=== PATIENT | male | born 1955 | race Caucasian/White ===

== ENCOUNTER → 2016-12-28 | Outpatient (CLI) | payer BC ==
[~2016-12-28] MED LIST: ATOR10TA82 PO; CRD4 PO; DOXA4TAB2 PO; LAMO100T16 PO; MIRT15TA PO; ROSU5TAB PO
== END | disposition home or self-care (01) ==
LOC: C.RDSM 15:07
PROVIDERS: ATTEND Family Medicine
DX: M54.18 Radiculopathy, sacral and sacrococcygeal region (principal); R10.30 Lower abdominal pain, unspecified

== ENCOUNTER → 2017-01-04 | Outpatient (CLI) | payer BC ==
--- NOTE | 2017-01-04 21:39 | DIAGNOSTIC IMAGING REPORT ---
LUMBAR SPINE MRI HISTORY: Low back pain. RT LUMBAR RADICULITIS TECHNIQUE: Multiplanar multisequence MRI of the lumbar spine was performed without the use of contrast. COMPARISON: Lumbar spine 12/28/2016. FINDINGS: For the purpose of the report the L5-S1 disc space will be located on axial image 27 of 30. No fracture or subluxation. Disc spaces are preserved for age. Paraspinal soft tissues are unremarkable. The conus terminates at the L1 level. Slightly heterogeneous marrow pattern which may be age-related. There are few scattered subcentimeter hemangioma within the vertebral bodies. Mild facet degenerative changes seen within the lower lumbar spine. L1-L2: No significant central canal or neural foraminal narrowing. L2-L3: No significant central canal or neural foraminal narrowing. L3-L4: No significant central canal or neural foraminal narrowing. L4-L5: No significant central canal or neural foraminal narrowing. L5-S1: No significant central canal or neural foraminal narrowing. IMPRESSION: 1. No significant central canal or neural foraminal narrowing. No disc herniations. 2. No fracture or subluxation within the lumbar spine. 3. Slightly heterogeneous marrow pattern within the visualized osseous structures. This may be age-related Electronically signed by: Donn Quispe M.D. 01/04/2017 9:37 PM Dictated Date/Time: 01/04/2017 9:30 PM
== END | disposition home or self-care (01) ==
LOC: C.MRI 19:39
PROVIDERS: ATTEND Family Medicine
DX: M54.16 Radiculopathy, lumbar region (principal); R10.30 Lower abdominal pain, unspecified

== ENCOUNTER → 2017-03-22 | Outpatient (CLI) | payer BC ==
[~2017-03-22] MED LIST changes: -ATOR10TA82 PO; +ATOR10TA88 PO; -DOXA4TAB2 PO; -MIRT15TA PO; -ROSU5TAB PO
--- NOTE | 2017-03-22 19:57 | DIAGNOSTIC IMAGING REPORT ---
MRI right knee RIGHT LOWER EXT JOINT WITHOUT CLINICAL HISTORY: R TIBIA NEUROPATHY Right pain. Trauma. TECHNIQUE: MRI multi axial acquisition COMPARISON STUDY: None FINDINGS: Normal signal characteristics the osseous structures throughout. No bone marrow replacing finding. Menisci are within normal limits. The collateral as well as cruciate ligaments are intact. All structures of the popliteal fossa are unremarkable. There is no evidence for abnormal mass or collection. IMPRESSION: 1. Overall negative study. 2. Normal-appearing popliteal fossa and associated components Electronically signed by: Vadim Stewart M.D. 03/22/2017 7:56 PM Dictated Date/Time: 03/22/2017 7:53 PM
== END | disposition home or self-care (01) ==
LOC: C.MRI 18:39
PROVIDERS: ATTEND Family Medicine
DX: G57.41 Lesion of medial popliteal nerve, right lower limb (principal); G57.31 Lesion of lateral popliteal nerve, right lower limb

== ENCOUNTER 2017-07-12 21:04 | Observation (INO) | payer BC ==
[~2017-07-12] VITALS: Ht 188 cm; Wt 92.7 kg
[2017-07-12 21:35] LABS: BASO % 0.5 %; BASO ABS # 0.03 K/uL (0-0.2); COMPLETE YES; HEMATOCRIT 39.4 % (42-52); IG% 0.3 %; LYMPH % 21.9 %; LYMPH ABS # 1.32 K/uL (1.2-3.4); MEAN CELL VOLUME 94.3 fL (80-100); MEAN CORPUSCULAR HEMOGLOBIN 32.1 pg (25-34); MEAN PLATELET VOLUME 8.5 fL (7.4-10.4); MONO % 11.6 %; NEUT % 63.7 %; PLATELET COUNT 180 K/uL (130-400); RED BLOOD COUNT 4.18 M/uL (4.7-6.1); WHITE BLOOD COUNT 6.03 K/uL (4.8-10.8)
[2017-07-12] MEDS ORDERED: SODIUM CHLORIDE 0.9% 1000ML 1,000 ML IV STA (21:35)
[2017-07-12] MEDS ORDERED: ASPIRIN 81 MG CHEW PO STA ×2 (21:35→21:37)
[2017-07-12] MEDS ORDERED: NITROGLYCERIN 0.4 MG SL PER TAB CHARGE SL PRN ×2 (21:45→23:45)
[2017-07-12 21:52] LABS: ALT/SGPT 28 U/L (12-78); BLOOD UREA NITROGEN 18 mg/dl (7-18); BUN/CREATININE RATIO 17.5 (10-20); CARBON DIOXIDE 29 mmol/L (21-32); CHLORIDE 104 mmol/L (98-107); CREATININE 1.04 mg/dl (0.60-1.40); GLUCOSE 96 mg/dl (70-99); POTASSIUM 3.7 mmol/L (3.5-5.1); SODIUM 139 mmol/L (136-145)
[2017-07-12 21:58] LABS: ALKALINE PHOSPHATASE 90 U/L (45-117); AST/SGOT 21 U/L (15-37); CKMB/CK RATIO 1.6 (0-3.0)
--- NOTE | 2017-07-12 22:15 | DIAGNOSTIC IMAGING REPORT ---
CHEST ONE VIEW PORTABLE HISTORY: Atypical CHEST PAIN COMPARISON: Chest 01/06/2012. FINDINGS: A few small bibasilar linear densities suggesting scarring or atelectasis. The lungs are otherwise clear. The heart is normal in size. No pleural effusions. No pneumothorax. Stable left upper rib deformities. IMPRESSION: No acute process. Electronically signed by: Donn Quispe M.D. 07/12/2017 10:14 PM Dictated Date/Time: 07/12/2017 10:13 PM
[2017-07-12] MEDS ORDERED: MIRT15TA PO (22:31)
[2017-07-12] MEDS ORDERED: ROSU5TAB PO (22:31)
[2017-07-12] MEDS ORDERED: DOXA4TAB2 PO (22:31)
--- NOTE | 2017-07-12 23:41 | History and Physical ---
History & Physical Date & Time of Service: Jul 12, 2017 at 23:41 Chief Complaint: Burning In Lt Side Chest, Jaw Into Ear, Tingling Primary Care Physician: Marty Uribe M.D. History of Present Illness Source: patient, family This is a 62 yo m with a history of HTN, HPL, depression and anxiety that is presenting to us after suffering from radiating chest pain this evening. The patient states he has recently started to walk on a treadmill in order to get healthy and today was the first day that he "increased the intensity". This was at around 1900 today. He started to notice left sided chest pain that was an ache and radiated down the left arm. It was a maximum of 3/10 in intensity. No nausea or SOB associated with the pain He was concerned that it was cardiac in nature as he has multiple family members with OR at the age of approx 61. He took a baby ASA and came to the ED. He received a full dose of ASA in the ED and ntg x 1 and pain was reduced to "a tingling sensation". This is the first time the patient has ever suffered from this type of pain. Non smoker Past Medical/Surgical History Medical Problems: (1) Pectus excavatum Status: Resolved Surgical Problems: (1) S/P hernia repair Status: Resolved Family History OR (myocardial infarction) Social History Smoking Status: Never Smoker Smokeless Tobacco Use: No Alcohol Use: socially Drug Use: none Marital Status: Housing status: lives with family Occupational Status: employed Immunizations History of Influenza Vaccine: Unknown History of Tetanus Vaccine?: Unknown History of Pneumococcal: Unknown History of Hepatitis B Vaccine: Unknown Multi-Drug Resistant Organisms History of MDRO: No Allergies Coded Allergies: No Known Allergies (Unverified , NONE, 04/07/09) Home Medications Scheduled Doxazosin Mesylate (Cardura), 4 MG PO DAILY Lamotrigine (Lamictal), 100 MG PO DAILY Mirtazapine (Remeron), 15 MG PO HS Rosuvastatin Calcium (Crestor), 5 MG PO DAILY Review of Systems Constitutional: No fever, No chills, No sweats Eyes: No worsening of vision ENT: No hearing loss Respiratory: No cough, No sputum, No wheezing, No shortness of breath, No dyspnea on exertion, No dyspnea at rest Cardiovascular: + chest pain, No palpitations Abdomen: No pain, No nausea, No vomiting, No diarrhea, No constipation Musculoskeletal: No joint pain, No muscle pain Genitourinary - Male: No hematuria, No dysuria Neurologic: No weakness, No numbness/tingling, No balance problems Psychiatric: + anxiety, No depression symptoms Endocrine: No fatigue Integumentary: No rash Physical Exam Vital Signs Date Time Temp Pulse Resp B/P (MAP) Pulse Ox O2 Delivery O2 Flow Rate FiO2 07/12/17 23:00 36.4 84 16 115/67 98 Room Air 07/12/17 22:36 84 16 128/75 97 Room Air 07/12/17 21:33 98 Room Air 07/12/17 21:26 78 16 131/87 95 Room Air 07/12/17 21:19 98 Room Air 07/12/17 21:17 97 Room Air 07/12/17 21:09 36.9 90 20 147/84 97 Room Air General Appearance: no apparent distress Head: normocephalic, atraumatic Eyes: normal inspection ENT: normal ENT inspection Neck: supple Respiratory/Chest: normal breath sounds, no respiratory distress, no accessory muscle use Cardiovascular: regular rate, rhythm, no murmur, normal peripheral pulses Abdomen/GI: normal bowel sounds, non tender, soft, no organomegaly Back: normal inspection, no CVA tenderness Extremities/Musculoskelatal: normal inspection, no calf tenderness, no pedal edema, normal range of motion Neurologic/Psych: alert, normal mood/affect, oriented x 3 Skin: normal color, warm/dry, no rash Lymphatic: no adenopathy Diagnostics Laboratory Results Results Past 24 Hours Test 07/12/17 21:20 Range/Units White Blood Count 6.03 4.8-10.8 K/uL Red Blood Count 4.18 4.7-6.1 M/uL Hemoglobin 13.4 14.0-18.0 g/dL Hematocrit 39.4 42-52 % Mean Corpuscular Volume 94.3 80-100 fL Mean Corpuscular Hemoglobin 32.1 25-34 pg Mean Corpuscular Hemoglobin Concent 34.0 32-36 g/dl Platelet Count 180 130-400 K/uL Mean Platelet Volume 8.5 7.4-10.4 fL Neutrophils (%) (Auto) 63.7 % Lymphocytes (%) (Auto) 21.9 % Monocytes (%) (Auto) 11.6 % Eosinophils (%) (Auto) 2.0 % Basophils (%) (Auto) 0.5 % Neutrophils # (Auto) 3.84 1.4-6.5 K/uL Lymphocytes # (Auto) 1.32 1.2-3.4 K/uL Monocytes # (Auto) 0.70 0.11-0.59 K/uL Eosinophils # (Auto) 0.12 0-0.5 K/uL Basophils # (Auto) 0.03 0-0.2 K/uL RDW Standard Deviation 45.9 36.4-46.3 fL RDW Coefficient of Variation 13.4 11.5-14.5 % Immature Granulocyte % (Auto) 0.3 % Immature Granulocyte # (Auto) 0.02 0.00-0.02 K/uL Sodium Level 139 136-145 mmol/L Potassium Level 3.7 3.5-5.1 mmol/L Chloride Level 104 98-107 mmol/L Carbon Dioxide Level 29 21-32 mmol/L Anion Gap 6.0 3-11 mmol/L Blood Urea Nitrogen 18 7-18 mg/dl Creatinine 1.04 0.60-1.40 mg/dl Est Creatinine Clear Calc Drug Dose 86.8 ml/min Estimated GFR () 89.4 Estimated GFR (Non- 77.1 BUN/Creatinine Ratio 17.5 10-20 Random Glucose 96 70-99 mg/dl Calcium Level 9.0 8.5-10.1 mg/dl Total Bilirubin 0.4 0.2-1 mg/dl Direct Bilirubin 0.1 0-0.2 mg/dl Aspartate Amino Transf (AST/SGOT) 21 15-37 U/L Alanine Aminotransferase (ALT/SGPT) 28 12-78 U/L Alkaline Phosphatase 90 45-117 U/L Total Creatine Kinase 79 39-308 U/L Creatine Kinase MB 1.3 0.5-3.6 ng/ml Creatine Kinase MB Ratio 1.6 0-3.0 Troponin I < 0.015 0-0.045 ng/ml Total Protein 7.1 6.4-8.2 gm/dl Albumin 3.9 3.4-5.0 gm/dl Lipase 99 73-393 U/L Diagnostic Radiology CHEST ONE VIEW PORTABLE HISTORY: Atypical CHEST PAIN COMPARISON: Chest 01/06/2012. FINDINGS: A few small bibasilar linear densities suggesting scarring or atelectasis. The lungs are otherwise clear. The heart is normal in size. No pleural effusions. No pneumothorax. Stable left upper rib deformities. IMPRESSION: No acute process. EKG 78 NSR, no ectopy, no acute ischemic changes Impression Assessment and Plan This is a 62 yo m with sudden onset chest pain with a significant family history of CAD that is here for evaluation of chest pain Chest pain/ Anginal equivalent Tele admission - echo in am, consider stress test if troponin negative - troponin trend - NPO after midnight in case patient is a candidate for cath - will defer CVS consult for now HTN Doxazosin 40 mg daily HLP - Rosuvastatin 5 mg Depression/ Anxiety Mirtazipine cont'd - Ativan HS - Lamictal 100 mg DVT prophylaxis SCD Attending Addendum: I have physically seen and examined this patient, have directed the resident's medical activities, and agree with the H&P as noted above with the following exceptions as noted. The patient is awake, alert and oriented 3, well-developed and well-nourished , normocephalic and atraumatic, lying in bed and in no acute distress. HEENT--PERRL, EOMI, mucous membranes and oropharynx dry. Neck--supple, no JVD or bruits, thyroid normal, trachea midline, no adenopathy. Heart--normal S1 and S2, no extra beats, no murmurs, rubs or gallops. Lungs--clear bilaterally with good air movement, no respiratory distress, no accessory muscle use. Abdomen--normal bowel sounds and soft, nontender and nondistended, no hernias or masses, no organomegaly. Extremities--no cyanosis, clubbing or edema. There are good distal pulses b/l. Dermatologic--normal skin turgor, normal color, warm and dry, no abnormal lymph nodes, no rash. Neurologic--cranial nerves II through XII grossly intact, motor and sensory examination normal. Rheumatologic--normal range of motion, nontender, muscles and joints. Psychiatric--normal affect. Assessment and Plan: Precordial chest pain/hypertension-- The patient will be admitted to telemetry for serial cardiac enzymes, cardiac rhythm monitoring and a 2-D echocardiogram with Dopplers. Aspirin 81 mg by mouth every morning. Continue Cardura 4 mg by mouth daily. Hyperlipidemia-- continue rosuvastatin 5 mg by mouth daily. Anxiety with depression-- continue mirtazapine 15 mg by mouth at bedtime and Lamictal 100 mg by mouth daily. Level of Care Telemetry Advanced Directives Existing Advance Directive: No Existing Living Will: No Existing Power of Application Internship: No Resuscitation Status FULL RESUSCITATION VTE Prophylaxis VTE Risk Assessment Done? Y/N: Yes Risk Level: Moderate Given or contraindicated: SCD's Social Service Consult None Apply Note Total Time: Critical Care 30 - 74 minutes Additional Copies To Marty Uribe M.D.
[2017-07-12] MEDS ORDERED: MoRPHine SULFATE 2 MG/ML CARP IV PRN (23:45)
[2017-07-12] MEDS ORDERED: POLYETHYLENE (MIRALAX) 17 GM PACK PO PRN (23:45)
[2017-07-12] MEDS ORDERED: ALUMINUM/MAGNESIUM/SIMETH (MAALOX MAX) 30 ML UDC PO PRN (23:45)
[2017-07-12] MEDS ORDERED: MAGNESIUM HYDROXIDE SUSP 30 ML UDC PO PRN (23:45)
[2017-07-12] MEDS ORDERED: ONDANSETRON INJ 2 MG/ML 2 ML VIAL IV PRN (23:45)
[2017-07-12] MEDS ORDERED: ACETAMINOPHEN 325 MG TAB PO PRN (23:45)
[2017-07-13] MEDS ORDERED: IV FLUIDS COMPLETED PRN (00:30)
[2017-07-13 00:45] VITALS: BP 136/85; PULSE 72; TEMP 36.7; O2SAT 99; Ht 188 cm; Wt 92.7 kg
[2017-07-13] MEDS ORDERED: LORAZEPAM 0.5 MG TAB PO PRN (01:00)
--- NOTE | 2017-07-13 01:41 | EMERGENCY ROOM VISIT NOTE ---
History Report prepared by Cesar: Macarena Sethi Under the Supervision of: Dr. Cyril German M.D. First contact with patient: 21:24 Chief Complaint: CARDIAC ASSESSMENT Stated Complaint: BURNING IN LT SIDE CHEST, JAW INTO EAR, TINGLING Nursing Triage Summary: pt reports he was running on the treadmill he developed left sided chest pain that radiated down his arms He initially stated the pain was relieved but now he is stating his fingers on the left side feel numb and tingly History of Present Illness The patient is a 62 year old male who presents to the Emergency Room with complaints of persistent chest pain starting around 1900 today. The patient was on the treadmill at work. He was going quickly. He got worn out and started feeling some strain in his left upper chest. Upon arriving home, he had a burning sensation in his chest which spread up to his jaw and down his left arm. At worst, his pain was a 3/10 in severity. The pain is now a numb and tingling sensation. He has never had this before. He took a baby aspirin prior to coming to the ED. He has been feeling healthy recently. He denies any history of heart or lung problems. He has a family history of AL in his father and grandfather in their 60s. He has never smoked. Pt denies LOC, headache, fevers, chills, diaphoresis, visual changes, neck pain, tearing pain radiating to the back, personal history or family history of aneurysm or pulmonary embolism, uncontrolled hypertension, breathing difficulties, leg swelling, coagulation abnormalities, prolonged travel, recent surgery or immobilization, nausea, vomiting, abdominal pain, melena, hematochezia, urinary symptoms, weakness, lymphadenopathy, rash, or other complaints. Source of History: patient Onset: 1899 Position: chest Symptom Intensity: 3/10 Quality: burning, numbness Timing: other (persistent) Note: Pt reports pain into his jaw and left arm. Review of Systems See HPI for pertinent positives and negatives. A total of ten systems were reviewed and were otherwise negative. Past Medical & Surgical Medical Problems: (1) Anginal equivalent (2) Pectus excavatum Surgical Problems: (1) S/P hernia repair Family History AL (myocardial infarction) Social History Smoking Status: Never Smoker Marital Status: Occupation Status: employed Current/Historical Medications Scheduled Doxazosin Mesylate (Cardura), 4 MG PO DAILY Lamotrigine (Lamictal), 100 MG PO DAILY Mirtazapine (Remeron), 15 MG PO HS Rosuvastatin Calcium (Crestor), 5 MG PO DAILY Allergies Coded Allergies: No Known Allergies (Unverified , NONE, 04/07/09) Physical Exam Vital Signs Date Time Temp Pulse Resp B/P (MAP) Pulse Ox O2 Delivery O2 Flow Rate FiO2 07/12/17 23:00 36.4 84 16 115/67 98 Room Air 07/12/17 22:36 84 16 128/75 97 Room Air 07/12/17 21:33 98 Room Air 07/12/17 21:26 78 16 131/87 95 Room Air 07/12/17 21:19 98 Room Air 07/12/17 21:17 97 Room Air 07/12/17 21:09 36.9 90 20 147/84 97 Room Air Physical Exam GENERAL: Awake, alert, well-appearing, in no distress HENT: Normocephalic, atraumatic. Oropharynx unremarkable. EYES: Normal conjunctiva. Sclera non-icteric. NECK: Supple. No nuchal rigidity. FROM. No JVD. RESPIRATORY: Clear to auscultation. CARDIAC: Regular rate, normal rhythm. Extremities warm and well perfused. Pulses equal. ABDOMEN: Soft, non-distended. No tenderness to palpation. No rebound or guarding. No masses. RECTAL: Deferred. MUSCULOSKELETAL: Chest examination reveals no tenderness. The back is symmetrical on inspection without obvious abnormality. There is no CVA tenderness to palpation. No joint edema. LOWER EXTREMITIES: Calves are equal size bilaterally and non-tender. No edema. No discoloration. NEURO: Normal sensorium. No sensory or motor deficits noted. SKIN: No rash or jaundice noted. Medical Decision & Procedures ER Provider Diagnostic Interpretation: Radiology results as stated below per my review and radiologist interpretation: CHEST ONE VIEW PORTABLE HISTORY: Atypical CHEST PAIN COMPARISON: Chest 01/06/2012. FINDINGS: A few small bibasilar linear densities suggesting scarring or atelectasis. The lungs are otherwise clear. The heart is normal in size. No pleural effusions. No pneumothorax. Stable left upper rib deformities. IMPRESSION: No acute process. Electronically signed by: Donn Quispe M.D. 07/12/2017 10:14 PM Dictated Date/Time: 07/12/2017 10:13 PM Laboratory Results 07/12/17 21:20 Red Blood Count 4.18, Mean Corpuscular Volume 94.3, Mean Corpuscular Hemoglobin 32.1, Mean Corpuscular Hemoglobin Concent 34.0, Mean Platelet Volume 8.5, Neutrophils (%) (Auto) 63.7, Lymphocytes (%) (Auto) 21.9, Monocytes (%) (Auto) 11.6, Eosinophils (%) (Auto) 2.0, Basophils (%) (Auto) 0.5, Neutrophils # (Auto ) 3.84, Lymphocytes # (Auto) 1.32, Monocytes # (Auto) 0.70, Eosinophils # (Auto ) 0.12, Basophils # (Auto) 0.03 07/12/17 21:20 Test 07/12/17 21:20 White Blood Count 6.03 K/uL (4.8-10.8) Red Blood Count 4.18 M/uL (4.7-6.1) Hemoglobin 13.4 g/dL (14.0-18.0) Hematocrit 39.4 % (42-52) Mean Corpuscular Volume 94.3 fL (80-100) Mean Corpuscular Hemoglobin 32.1 pg (25-34) Mean Corpuscular Hemoglobin Concent 34.0 g/dl (32-36) Platelet Count 180 K/uL (130-400) Mean Platelet Volume 8.5 fL (7.4-10.4) Neutrophils (%) (Auto) 63.7 % Lymphocytes (%) (Auto) 21.9 % Monocytes (%) (Auto) 11.6 % Eosinophils (%) (Auto) 2.0 % Basophils (%) (Auto) 0.5 % Neutrophils # (Auto) 3.84 K/uL (1.4-6.5) Lymphocytes # (Auto) 1.32 K/uL (1.2-3.4) Monocytes # (Auto) 0.70 K/uL (0.11-0.59) Eosinophils # (Auto) 0.12 K/uL (0-0.5) Basophils # (Auto) 0.03 K/uL (0-0.2) RDW Standard Deviation 45.9 fL (36.4-46.3) RDW Coefficient of Variation 13.4 % (11.5-14.5) Immature Granulocyte % (Auto) 0.3 % Immature Granulocyte # (Auto) 0.02 K/uL (0.00-0.02) Anion Gap 6.0 mmol/L (3-11) Est Creatinine Clear Calc Drug Dose 86.8 ml/min Estimated GFR () 89.4 Estimated GFR (Non- 77.1 BUN/Creatinine Ratio 17.5 (10-20) Calcium Level 9.0 mg/dl (8.5-10.1) Total Bilirubin 0.4 mg/dl (0.2-1) Direct Bilirubin 0.1 mg/dl (0-0.2) Aspartate Amino Transf (AST/SGOT) 21 U/L (15-37) Alanine Aminotransferase (ALT/SGPT) 28 U/L (12-78) Alkaline Phosphatase 90 U/L (45-117) Total Creatine Kinase 79 U/L (39-308) Creatine Kinase MB 1.3 ng/ml (0.5-3.6) Creatine Kinase MB Ratio 1.6 (0-3.0) Troponin I < 0.015 ng/ml (0-0.045) Total Protein 7.1 gm/dl (6.4-8.2) Albumin 3.9 gm/dl (3.4-5.0) Lipase 99 U/L (73-393) Laboratory results reviewed by me Medications Administered Medications (Trade) Dose Ordered Sig/Socrates Route Start Time Stop Time Status Last Admin Dose Admin Nitroglycerin (Nitrostat Tab) 0.4 mg Q5M PRN SL 07/12/17 21:45 07/13/17 00:01 DC 07/12/17 21:51 0.4 MG Sodium Chloride 1,000 ml @ 125 mls/hr Q8H STAT IV 07/12/17 21:35 07/13/17 01:01 DC 07/12/17 21:35 125 MLS/HR Aspirin (Aspirin Chew) 243 mg NOW STAT PO 07/12/17 21:37 07/12/17 21:38 DC 07/12/17 21:37 243 MG ECG Indication: chest pain Rate (beats per minute): 87 Rhythm: normal sinus Findings: RBBB, no acute ischemic change, no ectopy Comparison ECG Date: no prior available ED Course 2127: The patient was evaluated in room A12B. A complete history and physical exam was performed. 2134: NSS 1000 ml @ 125 mls/hr IV, Aspirin 243 mg PO. 2144: Nitroglycerin 0.4 mg SL. 2235: Upon reexamination, the patient was pain free after the nitro. I discussed the test results and treatment plan with him. The patient will be evaluated for further management. 2243: I discussed the patient's case with Dr. Leger and Dr. [place] [facility]. The patient will be evaluated for further treatment and disposition. 2340: The patient requested to speak with me. He wanted to add that he was lifting weights today. Medical Decision Triage Nursing notes reviewed. The patient's presentation and history were concerning for chest pain. Etiologies such as cardiac ischemia, aortic dissection, pulmonary embolism, pneumonia, pneumothorax, musculoskeletal, infections, gastrointestinal, as well as others were entertained. The patient was evaluated. He had exertional chest pain. He was given aspirin and nitroglycerin. His symptoms improved and his chest pain resolved. Chest x- ray, ECG, CBC, chemistry panel, LFTs, lipase and cardiac markers negative. The patient will need further evaluation and management in the hospital. He was in agreement. Consultation was made with internal medicine. The patient was evaluated in the Emergency Room for further management. Medication Reconcilliation Current Medication List: was personally reviewed by me Blood Pressure Screening Patient's blood pressure: Elevated blood pressure Blood pressure disposition: Elevated BP felt to be situational Consults Time Called: 2239 Consulting Physician: Dr. Leger and Dr. Lindsey [facility] [place] Returned Call: [phone] Discussed the patient's case. The patient will be evaluated for further treatment and disposition. Impression Primary Impression: Left sided chest pain Scribe Attestation The scribe's documentation has been prepared under my direction and personally reviewed by me in its entirety. I confirm that the note above accurately reflects all work, treatment, procedures, and medical decision making performed by me. Departure Information Dispostion Being Evaluated By Hospitalist Referrals Marty Uribe M.D. (PCP) Patient Instructions My [facility]
[2017-07-13] MEDS ORDERED: INFLUENZA VIRUS QUAD VACCINE 0.5 ML SYR IM. ONE (03:15)
[2017-07-13] MEDS ORDERED: INFLUENZA ADMINISTRATION CHARGE ONE (03:15)
[2017-07-13 03:35] VITALS: BP 116/67; PULSE 88; TEMP 36.8; O2SAT 95
[2017-07-13 04:00] VITALS: O2SAT 95
[2017-07-13 07:47] VITALS: BP 101/55; PULSE 73; TEMP 37.1; O2SAT 94
[2017-07-13] MEDS ORDERED: ROSUVASTATIN CALCIUM 10 MG TAB PO SCH (09:00)
[2017-07-13] MEDS ORDERED: DOXAZosin MESYLATE TAB 4 MG TAB PO SCH ×2 (09:00)
[2017-07-13] MEDS ORDERED: ATROPINE SULFATE 0.1 MG/ML 5ML SYR ONE (10:13)
[2017-07-13] MEDS ORDERED: DOBUTamine 500MG / 250ML D5W ONE (10:13)
[2017-07-13] MEDS ORDERED: METOPROLOL TARTRATE 1 MG/ML VIAL ONE (10:13)
[2017-07-13] MEDS ORDERED: PERFLUTREN LIPID MICROSPHERE (DEFINITY) IV ONE (10:54)
[2017-07-13 11:28] VITALS: BP 122/83; PULSE 80; TEMP 36.7; O2SAT 92
--- NOTE | 2017-07-13 12:41 | DOBUTAMINE ECHO ---
*NOTICE TO RECEIVING [employer] [employer] This information is strictly Confidential and protected under [place] law. [place] law prohibits you from making any further disclosure of this information unless further disclosure is expressly permitted by the written consent of the person to whom it pertains or is authorized by law. A general authorization for the release of medical or other information is not sufficient for this purpose. Hospital accepts no responsibility if the information is made available to any other person, INCLUDING THE PATIENT. Interpretation Summary * Conclusions -- * 1. Normal dobutamine stress echocardiogram at 91% of the maximum predicted heart rate. * 2. No dobutamine induced chest pain. * 3. No EKG changes. * 4. Baseline echocardiogram notes normal left ventricular systolic function without significant valvular pathology. Procedure Details * A contrast injection of Definity was performed to improve assessment of LV function. * Contrast was injected into an intravenous site in the right arm. * One vial of Definity ultrasound contrast was diluted in normal saline to a total volume of 10 ml. A total of '6' ml of solution was administered during imaging. * Lot # [id number] of Definity utilized for procedure. * Expiration date 07/13. * The attending nurse who injected the contrast agent was TITA JI RN. Left Ventricular Findings with Stress * Name: BOBBI SANCHEZ III Study Date: 07/13/2017 06:22 AM BP: 116/67 mmHg Patient Location: [facility]\\29\S\1 HR: 88 : 1955 (M/d/yyyy) Gender: Male Height: 74 in Age: 62 yrs Ethnicity: [place] Weight: 201 lb Ordering Physician: Selena Lindsey Performed By: Jacqueline Blanton [facility] Reason For Study: CHEST PAIN BSA: 2.2 m2 Left Ventricle * The left ventricle is normal in size. * There is borderline concentric left ventricular hypertrophy. * Ejection Fraction = 65-70%. * Left ventricular systolic function is normal. * Resting wall motion: Normal. Stress wall motion: Appropriate increase in Left ventricular systolic function and decrease in cavity size. No stress induced segmental wall motion abnormalities. Right Ventricle * The right ventricle is normal size. * The right ventricular systolic function is normal as assessed by tricuspid annular plane systolic excursion (TAPSE) (normal >1.5 cm). Atria * The left atrial size is normal. * Right atrial size is normal. * No ASD detected; PFO is not assessed. Mitral Valve * The mitral valve anatomy is normal. * There is no mitral valve stenosis. * Significant mitral regurgitation is absent. Tricuspid Valve * The tricuspid valve anatomy is normal. * No significant tricuspid stenosis. * Significant tricuspid regurgitation is absent. Aortic Valve * The aortic valve is normal in structure and function. * No hemodynamically significant valvular aortic stenosis. * No aortic regurgitation is present. Pulmonic Valve * The pulmonary valve is not well seen, but the Doppler examination is normal without significant regurgitation or stenosis. Great Vessels * The aortic root and proximal ascending aorta are normal sized. * The pulmonary artery is not well visualized, but is probably normal size. Pericardium * There is no pericardial effusion. Stress Parameters * Normal baseline electrocardiogram. * Stress ECG: No ST changes. No arrhythmias. * The stress portion of this study was personally supervised by the undersigned interpreting physician. * Rest heart rate was '72' BPM. * Rest blood pressure was '108/58' * Maximum heart rate achieved was 148 bpm. * Maximum heart rate was 87 % of maximum age-predicted heart rate. * Maximum blood pressure was '165/67' * Total exercise time was '12:00' * Maximum Dobutamine infusion rate was '40' mcg/kg/min. * A total of 0.75 mg of intravenous Atropine was used to supplement Dobutamine for heart rate response. * Dobutamine infusion was terminated due to achieving target heart rate * A total of 10 mg of IV Metoprolol was administered to reverse Dobutamine-induced tachycardia. * The patient did not exhibit any symptoms during drug infusion. * Normal blood pressure response to exercise. * Target heart rate achieved. Left Ventricular Findings with Stress * A complete two-dimensional transthoracic echocardiogram was performed (2D, M-mode, Doppler and color flow Doppler). MMode 2D Measurements and Calculations IVSd 1.3 cm IVSs 1.8 cm LVIDd 5.3 cm LVIDs 3.2 cm LVPWd 1.0 cm LVPWs 1.8 cm IVS/LVPW 1.3 FS 39.7 % EDV(Teich) 136.0 ml ESV(Teich) 41.1 ml EF(Teich) 69.8 % EDV(cubed) 149.8 ml ESV(cubed) 32.9 ml EF(cubed) 78.0 % % IVS thick 37.6 % % LVPW thick 73.0 % LV mass(C)d 251.6 grams LV mass(C)dI 115.5 grams/m\S\2 LV mass(C)s 236.8 grams LV mass(C)sI 108.7 grams/m\S\2 CO(Teich) 6.6 l/min CI(Teich) 3.0 l/min/m\S\2 SV(Teich) 94.9 ml SI(Teich) 43.6 ml/m\S\2 CO(cubed) 8.2 l/min CI(cubed) 3.8 l/min/m\S\2 SV(cubed) 116.9 ml SI(cubed) 53.7 ml/m\S\2 ACS 1.7 cm LA dimension 3.2 cm asc Aorta Diam 3.2 cm LVOT diam 2.2 cm LVOT area 3.7 cm\S\2 LVAd ap4 32.1 cm\S\2 LVLd ap4 8.0 cm EDV(MOD-sp4) 107.0 ml LVAs ap4 16.1 cm\S\2 LVLs ap4 6.2 cm ESV(MOD-sp4) 35.5 ml EF(MOD-sp4) 66.8 % LVAd ap2 28.1 cm\S\2 LVLd ap2 7.4 cm EDV(MOD-sp2) 90.5 ml LVAs ap2 13.7 cm\S\2 LVLs ap2 5.6 cm ESV(MOD-sp2) 28.3 ml EF(MOD-sp2) 68.7 % CO(MOD-sp4) 5.0 l/min CI(MOD-sp4) 2.3 l/min/m\S\2 SV(MOD-sp4) 71.5 ml SI(MOD-sp4) 32.8 ml/m\S\2 CO(MOD-sp2) 4.4 l/min CI(MOD-sp2) 2.0 l/min/m\S\2 SV(MOD-sp2) 62.2 ml SI(MOD-sp2) 28.6 ml/m\S\2 Doppler Measurements and Calculations MV E max kaushal 73.2 cm/sec MV A max kaushal 56.8 cm/sec MV E/A 1.3 MV dec time 0.31 sec Ao V2 max 146.4 cm/sec Ao max PG 8.6 mmHg Ao max PG (full) 3.9 mmHg REYNALDO(V,A) 2.7 cm\S\2 REYNALDO(V,D) 2.7 cm\S\2 LV V1 max PG 4.6 mmHg LV V1 max 107.7 cm/sec MR max kaushal 321.7 cm/sec MR max PG 41.4 mmHg PA V2 max 48.0 cm/sec PA max PG 0.92 mmHg
--- NOTE | 2017-07-13 14:08 | Discharge Instructions ---
Discharge Instructions Date of Service Jul 13, 2017. Admission Reason for Admission: Anginal Equivalent Discharge Discharge Diagnosis / Problem: Chest pain ruled out for acute coronary syndrome Discharge Goals Goal(s): Decrease discomfort Activity Recommendations Activity Limitations: resume your previous activity . Instructions / Follow-Up Instructions / Follow-Up Follow up with family physician in one week Current Hospital Diet Patient's current hospital diet: AHA Diet (Heart Healthy), Low Sodium Diet (2gm Na) Discharge Diet Recommended Diet: AHA Diet (Heart Healthy) Pending Studies Studies pending at discharge: no Medical Emergencies . Who to Call and When: Medical Emergencies: If at any time you feel your situation is an emergency, please call 911 immediately. . Non-Emergent Contact Non-Emergency issues call your: Primary Care Provider . . "Provider Documentation" section prepared by Zohreh Ambrocio. . VTE Core Measure Inpt VTE Proph given/why not?: SCD's
[2017-07-13 14:16] VITALS: BP 122/83; PULSE 80; TEMP 36.7; O2SAT 92
--- NOTE | 2017-07-13 14:39 | Discharge Summary ---
Discharge Summary Date of Service Jul 13, 2017. (Alka. Shane MD) Discharge Summary Admission Date: Jul 12, 2017 at 23:34 Discharge Date: Jul 13, 2017 Discharge Disposition: Home Principal Diagnosis: Chest pain ruled out for acute coronary syndrome Immunizations: Have You Had Influenza Vaccine: Unknown History of Tetanus Vaccine?: Unknown History of Pneumococcal: Unknown History of Hepatitis B Vaccine: Unknown Procedures: Dobutamine echo Conclusions -- n 1. Normal dobutamine stress echocardiogram at 91% of the maximum predicted heart rate. n 2. No dobutamine induced chest pain. n 3. No EKG changes. n 4. Baseline echocardiogram notes normal left ventricular systolic function without significant valvular pathology. Consultations: Cardiology (Alka. Shane MD) Medication Reconciliation Continued Medications: Doxazosin Mesylate (Cardura) 4 Mg Tab 4 MG PO DAILY, TAB Lamotrigine (Lamictal) 100 Mg Tab 100 MG PO DAILY Mirtazapine (Remeron) 15 Mg Tab 15 MG PO HS, TAB Rosuvastatin Calcium (Crestor) 5 Mg Tab 5 MG PO DAILY, TAB Discharge Exam Patient feeling well this morning, denies acute overnight events. Denies any new onset chest pain, shortness of breath, palpitations, heart racing. In hindsight leaves that his chest pain might be related to activities at the gym today prior. He is relieved to know that his test results have come back without evidence of acute coronary event. ROS unremarkable except as noted above. Physical Exam: General Appearance: WD/WN, no apparent distress Eyes: normal inspection ENT: hearing grossly normal Neck: supple, no carotid bruits Respiratory/Chest: lungs clear, normal breath sounds, no respiratory distress, no accessory muscle use Cardiovascular: regular rate, rhythm, no murmur, normal peripheral pulses Abdomen / GI: normal bowel sounds, non tender, soft Extremities: no calf tenderness, normal capillary refill, no pedal edema Neurologic/Psychiatric: alert, normal mood/affect, oriented x 3 Skin: normal color, warm/dry, no rash (Alka. Shane MD) denies anymore chest pain. no shortness of breath. Review of Systems: Constitutional: No fever Respiratory: No shortness of breath Cardiovascular: No chest pain Physical Exam: General Appearance: no apparent distress Respiratory/Chest: lungs clear, no respiratory distress Cardiovascular: regular rate, rhythm Abdomen / GI: normal bowel sounds, non tender, soft Neurologic/Psychiatric: alert, oriented x 3 Skin: warm/dry (Zohreh Ambrocio M.D.) Hospital Course 62 yo M with sudden onset chest pain with no personal, but significant family history of CAD that is here for evaluation of chest pain. Chest pain/ anginal equivalent - Troponin trended, negative x 3 sets. - Stress dobutamine echo was also reassuring - Cardiac catheterization not warranted at this time - Advised healthy lifestyle practices HTN - Continue doxazosin 40 mg daily HLD - Continue rosuvastatin 5 mg Depression/ Anxiety/ Bipolar - Continue mirtazipine, Ativan HS, Lamictal 100 mg DVT prophylaxis - SCD Total Time Spent: Less than 30 minutes This includes examination of the patient, discharge planning, medication reconciliation, and communication with other providers. (Alka. Shane MD) Resident Physician Supervision Note: I independently interviewed and examined the patient and verified the dobbins history and physical, reviewed labs and image studies, discussed the case with the resident Dr. Shane and agree with the findings and care plan. Total Time Spent: Greater than 30 minutes (35) (Zohreh Ambrocio M.D.) Discharge Instructions Please refer to the electronic Patient Visit Report (Discharge Instructions) for additional information. (Alka. Shane MD) Additional Copies To Marty Uribe M.D. Resident Tracking Resident Involvement: Resident Care Provided Care Provided: Adult Hospital Medicine (Alka. Shane MD)
[2017-07-13] MEDS ORDERED: MIRTAZAPINE TAB 15 MG TAB PO SCH (21:00)
== END 2017-07-13 14:59 | disposition home or self-care (01) ==
LOC: C.EDB 21:06 → C.2T 23:34 → ENRESERV 07-13 00:14
PROVIDERS: ADMIT Student in an Organized Health Care Education/Training Program; ATTEND Family Medicine
DX: R07.9 Chest pain, unspecified (principal); Z82.49 Family history of ischemic heart disease and other diseases of the circulatory system; Z98.890 Other specified postprocedural states; Z79.899 Other long term (current) drug therapy

== ENCOUNTER → 2017-11-24 | Outpatient (CLI) | payer BC ==
[~2017-11-24] MED LIST changes: -ATOR10TA88 PO; -CRD4 PO; +DOXA4TAB2 PO; +MIRT15TA PO; +ROSU5TAB PO
--- NOTE | 2017-11-24 10:00 | DIAGNOSTIC IMAGING REPORT ---
(BARIUM SWALLOW) ESOPHAGUS CLINICAL HISTORY: CHRONIC GERDdyspepsia COMPARISON STUDY: None FLUOROSCOPY TIME: 1.2 minutes. FINDINGS: Patient initiated swallowing function well. There is a trace amount of penetration but no evidence for lianna aspiration. Esophagus is normal throughout. There is a very small hiatal hernia. There is minimal gastroesophageal reflux. IMPRESSION: 1. Trace amount of penetration with no evidence for lianna aspiration. 2. Swallowing function is otherwise normal. 3. Very small hiatal hernia with minimal reflux. The above report was generated using voice recognition software. It may contain grammatical, syntax or spelling errors. Electronically signed by: Vadim Stewart M.D. 11/24/2017 9:59 AM Dictated Date/Time: 11/24/2017 9:56 AM
== END | disposition home or self-care (01) ==
LOC: C.RAD 09:14
PROVIDERS: ATTEND Family Medicine
DX: K21.9 Gastro-esophageal reflux disease without esophagitis (principal); K44.9 Diaphragmatic hernia without obstruction or gangrene; Z88.8 Allergy status to other drugs, medicaments and biological substances; Z91.048 Other nonmedicinal substance allergy status

== ENCOUNTER 2023-10-29 12:38 | Inpatient (IN) ==
--- OUTSIDE RECORDS SUMMARY | 2023-10-29 12:41 | External Medical Summary | Continuity of Care Document ---
Author Name Unknown Organization [facility] [address] [place] [phone] Care Team Providers Care Online Services Manager Name Role Phone Marty Uribe Primary Care Physician [phone] Encounter [id number] Date(s): 09/06/23 - 09/06/23 [facility] [address] [facility] [address] [facility] [address] [place] [address] [phone] Encounter Diagnosis Hx of bacterial pneumonia(Discharge Diagnosis) - 09/06/23 Costochondral pain(Discharge Diagnosis) - 09/06/23 Discharge Disposition: Home or Self Care Attending Physician: MD Howard Christopher Allergies, Adverse Reactions, Alerts Substance Reaction Severity Status atorvastatin depression muscle aches Active Flomax Dysuria and frequency Active levoFLOXacin neuropathy in legs Active Dust Active Pollen Active Immunizations Given and Recorded Vaccine Date Status Refusal Reason SARS-CoV-2 (COVID-19) mRNA-vacc - [id number] 1 06/21/23 Recorded SARS-CoV-2 mRNA (Pfizer 12+) bivalent 2 01/31/23 R ecorded pneumococcal 20-valent conjugate vaccine 07/07/22 Given SARS-CoV-2 mRNA (tozinameran 5y-11y) 06/16/22 Saroj rded influenza virus vaccine, inactivated 06/16/22 Saroj rded influenza virus vaccine, inactivated 06/26/16 Saroj rded influenza virus vaccine, inactivated 06/26/15 Saroj rded pneumococcal 23-valent vaccine 03/19/21 Given pneumococcal 23-valent vaccine 10/01/10 Recorded SARS-CoV-2 (COVID-19) mRNA-1273 vaccine 3 01/17/21 Recorded SARS-CoV-2 (COVID-19) mRNA-1273 vaccine 4 3/27/21 Recorded tetanus/diphtheria/pertuss, acel (Tdap) 01/02/19 G iven tetanus/diphtheria/pertuss, acel (Tdap) 07/14/08 R ecorded zoster vaccine live 06/22/17 Recorded zoster vaccine live 5 06/20/17 Recorded zoster vaccine live 12/07/16 Recorded hepatitis A adult vaccine 11/30/16 Given hepatitis A adult vaccine 07/14/08 Recorded typhoid vaccine, inactivated 07/14/08 Recorded hepatitis B adult vaccine 03/14/98 Recorded hepatitis B adult vaccine 09/13/97 Recorded hepatitis B adult vaccine 08/14/97 Recorded 1Result Comment: 2023-09-06: Historical information-source unspecified 2Result Comment: 2023-09-06: Historical information-source unspecified 3Result Comment: 2021-03-19: Historical information-source unspecified 4Result Comment: 2021-03-19: Historical information-source unspecified 5Result Comment: 2021-03-19: Historical information-source unspecified Medications Cialis 5 mg oral tablet Start: 12/06/17 9:11:00, 1 tab, PO, Daily, PRN: as needed for erectile dysfunction Start Date: 12/06/17 Status: Ordered doxazosin 8 mg oral tablet Start: 05/27/23 8:58:00 EDT, 1 tab, PO, Daily, Disp# 90 tab, Refills: 3, Pharmacy: [facility]/pharmacy #[id number] Start Date: 05/27/23 Status: Ordered famotidine 20 mg oral tablet Start: 07/07/22 9:44:00 EDT, 1 tab, PO, bid Start Date: 07/07/22 Status: Ordered Flonase 50 mcg/inh nasal spray Start: 07/20/23 13:29:00 EDT, 2 spray, each nostril, Daily, Disp# 3 each, Refills: 5, in each nostril, Pharmacy: [facility]/pharmacy #[id number] Start Date: 07/20/23 Status: Ordered gabapentin 300 mg oral capsule Start: 09/01/23 13:17:00 EST, See Instructions, Disp# 150 tab, Refills: 3, take 5 caps/day as directed, Note to Pharmacy: temp increase from 3 cap/day in conjunction with 2cap/day of 600mg dose, Pharmacy: [facility]/pharmacy #[id number] Start Date: 09/01/23 Status: Ordered gabapentin 600 mg oral tablet Start: 10/18/22 15:30:00 EST, 1 tab, PO, bid, Disp# 60 tab, Refills: 5, concurrent with 300mg TID dosing, Pharmacy: [facility]/pharmacy #[id number] Start Date: 10/18/22 Stop Date: 04/16/23 Status: Ordered Gas-X 80 mg oral tablet, chewable Start: 07/20/23 13:00:00 EDT, 1 tab, PO, pc and hs Start Date: 07/20/23 Status: Ordered LaMICtal 25 mg oral tablet Start: 08/22/23 16:17:00 EST, 1 tab, PO, Daily Start Date: 08/22/23 Status: Ordered lamoTRIgine 100 mg oral tablet Start: 08/22/23 16:16:00 EST, 1 tab, PO, Daily Start Date: 08/22/23 Status: Ordered Methylphenidate Hydrochloride LA 20 mg/24 hr oral capsule, extended release Start: 07/07/22 9:07:00 EDT, Refills: 0 Start Date: 07/07/22 Status: Ordered mirtazapine 15 mg oral tablet Start: 07/07/22 9:08:00 EDT, 1 tab, PO, qhs Start Date: 07/07/22 Status: Ordered pantoprazole 40 mg oral delayed release tablet Start: 11/26/22 10:08:00 EST, 1 tab, PO, Daily, Disp# 90 tab, Refills: 3, Pharmacy: [facility]/pharmacy #[id number] Start Date: 11/26/22 Status: Ordered propranolol 10 mg oral tablet Start: 03/21/18 9:06:00 EDT, See Instructions, 1 tab as needed Start Date: 03/21/18 Status: Ordered rosuvastatin 5 mg oral tablet Start: 07/18/23 13:06:00 EDT, 1 tab, PO, qhs, Disp# 90 tab, Refills: 4, Pharmacy: [id number] Start Date: 07/18/23 Status: Ordered triamcinolone 0.1% topical cream Start: 03/28/23 10:32:00 EDT, 1 appl, topical, bid, Disp# 15 g, Refills: 0, apply a thin film to affected area, Pharmacy: [id number] Start Date: 03/28/23 Status: Ordered Mental Status 09/06/23 Barriers to Learning one year None evide nt Mandatory Health Literacy Documentation Yes Health Literacy Communication Barriers N ever Primary Language Chinese Problem List Condition Confirmation Course Effective Dates Status H ealth Status Informant ADD (Attention Deficit Hyperactivity Disorder, Inattentive Type) Confirmed Active Costochondral pain Confirmed Active Benign prostatic hypertrophy with outflow obstruction Confirmed Active Bipolar disease, chronic Confirmed Active Cardiomegaly Confirmed Active Eczema Confirmed Active Family history of prostate cancer 1 Confirmed Active GERD Confirmed Active Hx of bacterial pneumonia Confirmed Active Hiatal hernia Confirmed Active Hyperacusis of right ear Confirmed Active High blood cholesterol level 2 Confirmed Active Low back pain Confirmed Active Mild bipolar II disorder, most recent episode major depressive. 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 Nevus 3 Confirmed Active Right patellofemoral syndrome Confirmed Active TV (tinea versicolor) Confirmed Active Polyp 4 Confirmed Active Seasonal allergic rhinitis Confirmed Active Vocal fold nodules Confirmed Active Subdeltoid bursitis of left shoulder joint Confirmed Active Right tibial neuropathy Confirmed Active TINNITUS Confirmed Active Weight disorder Confirmed Active 1Father at 78 2increased 3atypical 4hyperplastic Diagnosis Diagnosis Type Effective Dates Health Status Clinical Service Informant Costochondral pain Discharge Diagnosis 09/06/23 Hx of bacterial pneumonia Discharge Diagnosis 09/06/23 Procedures Procedure Date Related Diagnosis Body Site Status Esophagogastroduodenoscopy 1 08/25/22 Completed Excision 08/16/19 Completed Operative procedure Endoscop ic Sinus surgery 2 01/11/19 Completed History of nasal sinus surgery 12/27/[address] of abdomen and pelvis 3 12/13/[address] of abdomen and pelvis wit hout contrast 4 12/13/18 Completed Colonoscopy 5 08/14/18 Completed Barium swallow 6 11/24/17 Complete d Upper GI endoscopy 7 10/26/17 Comp leted Echocardiogram 8 07/14/17 Complete d Chest x-ray 9 07/12/17 Completed EKG 10 07/12/17 Completed Emergency medical services 11, 12 07/12/17 Completed MRI arthrography of knee 13 03/22/17 Completed MRI of lumbar spine 14 01/04/17 Co mpleted Ultrasound scan of abdominal vessels 15 09/15/16 Completed Full sleep study 01/04/16 Complete d Laryngeal stroboscopy 16 11/27/15 Completed Tongue mass 17 10/1/15 Completed X-ray of left foot 18 12/05/14 Com pleted LASIK 19 07/27/14 Completed colonoscopy-[facility] 06/01/13 Completed Colonoscopy normal 20 05/27/13 Com pleted Stress ECHO-- 21 12/04/10 Complete d COLONOSCOPY-- WNL (NO POLYPS) 02/24/09 Completed Cystoscopy 10/27/06 Completed COLONOSCOPY--Polypectomy 02/24/06 Completed Nasal Maxillary Sinus Surgery 1992 Completed Hematocoel--Right Side 1985 Co mpleted BILATERAL Hernia Repair-1965, 1967 1967 Completed Hydrocoelectomy RIGHT 1967 Com pleted Appendectomy 1965 Completed Benign Cyst removed RIGHT Thorax 1963 Completed PECTUS EXCAVATUM Repair 1955 C ompleted 1EGD irreg Z line bx, gastric polyp bx, 2Actual Procedures: p Endoscopic sinus surgery, left and right frontal, total ethmoidectomies and maxillary (left) - Zoran Hoffmann MD 3No urinary calculi or hydronephrosis. No acute process within the abdomen or pelvis on unenhanced exam. Moderate cardiomegaly. 4Impression: 1. No urinary calculi or hydronephrosis. 2. No acute process within the abdomen or the pelvis on unenhanced exam. 3. Moderate cardiomegaly. 5Impression Diverticulosis in the sigmoid colon One 2mm polyp in the sigmoid colon, removed with a cold biopsy forceps. Resected and retrieved The examination was othervise normal Repeat in 5 years 61. Trace amount of penetration with no evidence of lianna aspiration. 2. Swallowing fucition is normal. 3. Very small hiatal hernia with minimal reflux. 7Z-line regular, 50cm from the incisors. Normal esophagus, stomach, duodenum; no specimens collected. 8Normal dobutamine stress echocardiogram at 91% of the maximum predicted heart rate. 9no acute process 10normal sinus, RBBB no acuaste ischemic change, no ectopy 11chest pain with pain jaw to ear, burning left side of chest 12admitted for further evaluation 13right knee mri /negative study 14No significant central canal or neural foraminal narrowing. No disc herniations. No fractrue or subluxation within the lumbar spine. Slightly eterogeneous marrow pattern within t he vizualixed osseous structures. This may be age related. 15No evidence for right inguinal hernia 16bilateralvocal fold nodules - Vadim Gomez [facility] speech language pathologist 17EXCISED 18Negative study 19OU 20WNL--Repeat in 5 years 21RBBB, EF 55-60 %, No acutre abnl Vital Signs Most recent to oldest [Reference Range]: 1 Patient Weight 76.2 kg (09/06/23 11:16 AM) Temperature [36.5-37.9 DegC] 36.7 DegC (09/06/23 11:16 AM) Heart Rate 62 bpm (09/06/23 11:16 AM) Respiratory Rate 16 br/min (09/06/23 11:16 AM) Blood Pressure 98/76mmHg (09/06/23 11:16 AM) Social History Social History Type Response Smoking Status Never smoked cigaret layo Sex Patient Care team information Care Team Personnel Name: MD Griffin, Tima Acharya Position: Physician - Family Med Member Role: Lifetime Relationship Address: Address: [address] [place] [address] Name: DO Mo Amanda Position: Resident Member Role: Lifetime Relationship Address: Address: [address] [place] [address] [place] Name: MD Jojo, Marty Cheek Position: Physician - Family Med Member Role: Primary Care Provider Address: Address: [address] [place] [address] Care Team Related Persons Name: MER SANCHEZ Address: home [address] [place] [phone] Name: MER SANCHEZ Address: [facility] Address: home [address] [place], [place] [phone]
--- OUTSIDE RECORDS SUMMARY | 2023-10-29 12:41 | External Medical Summary | Continuity of Care Document ---
Author Name Unknown Organization [facility] [address] [place] [phone] Care Team Providers Care Water Purifier Operator Name Role Phone Marty Uribe Primary Care Physician [phone] Encounter [facility] [phone] Date(s): 08/29/23 - 08/29/23 [facility] 0 [facility] 207 [facility] [address] [address] [phone] Encounter Diagnosis Body mass index [BMI] 21.0-21.9, adult(Discharge Diagnosis) - 08/29/23 Pneumonia(Discharge Diagnosis) - 08/29/23 Discharge Disposition: Home or Self Care Attending Physician: MD Wood Dongsheng Allergies, Adverse Reactions, Alerts Substance Reaction Severity Status atorvastatin depression muscle aches Active Flomax Dysuria and frequency Active Dust Active Pollen Active levoFLOXacin neuropathy in legs Active Assessment and Plan Extracted from: Title:Office Visit Note Author:MD Israel, Melissa phelps Date:08/29/23 1.Pneumonia STATUS: Chronic stable: Chronic uncontrolled: x Acute uncomplicated: Acute illness with systemic symptoms: x Undiagnosed new problems with uncertain prognosis: Chronic illnesses with exacerbation, progression, or side effects of treatment: 1 acute complicated injury: DATA: Review of prior external note(s) from each unique source: Review of the result(s) of each unique test: Ordering of each unique test: x Assessment requiring independent historian(s): GOAL: Resolution PLAN: will do CXR.switch doxy to z tenzin. fluid. rest. Reviewed use of medication and common side effects. Advised patient to read the drug insert and discuss with pharmacist further on potential side effects. Patient will call back with any possible side effects. Patient expressed understanding and agrees with plan. call and f/u prn Immunizations Given and Recorded Vaccine Date Status Refusal Reason pneumococcal 20-valent conjugate vaccine 07/07/22 Given SARS-CoV-2 mRNA (tozinameran 5y-11y) 06/16/22 Saroj rded influenza virus vaccine, inactivated 06/16/22 Saroj rded influenza virus vaccine, inactivated 06/26/16 Saroj rded influenza virus vaccine, inactivated 06/26/15 Saroj rded pneumococcal 23-valent vaccine 03/19/21 Given pneumococcal 23-valent vaccine 10/01/10 Recorded SARS-CoV-2 (COVID-19) mRNA-1273 vaccine 1 01/17/21 Recorded SARS-CoV-2 (COVID-19) mRNA-1273 vaccine 2 12/20/20 Recorded tetanus/diphtheria/pertuss, acel (Tdap) 01/02/19 G iven tetanus/diphtheria/pertuss, acel (Tdap) 07/14/08 R ecorded zoster vaccine live 06/22/17 Recorded zoster vaccine live 3 06/20/17 Recorded zoster vaccine live 12/07/16 Recorded hepatitis A adult vaccine 11/30/16 Given hepatitis A adult vaccine 07/14/08 Recorded typhoid vaccine, inactivated 07/14/08 Recorded hepatitis B adult vaccine 03/14/98 Recorded hepatitis B adult vaccine 09/13/97 Recorded hepatitis B adult vaccine 08/14/97 Recorded 1Result Comment: 2021-03-19: Historical information-source unspecified 2Result Comment: 2021-03-19: Historical information-source unspecified 3Result Comment: 2021-03-19: Historical information-source unspecified Medications Azithromycin 5 Day Dose Pack 250 mg oral tablet Start: 08/29/23 11:02:00 EST, 1 tab, PO, Daily, Disp# 6 tab, take 2 pills on day 1, Pharmacy: [facility]/pharmacy #[id number] Start Date: 08/29/23 Stop Date: 09/03/23 Status: Ordered Cialis 5 mg oral tablet Start: 12/06/17 9:11:00, 1 tab, PO, Daily, PRN: as needed for erectile dysfunction Start Date: 12/06/17 Status: Ordered doxazosin 8 mg oral tablet Start: 05/27/23 8:58:00 EDT, 1 tab, PO, Daily, Disp# 90 tab, Refills: 3, Pharmacy: [facility]/pharmacy #[id number] Start Date: 05/27/23 Status: Ordered famotidine 20 mg oral tablet Start: 07/07/22 9:44:00 EDT, 1 tab, PO, bid Start Date: 07/07/22 Status: Ordered Flonase 50 mcg/inh nasal spray Start: 07/20/23 13:29:00 EDT, 2 spray, each nostril, Daily, Disp# 3 each, Refills: 5, in each nostril, Pharmacy: [facility]/pharmacy #[id number] Start Date: 07/20/23 Status: Ordered gabapentin 300 mg oral capsule Start: 10/18/22 15:30:00 EST, 1 cap, PO, tid, Disp# 90 cap, Refills: 5, Pharmacy: [facility]/pharmacy #[id number] Start Date: 10/18/22 Stop Date: 04/16/23 Status: Ordered gabapentin 600 mg oral tablet Start: 10/18/22 15:30:00 EST, 1 tab, PO, bid, Disp# 60 tab, Refills: 5, concurrent with 300mg TID dosing, Pharmacy: [facility]/pharmacy #[id number] Start Date: 10/18/22 Stop Date: 04/16/23 [...] Daily, Disp# 90 tab, Refills: 3, Pharmacy: [facility]/pharmacy #[id number] Start Date: 11/26/22 Status: Ordered propranolol 10 mg oral tablet Start: 03/21/18 9:06:00 EDT, See Instructions, 1 tab as needed Start Date: 03/21/18 Status: Ordered rosuvastatin 5 mg oral tablet Start: 07/18/23 13:06:00 EDT, 1 tab, PO, qhs, Disp# 90 tab, Refills: 4, Pharmacy: [id number] Start Date: 07/18/23 Status: Ordered triamcinolone 0.1% topical cream Start: 03/28/23 10:32:00 EDT, 1 appl, topical, bid, Disp# 15 g, Refills: 0, apply a thin film to affected area, Pharmacy: [facility] #[id number] Start Date: 03/28/23 Status: Ordered Mental Status 08/29/23 Barriers to Learning one year None evide nt Mandatory Health Literacy Documentation Yes Health Literacy Communication Barriers N ever Primary Language Cymraes Problem List Condition Confirmation Course Effective Dates Status H ealth Status Informant ADD (Attention Deficit Hyperactivity Disorder, Inattentive Type) Confirmed Active Anemia Confirmed Active Benign prostatic hypertrophy with outflow obstruction Confirmed Active Biceps tendonitis on left Confirmed Active Bipolar disease, chronic Confirmed Active Cardiomegaly Confirmed Active Prostatitis, chronic Confirmed Active Colitis Confirmed Active Conjunctivitis of both eyes Confirmed Active Eczema Confirmed Active Family history of prostate cancer 1 Confirmed Active Flank pain Confirmed Active Gastritis Confirmed Active GERD Confirmed Active HDL measurement 2 Confirmed Active Hiatal hernia Confirmed Active Hyperacusis of right ear Confirmed Active High blood cholesterol level 3 Confirmed Active Ingrown toenail Confirmed Active Rt groin pain Confirmed Active Low back pain Confirmed Active Mild bipolar II disorder, most recent episode major depressive. 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 Nevus 4 Confirmed Active Left arm pain Confirmed Active Numbness and tingling of left leg Confirmed Active Prostate cancer screening Confirmed Active Right patellofemoral syndrome Confirmed Active Piriformis syndrome of right side Confirmed Active TV (tinea versicolor) Confirmed Active Plantar fasciitis, left Confirmed Active Polyp 5 Confirmed Active Polyp of colon Confirmed Active Seasonal allergic rhinitis Confirmed Active Left shoulder pain Confirmed Active Vocal fold nodules Confirmed Active Sinusitis Confirmed Active Subdeltoid bursitis of left shoulder joint Confirmed Active Right tibial neuropathy Confirmed Active TINNITUS Confirmed Active Weight disorder Confirmed Active 1Father at 78 2low 3increased 4atypical 5hyperplastic Diagnosis Diagnosis Type Effective Dates Health Status Cl inical Service Informant Body mass index [BMI] 21.0-21.9, adult Discharge Diagnosis 08/29/23 Non-Specified Pneumonia Discharge Diagnosis 08/29/23 Procedures Procedure Date Related Diagnosis Body Site [...] stroboscopy 16 11/27/15 Completed Tongue mass 17 06/26/15 Completed X-ray of left foot 18 12/05/14 [...] hernia 16bilateralvocal fold nodules - Vadim Gomez [facility] [place] speech language pathologist 17EXCISED 18Negative study 19OU 20WNL--Repeat in 5 years 21RBBB, EF 55-60 %, No acutre abnl Vital Signs Most recent to oldest [Reference Range]: 1 Height 186.5 cm (08/29/23 10:43 AM) Patient Weight 75.1 kg (08/29/23 10:43 AM) Body Mass Index 21.59 kg/m2 (08/29/23 10:43 AM) Temperature [36.5-37.9 DegC] 36.5 DegC (08/29/23 10:43 AM) Blood Pressure 115/64mmHg (08/29/23 10:43 AM) Cuff Pulse Pressure 51 mmHg (08/29/23 10:43 AM) BP Location # 1 Left Arm (08/29/23 10:43 AM) Social History Social History Type Response Smoking Status Never smoked cigaret layo Sex FCM Outpt Note * MD Israel, Katalina: PERFORM Event Display: FCM Outpt Note Authored Date: [id number] Chief Complaint Pt here for f/u on his pneumonia. States he needs a stronger antibiotic. Also to discuss the peripheral neuropathy caused by the Levofloxacin. History of Present Illness pneumonia: x 2 wks. He took one pill of levaquin the started tingling on legs. h/o neuropathy. was switched to doxy. cough: little better but overall feeling is not better. nonproductive. still feels tired. JUAREZ: mild now. some SOB. had neg covid. Review of Systems No fever/chills. No other respiratory symptoms. No nausea/vomiting. No abdominal pain. No change with bowels. Other systems reviewed and are neg. Physical Exam Vitals & Measurements T:36.5C BP:115/64 SpO2:94% HT:186.5cm WT:75.1kg WT:75.100kg(Dosing) BMI:21.59 PHQ2 Data(Data Documented on:08/29/2023 10:41) Emotional health assessment NEGATIVE General: No acute distress. Nontoxic. Head:Normocephalic, Atraumatic. Neck:Supple, Non-tender, No thyromegaly, No jugular venous distention, No lymphadenopathy Respiratory:Lungs are clear to auscultation, Respirations non-labored, Breath sounds equal GLORIA. Cardiovascular:Normal rate, Regular rhythm, No murmur, Rubs, gallops. Gastrointestinal:Soft, Non-tender, Non-distended, Normal bowel sounds. Musculoskeletal:no pitting edema, no calf tenderness Integumentary:No rashes Neurologic:Alert, Oriented, No focal deficits. Psychiatric:Cooperative, Appropriate mood & affect. Assessment/Plan 1.Pneumonia STATUS: Chronic stable: Chronic uncontrolled: x Acute uncomplicated: Acute illness with systemic symptoms: x Undiagnosed new problems with uncertain prognosis: Chronic illnesses with exacerbation, progression, or side effects of treatment: 1 acute complicated injury: DATA: Review of prior external note(s) from each unique source: Review of the result(s) of each unique test: Ordering of each unique test: x Assessment requiring independent historian(s): GOAL: Resolution PLAN: will do CXR.switch doxy to z tenzin. fluid. rest. Reviewed use of medication and common sideeffects. Advised patient to read the drug insert and discuss with pharmacist further on potential side effects. Patient will call back with any possible side effects. Patient expressed understanding and agrees with plan. call and f/u prn Problem List/Past Medical History Ongoing ADD (Attention Deficit Hyperactivity Disorder, Inattentive Type) Anemia Benign prostatic hypertrophy with outflow obstruction Biceps tendonitis on left Bipolar disease, chronic Cardiomegaly Colitis Conjunctivitis of both eyes Eczema Family history of prostate cancer Flank pain Gastritis GERD H/O chest pain HDL measurement Hiatal hernia High blood cholesterol level Hyperacusis of right ear Ingrown toenail Left arm pain Left shoulder pain Low back pain Mild bipolar II disorder, most recent episode major depressive. Neuropathy of right peroneal nerve Nevus Numbness and tingling of left leg Piriformis syndrome of right side Plantar fasciitis, left Polyp Polyp of colon Prostate cancer screening Prostatitis, chronic Right patellofemoral syndrome Right tibial neuropathy Rt groin pain Seasonal allergic rhinitis Sinusitis Subdeltoid bursitis of left shoulder joint TINNITUS TV (tinea versicolor) Vocal fold nodules Weight disorder Historical Bipolar disorder Flu Piriformis syndrome Tendinopathy of right gluteus medius Procedure/Surgical History Esophagogastroduodenoscopy (08/25/2022)Excision (08/16/2019)Operative procedure EndoscopicSinus surgery (01/11/2019)History of nasal sinus surgery (12/27/2018)CT of abdomen and pelviswithout contrast (12/13/2018)CT of abdomen and pelvis (12/13/2018)Colonoscopy (08/14/2018)Barium swallow (11/24/2017)Upper GI endoscopy (10/26/2017)Echocardiogram (07/14/2017)EKG (07/12/2017)Emergency medical services (07/12/2017)Chest x-ray (07/12/2017)MRI arthrography of knee (03/22/2017)MRI of lumbar spine (01/04/2017)Ultrasound scan of abdominal vessels (09/15/2016)Full sleep study (01/04/2016)Laryngeal stroboscopy (11/27/2015)Tongue mass (06/26/2015)X-ray of left foot (12/05/2014)LASIK (07/27/2014)colonoscopy-[facility] (06/01/2013)Colonoscopy normal (05/27/2013)Stress ECHO-- (12/04/2010)COLONOSCOPY-- WNL (NO POLYPS) (02/24/2009)Cystoscopy (10/27/2006)COLONOSCOPY--Polypectomy (02/24/2006)Nasal Maxillary Sinus Surgery (1992)Hematocoel--Right Side (1985)Hydrocoelectomy RIGHT (1967)BILATERAL Hernia Repair-1966, 1968 (1967)Appendectomy (1965)Benign Cyst removed RIGHT Thorax (1963)PECTUS EXCAVATUM Repair (1955) Medications azithromycin(Azithromycin 5 Day Dose Pack 250 mg oral tablet), 250 mg= 1 tab, PO, Daily doxazosin(doxazosin 8 mg oral tablet), 8 mg= 1 tab, PO, Daily, 3 refills famotidine(famotidine 20 mg oral tablet), 20 mg= 1 tab, PO, bid fluticasone nasal(Flonase 50 mcg/inh nasal spray), 2 spray, each nostril, Daily, 5 refills gabapentin(gabapentin 300 mg oral capsule), 300 mg= 1 cap, PO, tid, 5 refills gabapentin(gabapentin 600 mg oral tablet), 600 mg= 1 tab, PO, bid, 5 refills lamoTRIgine(lamoTRIgine 100 mg oral tablet), 100 mg= 1 tab, PO, Daily lamoTRIgine(LaMICtal 25 mg oral tablet), 25 mg= 1 tab, PO, Daily methylphenidate(Methylphenidate Hydrochloride LA 20 mg/24 hr oral capsule, extended release) mirtazapine(mirtazapine 15 mg oral tablet), 15 mg= 1 tab, PO, qhs pantoprazole(pantoprazole 40 mg oral delayed release tablet), 40 mg= 1 tab, PO, Daily, 3 refills propranolol(propranolol 10 mg oral tablet), See Instructions rosuvastatin(rosuvastatin 5 mg oral tablet), 1 tab, PO, qhs simethicone(Gas-X 80 mg oral tablet, chewable), 80 mg= 1 tab, PO, pc and hs tadalafil(Cialis 5 mg oral tablet), 5 mg= 1 tab, PO, Daily, PRN triamcinolone topical(triamcinolone 0.1% topical cream), 1 appl, topical, bid Allergies Dust FlomaxDysuria and frequency Pollen atorvastatindepression, muscle aches levoFLOXacinneuropathy in legs Social History Smoking Status Never smoked cigarettes Alcohol Use:Current Type:Wine Frequency:Daily Average drinks per episode in last year:1 Employment/School Status:Retired Description:[employer] Previous employment/school:PhD [employer] Highest education:University degree(s) Exercise Duration (average number of minutes):20 Times per week:1-2 times/week Exercise type:Walking Home/Environment Lives with:Spouse Nutrition/Health Type of diet:Regular Substance Abuse - Denies Substance Abuse Tobacco - Denies Tobacco Use Family History Alive and well: Mother, Father, Brother, Daughter and Son. Prostate carcinoma: Father. Health Status Family Member(s) Family Member(s) Relationship: Father, Age: 88 Years, Cause: CHF Immunizations Vaccine Date Status pneumococcal 20-valent conjugate vaccine 07/07/2022 Given SARS-CoV-2 mRNA (tozinameran 5y-11y) 06/16/2022 Recorded influenza virus vaccine, inactivated 06/16/2022 Recorded pneumococcal 23-valent vaccine 03/19/2021 Given SARS-CoV-2 (COVID-19) mRNA-1273 vaccine 01/17/2021 Recorded Comments : 2021-03-19: Historical information-source unspecified SARS-CoV-2 (COVID-19) mRNA-1273 vaccine 12/20/2020 Recorded Comments : 2021-03-19: Historical information-source unspecified tetanus/diphtheria/pertuss, acel (Tdap) 01/02/2019 Given zoster vaccine live 06/22/2017 Recorded zoster vaccine live 06/20/2017 Recorded Comments : 2021-03-19: Historical information-source unspecified zoster vaccine live 12/07/2016 Recorded hepatitis A adult vaccine 11/30/2016 Given zoster vaccine live - Not Given Comments : Contraindicated - Do not give influenza virus vaccine, inactivated 06/26/2016 Recorded influenza virus vaccine, inactivated 06/26/2015 Recorded pneumococcal 23-valent vaccine 10/01/2010 Recorded hepatitis A adult vaccine 07/14/2008 Recorded tetanus/diphtheria/pertuss, acel (Tdap) 07/14/2008 Recorded typhoid vaccine, inactivated 07/14/2008 Recorded hepatitis B adult vaccine 03/14/1998 Recorded hepatitis B adult vaccine 09/13/1997 Recorded hepatitis B adult vaccine 08/14/1997 Recorded Recommendations Health Maintenance Pending(in the next year) OverDue Medicare Annual Wellness Visit due03/19/22and every 1year Adult Influenza Vaccine due03/26/23and every 1year Due Adult COVID-19 Vaccination due08/29/23Unknown Frequency Hepatitis C Screening due08/29/23One-time only Shingles Vaccine due08/29/23One-time only Satisfied(in the past 1 year) Satisfied Body Mass Index on08/29/23.Satisfied by PARVEEN Dubose Paula Lipid Screening on07/20/23.Satisfied by Contributor_system, [employer] Electronic Signature on File Electronically Reviewed/Signed by: Katalina Wood MD Author Signature Dt/Tm:08/29/2023 11:06 AM Department of Family Medicine DJ Patient Care team information Care Team Personnel Name: MD Griffin, Tima Acharya Position: Physician - Family Med Member Role: Lifetime Relationship Address: Address: [address] [place] [address] Name: MD Uribe Michael P Position: Physician - Family Med Member Role: Primary Care Provider Address: Address: [address] [place] [address] Care Team Related Persons Name: MER SANCHEZ Address: home [address], [place] [phone] Name: MER SANCHEZ Address: [facility] Address: home [address], [place] [phone]
[2023-10-29] MEDS: AMIODARONE / D5W 150 MG/100 ML BAG IV ONE (12:50)
[2023-10-29] MEDS: LORazepam 1 MG/1 ML SYR ED Inj Use IV ONE (12:58)
[2023-10-29] MEDS: AMIODARONE / D5W 360 MG/200 ML BAG IV SCH (12:59)
[2023-10-29] MEDS: AMIODARONE 150MG / 100ML D5W IV ONE (13:01)
[2023-10-29] MEDS: AMIODARONE 360MG / 200ML D5W IV ONE (13:01)
[2023-10-29] MEDS: LORazepam 1 MG/1 ML SYR ED Inj Use ONE (13:01)
[2023-10-29 13:05] LABS: iSTAT Creatinine 1.2 mg/dl (0.6-1.3); iSTAT Hemoglobin 15.6 g/dl (14.0-18.0); iSTAT Ionized Calcium 1.2 mmol/l (1.12-1.32)
[2023-10-29 13:06] LABS: Basophils # (auto) 0.04 K/uL (0.00-0.20); Basophils % (auto) 0.7 %; Eosinophils # (auto) 0.09 K/uL (0.00-0.50); Eosinophils % (auto) 1.6 %; Hematocrit (blood only) 44.9 % (42.0-52.0); Hemoglobin 15.2 g/dl (14.0-18.0); Immature Granulocytes # (auto) 0.01 K/uL (0.01-0.20); Immature Granulocytes % (auto) 0.2 %; Lymphocytes # (auto) 2.44 K/uL (1.20-3.40); Lymphocytes % (auto) 42.8 %; Mean Corpuscular Hemoglobin 31.9 pg (25.0-34.0); Mean Corpuscular Hgb Conc 33.9 g/dL (32.0-36.0); Mean Corpuscular Volume 94.1 fL (80.0-100.0); Mean Platelet Volume 9.2 fL (9.4-12.4); Monocytes # (auto) 0.41 K/uL (0.11-0.59); Monocytes % (auto) 7.2 %; Neutrophils # (auto) 2.71 K/uL (1.40-6.50); Neutrophils % (auto) 47.5 %; Platelet Count 188 K/uL (130-400); RDW Coefficient of Variation 13.7 % (11.5-14.5); Red Blood Count 4.77 M/uL (4.70-6.10)
[2023-10-29] MEDS: ASPIRIN 81 MG CHEW PO STA (13:21)
[2023-10-29 13:22] LABS: BUN Creatinine Ratio 21.7 (10-20); Calcium 9.5 mg/dl (8.6-10.3); Creatinine Clr Calc Pharmacy 69.7 ml/min; Est GFR (African American) 75.9 ml/min; Est GFR (Non-African American) 65.5 ml/min
[2023-10-29 13:29] LABS: Troponin I High Sensitivity 5.8 pg/ml (0-20)
[2023-10-29 13:35] LABS: D Dimer 350 ug/L FEU (0-500); Partial Thromboplastin Ratio 1.1; Partial Thromboplastin Time 31 Seconds (21-31); Prothrombin Time 10.9 Seconds (9.0-12.0)
--- NOTE | 2023-10-29 13:38 | Emergency Department Note ---
History of Present Illness General Chief Complaint: Tachycardia Stated Complaint: TACHYCARDIA, CHEST PAIN Time Seen by Provider: 10/29/23 12:43 History of Present Illness Provider Complaint: + palpitations Onset (ago): 1 day(s) Current Pain Intensity: 0 Context: + occurred during rest Arrhythmia history: no on anti-coagulants Associated symptoms: + near-syncope and + other (Diarrhea); no chest pain, no shortness of breath, no syncope, no nausea, no vomiting, no anxiety, no diaphoresis, no cough or no paresthesias Home Medications Medication Instructions Recorded Confirmed Type cetirizine 10 mg tablet (Zyrtec) 10 mg PO QAM 12/28/18 10/29/23 History docusate sodium 100 mg tablet 100 mg PO BID 12/28/18 10/29/23 History doxazosin 8 mg tablet 8 mg PO HS 12/28/18 10/29/23 History lamotrigine 200 mg tablet 100 mg PO BID 12/28/18 10/29/23 History (Lamictal) methylphenidate HCl 10 mg tablet 10 mg PO DAILY PRN NEEDED 12/28/18 10/29/23 History (Ritalin) mirtazapine 15 mg tablet 15 mg PO HS 12/28/18 10/29/23 History rosuvastatin 5 mg tablet (Crestor) 5 mg PO HS 12/28/18 10/29/23 History gabapentin 300 mg capsule See Rx Instructions .Route .COMPLEX 12/11/20 10/29/23 History fluticasone propionate 50 1 spray intranasal BID #15.8 mL 01/31/23 10/29/23 Rx mcg/actuation nasal spray,suspension (Flonase Allergy Relief) gabapentin 600 mg tablet 600 mg PO BID 10/29/23 10/29/23 History pantoprazole 40 mg tablet,delayed 40 mg PO DAILY 10/29/23 10/29/23 History release propranolol 20 mg tablet 20 mg PO BID PRN Other 10/29/23 10/29/23 History Allergies Allergy/AdvReac Type Severity Reaction Status Date / Time No Known Allergies Allergy NONE Verified 12/11/20 05:16 Past Med/Surg History Medical History (Updated 10/29/23 @ 14:13 by Brock Pinzon MD) BPH (benign prostatic hyperplasia) GERD (gastroesophageal reflux disease) Anemia MILD Attention deficit disorder (ADD) Bipolar disorder Depression Anxiety Hyperlipidemia Sleep apnea NO DEVICE Environmental allergies Surgical History S/P repair of hydrocele History of surgery AN -pectus excavatum REPAIR History of esophagogastroduodenoscopy (EGD) History of colonoscopy History of herniorrhaphy History of endoscopic sinus surgery History of tonsillectomy History of adenoidectomy Family History Other No pertinent family history in first degree relatives Social History Smoking Status: Never smoker Second Hand Exposure: No; Do You Dip or Chew Tobacco: No; Hx Substance Use: No Preferred Language: Italian Communication Ability: Effective Olive Pitter Required: No Beliefs That Will Affect Care: None Current Living Situation: Spouse Feels Safe at Home: Yes Assistive Devices: Glasses Physical Exam 2 Vital Signs: Vital Signs - 24 hr 10/29/23 12:38 10/29/23 12:39 10/29/23 12:45 Temperature 36.5 C Temperature Source Temporal Artery Sc an Pulse Rate 187 H 184 H Pulse Rate [Apical ] 142 H Pulse Rate from Sp O2 Sensor Pulse Rhythm [Apic al] Regular Pulse Strength [Ap ical] Respiratory Rate 19 Respiratory Effort / Characteristics Respiratory Depth Respiratory Patter n Blood Pressure 119/67 Blood Pressure [Ri ght Arm] Blood Pressure Gertrudis n 84 Blood Pressure Gertrudis n [Right Arm] Blood Pressure Pos ition [Right Arm] Pulse Oximetry 100 Oxygen Delivery Me thod Room Air Sepsis Recent Feve r Within 48 Hours No Sepsis New/Unexpla ined Change in Men jeff Status N/A Sepsis Action Take n by Nursing No Action Required 10/29/23 12:48 10/29/23 12:48 10/29/23 12:50 Temperature Temperature Source Pulse Rate 183 H 182 H Pulse Rate [Apical ] Pulse Rate from Sp O2 Sensor 183 H 180 H Pulse Rhythm [Apic al] Pulse Strength [Ap ical] Respiratory Rate Respiratory Effort / Characteristics Respiratory Depth Respiratory Patter n Blood Pressure 136/91 Blood Pressure [Ri ght Arm] Blood Pressure Gertrudis n 116 Blood Pressure Gertrudis n [Right Arm] Blood Pressure Pos ition [Right Arm] Pulse Oximetry 98 99 Oxygen Delivery Me thod Room Air Room Air Sepsis Recent Feve r Within 48 Hours Sepsis New/Unexpla ined Change in Men jeff Status Sepsis Action Take n by Nursing 10/29/23 12:50 10/29/23 12:51 10/29/23 12:54 Temperature Temperature Source Pulse Rate 184 H Pulse Rate [Apical ] Pulse Rate from Sp O2 Sensor Pulse Rhythm [Apic al] Pulse Strength [Ap ical] Respiratory Rate Respiratory Effort / Characteristics Respiratory Depth Respiratory Patter n Blood Pressure 124/92 Blood Pressure [Ri ght Arm] Blood Pressure Gertrudis n 112 Blood Pressure Gertrudis n [Right Arm] Blood Pressure Pos ition [Right Arm] Pulse Oximetry 95 Oxygen Delivery Me thod Room Air Sepsis Recent Feve r Within 48 Hours Sepsis New/Unexpla ined Change in Men jeff Status Sepsis Action Take n by Nursing 10/29/23 12:54 10/29/23 12:54 10/29/23 12:55 Temperature Temperature Source Pulse Rate 146 H Pulse Rate [Apical ] 141 H Pulse Rate from Sp O2 Sensor Pulse Rhythm [Apic al] Regular Pulse Strength [Ap ical] Normal Respiratory Rate 95 H Respiratory Effort / Characteristics Non-Labored Sponta neous Respiratory Depth Normal Respiratory Patter n Regular Blood Pressure Blood Pressure [Ri ght Arm] 124/92 Blood Pressure Gertrudis n Blood Pressure Gertrudis n [Right Arm] 102 Blood Pressure Pos ition [Right Arm] Semi-fowlers Pulse Oximetry 95 97 Oxygen Delivery Me thod Room Air Room Air Sepsis Recent Feve r Within 48 Hours Sepsis New/Unexpla ined Change in Men jeff Status Sepsis Action Take n by Nursing 10/29/23 12:56 10/29/23 12:56 10/29/23 13:03 Temperature Temperature Source Pulse Rate 132 H 105 H Pulse Rate [Apical ] Pulse Rate from Sp O2 Sensor 89 90 Pulse Rhythm [Apic al] Pulse Strength [Ap ical] Respiratory Rate 13 Respiratory Effort / Characteristics Respiratory Depth Respiratory Patter n Blood Pressure 141/83 H Blood Pressure [Ri ght Arm] Blood Pressure Gertrudis n 92 Blood Pressure Gertrudis n [Right Arm] Blood Pressure Pos ition [Right Arm] Pulse Oximetry 93 98 Oxygen Delivery Me thod Sepsis Recent Feve r Within 48 Hours Sepsis New/Unexpla ined Change in Men jeff Status Sepsis Action Take n by Nursing 10/29/23 13:04 10/29/23 13:05 10/29/23 13:10 Temperature Temperature Source Pulse Rate 113 H 113 H 113 H Pulse Rate [Apical ] Pulse Rate from Sp O2 Sensor 89 80 89 Pulse Rhythm [Apic al] Pulse Strength [Ap ical] Respiratory Rate 20 23 20 Respiratory Effort / Characteristics Respiratory Depth Respiratory Patter n Blood Pressure 139/93 141/82 H 144/99 H Blood Pressure [Ri ght Arm] Blood Pressure Gertrudis n 108 101 114 Blood Pressure Gertrudis n [Right Arm] Blood Pressure Pos ition [Right Arm] Pulse Oximetry 98 97 96 Oxygen Delivery Me thod Room Air Sepsis Recent Feve r Within 48 Hours Sepsis New/Unexpla ined Change in Men jeff Status Sepsis Action Take n by Nursing 10/29/23 13:15 10/29/23 13:20 10/29/23 13:25 Temperature Temperature Source Pulse Rate 120 H 103 H 107 H Pulse Rate [Apical ] Pulse Rate from Sp O2 Sensor 93 H 80 Pulse Rhythm [Apic al] Pulse Strength [Ap ical] Respiratory Rate 17 12 14 Respiratory Effort / Characteristics Respiratory Depth Respiratory Patter n Blood Pressure 119/82 114/87 137/84 Blood Pressure [Ri ght Arm] Blood Pressure Gertrudis n 94 96 101 Blood Pressure Gertrudis n [Right Arm] Blood Pressure Pos ition [Right Arm] Pulse Oximetry 96 95 Oxygen Delivery Me thod Room Air Room Air Sepsis Recent Feve r Within 48 Hours Sepsis New/Unexpla ined Change in Men jeff Status Sepsis Action Take n by Nursing 10/29/23 13:30 Temperature Temperature Source Pulse Rate Pulse Rate [Apical ] 105 H Pulse Rate from Sp O2 Sensor Pulse Rhythm [Apic al] Regular Pulse Strength [Ap ical] Normal Respiratory Rate 14 Respiratory Effort / Characteristics Non-Labored Sponta neous Respiratory Depth Normal Respiratory Patter n Regular Blood Pressure Blood Pressure [Ri ght Arm] 130/89 Blood Pressure Gertrudis n Blood Pressure Gertrudis n [Right Arm] 102 Blood Pressure Pos ition [Right Arm] Semi-fowlers Pulse Oximetry 98 Oxygen Delivery Me thod Room Air Sepsis Recent Feve r Within 48 Hours Sepsis New/Unexpla ined Change in Men jeff Status Sepsis Action Take n by Nursing Physical Exam: Physical Exam GENERAL: oriented to person, place, and time. appears well-developed and well- nourished. HENT: Exam performed. - Head: Normocephalic and atraumatic. EYES: Conjunctivae and EOM are normal. Right eye exhibits no discharge. Left eye exhibits no discharge. No scleral icterus. NECK: Normal range of motion. Neck supple. No JVD present. CV: Tachycardic rate, regular rhythm, normal heart sounds and intact distal pulses. There is no peripheral edema. Palpable radial pulses bue. PULM/CHEST: Effort normal and breath sounds normal. No respiratory distress. No stridor. no wheezes. no rales. ABD: The abdomen is soft. There is no tenderness. NEURO: Motor and sensation grossly intact. SKIN: Skin is warm and dry. He is not diaphoretic. PSYCH: normal mood and affect. Behavior is normal. Judgment and thought content normal. Course Course 1243: The patient was evaluated in room B1. A complete history and physical exam was performed Cardiac monitoring: An order was placed for continuous cardiac monitoring. The monitor shows a rate of 180 with Vtach rhythm interpreted by me Patient appears to be in a wide-complex tachycardia which appears monomorphic appearing like V. tach in the 180s. Pads were applied the patient large-bore IV access was obtained and amiodarone 150 mg bolus over 10 minutes was started. 1255: Patient appears to be having his ventricular rate improved and QRS complexes narrowing on the surveillance monitor. 1300: Patient appears to be in A-fib with a normal ventricular rate after the amiodarone bolus had infused. Patient will be started on amiodarone drip. 1350: Patient appears to be in sinus rhythm on the monitor. EKG is frequent x- ray shows patient is in a sinus arrhythmia. 1411: Vital signs stable on amiodarone drip. Labs within normal limits. [facility] Trin[facility] notified. [id number] score 1 aspirin given to the patient. Administered Medications Amiodarone HCl/Dextrose (Nexterone / D5w) 360 mg in 200 mls @ 33.333 mls/hr IV .Q6H [facility] Stop: 10/29/23 18:59 Last Admin: 10/29/23 12:59 Dose: 1 mg/min, 33.3 mls/hr Documented By: MEREDITH Co-signed By: DONNA Discontinued Medications Amiodarone HCl/Dextrose (Amiodarone 360mg / 200ml D5w) Confirm Administered Dose 360 mg IV .[facility] Stop: 10/29/23 12:47 Last Admin: 10/29/23 13:01 Dose: Not Given Documented By: MEREDITH Amiodarone HCl/Dextrose (Amiodarone 150mg / 100ml D5w) Confirm Administered Dose 150 mg IV .[facility] ONE Stop: 10/29/23 12:47 Last Admin: 10/29/23 13:01 Dose: Not Given Documented By: MEREDITH Aspirin (Aspirin 81 Mg Chew) 324 mg PO NOW STA Stop: 10/29/23 13:16 Last Admin: 10/29/23 13:21 Dose: 324 mg Documented By: MEREDITH Amiodarone HCl/Dextrose (Nexterone / D5w) 150 mg in 100 mls @ 600 mls/hr IV NOW ONE Stop: 10/29/23 12:59 Last Infusion: 10/29/23 13:01 Dose: Infused Documented By: MEREDITH Co-signed By: DONNA Admin: 10/29/23 12:50 Dose: 600 mls/hr Documented By: MEREDITH Co-signed By: DONNA Lorazepam (Lorazepam 1 Mg/1 Ml Syr Ed Inj Use) Confirm Administered Dose 1 mg .ROUTE .STK-MED ONE Stop: 10/29/23 12:52 Last Admin: 10/29/23 13:01 Dose: Not Given Documented By: MEREDITH Lorazepam (Lorazepam 1 Mg/1 Ml Syr Ed Inj Use) 1 mg IV NOW ONE Stop: 10/29/23 13:01 Last Admin: 10/29/23 12:58 Dose: 1 mg Documented By: MEREDITH Medical Decision Making Laboratory Data Attestation: I reviewed the patient's lab results. 10/29/23 12:47 10/29/23 12:47 Lab Results 10/29/23 10/29/23 10/29/23 Range/Units 12:47 12:47 12:53 WBC 5.70 (4.8-10.8) K/ul RBC 4.77 (4.70-6.10) M/uL Hgb 15.2 (14.0-18.0) g/dl POC Hgb 15.6 (14.0-18.0) g/dl Hct 44.9 (42.0-52.0) % POC Hct 46 (42-52) % MCV 94.1 (80.0-100.0) fL MCH 31.9 (25.0-34.0) pg MCHC 33.9 (32.0-36.0) g/dL RDW Std Deviation 48.0 H (36.4-46.3) fL RDW Coeff of Maria Del Carmen 13.7 (11.5-14.5) % Plt Count 188 (130-400) K/uL MPV 9.2 L (9.4-12.4) fL Immature Gran % (Auto) 0.2 % Neut % (Auto) 47.5 % Lymph % (Auto) 42.8 % Stevens % (Auto) 7.2 % Eos % (Auto) 1.6 % Baso % (Auto) 0.7 % Neut # (Auto) 2.71 (1.40-6.50) K/uL Lymph # (Auto) 2.44 (1.20-3.40) K/uL Stevens # (Auto) 0.41 (0.11-0.59) K/uL Eos # (Auto) 0.09 (0.00-0.50) K/uL Baso # (Auto) 0.04 (0.00-0.20) K/uL Immature Gran # (Auto) 0.01 (0.01-0.20) K/uL PT 10.9 (9.0-12.0) Seconds INR 1.0 (0.9-1.1) APTT 31 (21-31) Seconds PTT Ratio 1.1 D-Dimer 350 (0-500) ug/L FEU POC Sodium 140 (135-144) mmol/L Sodium 138 (136-145) mmol/L POC Potassium 4.0 (3.3-5.0) mmol/L Potassium 4.0 (3.5-5.1) mmol/L POC Chloride 100 L (101-112) mmol/L Chloride 101 (98-107) mmol/L Carbon Dioxide 31 (21-32) mmol/L POC Total CO2 29 (24-31) mmol/L Anion Gap 6 (3-11) POC Anion Gap 16.0 (16-25) mmol/L POC BUN 25 H (7-18) mg/dl BUN 25 H (6-23) mg/dl Creatinine 1.15 (0.6-1.4) mg/dl POC Creatinine 1.2 (0.6-1.3) mg/dl Est Cr Clr Drug Dosing 69.7 ml/min Est GFR ( Amer) 75.9 ml/min Est GFR (Non-Af Amer) 65.5 ml/min BUN/Creatinine Ratio 21.7 H (10-20) Glucose 110 H (70-99(Fasting)) mg/dl POC Glucose (other) 115 H (70-99) mg/dl Calcium 9.5 (8.6-10.3) mg/dl POC Ioniz Calcium Mekhi 1.20 (1.12-1.32) mmol/l Magnesium 2.0 (1.7-2.4) mg/dl Troponin I High Sens 5.8 Cancelled (0-20) pg/ml Lipase 15 (11-82) U/L Adenovirus (PCR) (NotDetected) B. pertussis DNA (PCR) (NotDetected) B.parapertussis DNA PCR (NotDetected) C. pneumoniae DNA (PCR) (NotDetected) Coronavirus OC43 (PCR) (NotDetected) Coronavirus HKU1 (PCR) (NotDetected) Coronavirus 229E (PCR) (NotDetected) SARS-CoV-2 (PCR) (NotDetected) Coronavirus NL63 (PCR) (NotDetected) Human Metapneumovir PCR (NotDetected) Influenza Type A (PCR) (NotDetected) Influenza Type B (PCR) (NotDetected) M. pneumoniae (PCR) (NotDetected) Parainfluenza 1 (PCR) (NotDetected) Parainfluenza 2 (PCR) (NotDetected) Parainfluenza 3 (PCR) (NotDetected) Parainfluenza 4 (PCR) (NotDetected) RSV (PCR) (NotDetected) Entero/Rhino (PCR) (NotDetected) 10/29/23 Range/Units 12:55 WBC (4.8-10.8) K/ul RBC (4.70-6.10) M/uL Hgb (14.0-18.0) g/dl POC Hgb (14.0-18.0) g/dl Hct (42.0-52.0) % POC Hct (42-52) % MCV (80.0-100.0) fL MCH (25.0-34.0) pg MCHC (32.0-36.0) g/dL RDW Std Deviation (36.4-46.3) fL RDW Coeff of Maria Del Carmen (11.5-14.5) % Plt Count (130-400) K/uL MPV (9.4-12.4) fL Immature Gran % (Auto) % Neut % (Auto) % Lymph % (Auto) % Stevens % (Auto) % Eos % (Auto) % Baso % (Auto) % Neut # (Auto) (1.40-6.50) K/uL Lymph # (Auto) (1.20-3.40) K/uL Stevens # (Auto) (0.11-0.59) K/uL Eos # (Auto) (0.00-0.50) K/uL Baso # (Auto) (0.00-0.20) K/uL Immature Gran # (Auto) (0.01-0.20) K/uL PT (9.0-12.0) Seconds INR (0.9-1.1) APTT (21-31) Seconds PTT Ratio D-Dimer (0-500) ug/L FEU POC Sodium (135-144) mmol/L Sodium (136-145) mmol/L POC Potassium (3.3-5.0) mmol/L Potassium (3.5-5.1) mmol/L POC Chloride (101-112) mmol/L Chloride (98-107) mmol/L Carbon Dioxide (21-32) mmol/L POC Total CO2 (24-31) mmol/L Anion Gap (3-11) POC Anion Gap (16-25) mmol/L POC BUN (7-18) mg/dl BUN (6-23) mg/dl Creatinine (0.6-1.4) mg/dl POC Creatinine (0.6-1.3) mg/dl Est Cr Clr Drug Dosing ml/min Est GFR ( Amer) ml/min Est GFR (Non-Af Amer) ml/min BUN/Creatinine Ratio (10-20) Glucose (70-99(Fasting)) mg/dl POC Glucose (other) (70-99) mg/dl Calcium (8.6-10.3) mg/dl POC Ioniz Calcium Mekhi (1.12-1.32) mmol/l Magnesium (1.7-2.4) mg/dl Troponin I High Sens (0-20) pg/ml Lipase (11-82) U/L Adenovirus (PCR) Not Detected (NotDetected) B. pertussis DNA (PCR) Not Detected (NotDetected) B.parapertussis DNA PCR Not Detected (NotDetected) C. pneumoniae DNA (PCR) Not Detected (NotDetected) Coronavirus OC43 (PCR) Not Detected (NotDetected) Coronavirus HKU1 (PCR) Not Detected (NotDetected) Coronavirus 229E (PCR) Not Detected (NotDetected) SARS-CoV-2 (PCR) Not Detected (NotDetected) Coronavirus NL63 (PCR) Not Detected (NotDetected) Human Metapneumovir PCR Not Detected (NotDetected) Influenza Type A (PCR) Not Detected (NotDetected) Influenza Type B (PCR) Not Detected (NotDetected) M. pneumoniae (PCR) Not Detected (NotDetected) Parainfluenza 1 (PCR) Not Detected (NotDetected) Parainfluenza 2 (PCR) Not Detected (NotDetected) Parainfluenza 3 (PCR) Not Detected (NotDetected) Parainfluenza 4 (PCR) Not Detected (NotDetected) RSV (PCR) Not Detected (NotDetected) Entero/Rhino (PCR) Not Detected (NotDetected) Imaging Data Attestation: I personally reviewed and interpreted this imaging study as follows: My Impression: Chest x-ray negative. Airway clear. No pneumothorax. No consolidation. No cardiomegaly or cephalization.. No free air under the diaphragm. No fractures of the skeletal structures. Radiologist's Impression: Chest X-Ray 10/29/23 12:49 XR chest 1V portable HISTORY: 68 years-old Male Chest pain, nonspecific COMPARISON: 08/29/2023 TECHNIQUE: AP view of the chest FINDINGS: Cardiomediastinal and hilar silhouettes are within normal limits. No pneumothorax, pleural effusion or overt pulmonary edema. Bones of the chest appear grossly intact. Unchanged upper lateral chest wall deformity. Degenerative changes of the shoulders and spine. IMPRESSION: No acute process. ACT 112: Negative or not required by law. The above report was generated using voice recognition software. It may contain grammatical, syntax or spelling errors. Electronically signed by: Srikanth Tillman M.D. 10/29/2023 1:59 PM ECG Data Attestation: I personally reviewed and interpreted this ECG as follows: Additional Comments: EKG #1 at 1245: V. tach with a rate of 184. QRS 148 QTc 469. EKG #2 at 1255 with amiodarone bolus infusing: Atrial fibrillation with a rate of 129. QRS [address] elevation or ST depression. EKG #3 at 1259 after amiodarone bolus done infusing: Atrial fibrillation with a rate of 110. QRS [address] elevation or ST depression. EKG #4 at 1350 while on the amiodarone drip: Sinus arrhythmia with a rate of 97. OH QRS and QTc intervals within normal limits. No ST elevation or ST depression. MDM Narrative 1243: The patient was evaluated in room B1. A complete history and physical exam was performed Cardiac monitoring: An order was placed for continuous cardiac monitoring. The monitor shows a rate of 180 with Vtach rhythm interpreted by me Patient appears to be in a wide-complex tachycardia which appears monomorphic appearing like V. tach in the 180s. Pads were applied the patient large-bore IV access was obtained and amiodarone 150 mg bolus over 10 minutes was started. 1255: Patient appears to be having his ventricular rate improved and QRS complexes narrowing on the surveillance monitor. 1300: Patient appears to be in A-fib with a normal ventricular rate after the amiodarone bolus had infused. Patient will be started on amiodarone drip. 1350: Patient appears to be in sinus rhythm on the monitor. EKG is frequent x- ray shows patient is in a sinus arrhythmia. 1411: Vital signs stable on amiodarone drip. Labs within normal limits. [facility] Trinh notified. [id number] score 1 aspirin given to the patient. Impression & Plan Ventricular tachycardia, Atrial fibrillation Critical Care Time Critical Care Time: Yes Total Critical Care Time: 38 I have personally spent greater than 38 minutes of critical care time in the direct management of this patient. This includes bedside care, interpretation of diagnostic studies, and testing, discussion with consultants, patient, and family members, and other required patient management activities. This 38 minutes is in excess of all separately billable procedures. Discharge Plan Visit Data Chief Complaint: Tachycardia Stated Complaint: TACHYCARDIA, CHEST PAIN ED Provider: Brock Pinzon Discharge Problem: Ventricular tachycardia, Atrial fibrillation Patient Disposition: Admitted As Inpatient Forms Stand Alone Forms: [facility] Prescriptions Prescriptions: No Action fluticasone propionate [Flonase Allergy Relief] 50 mcg/actuation spray,suspension 1 spray intranasal BID Qty: 15.8 2RF lamotrigine [Lamictal] 200 mg Tablet 100 mg PO BID cetirizine [Zyrtec] 10 mg Tablet 10 mg PO QAM Rx Instructions: OTC not able to verify with pharmacy 10/29/23 methylphenidate HCl [Ritalin] 10 mg Tablet 10 mg PO DAILY PRN (Reason: NEEDED) Rx Instructions: not on file with pharmacy 10/29/23 doxazosin 8 mg Tablet 8 mg PO HS Rx Instructions: filled jul 2023 mirtazapine 15 mg Tablet 15 mg PO HS docusate sodium 100 mg Tablet 100 mg PO BID Rx Instructions: OTC not able to verify with pharmacy 10/29/23 rosuvastatin [Crestor] 5 mg Tablet 5 mg PO HS gabapentin 300 mg capsule See Rx Instructions .ROUTE .COMPLEX Rx Instructions: 5 caps daily- 300 MG CAP; TAKE 900 MG QAM AND MID DAY, THEN TAKE 1200 MG AT HS. gabapentin 600 mg tablet 600 mg PO BID pantoprazole 40 mg tablet,delayed release (DR/EC) 40 mg PO DAILY propranolol 20 mg tablet 20 mg PO BID PRN (Reason: Other) Referrals Referrals: Marty Uribe [Primary Care Provider] -
[2023-10-29 13:58] LABS: Adenovirus PCR Not Detected (NotDetected); Bordetella parapertussis PCR Not Detected (NotDetected); Bordetella pertussis PCR Not Detected (NotDetected); Chlamydia pneumoniae PCR Not Detected (NotDetected); Coronavirus 229E PCR Not Detected (NotDetected); Coronavirus CoV-2 (COVID19)PCR Not Detected (NotDetected); Coronavirus HKU1 PCR Not Detected (NotDetected); Coronavirus NL63 PCR Not Detected (NotDetected); Coronavirus OC43PCR Not Detected (NotDetected); Human Metapneumovirus PCR Not Detected (NotDetected); Influenza A PCR Not Detected (NotDetected); Influenza B PCR Not Detected (NotDetected); Mycoplasma pneumoniae PCR Not Detected (NotDetected); Parainfluenza Virus 1 PCR Not Detected (NotDetected); Parainfluenza Virus 2 PCR Not Detected (NotDetected); Parainfluenza Virus 3 PCR Not Detected (NotDetected); Parainfluenza Virus 4 PCR Not Detected (NotDetected); Respiratory Syncytial VirusPCR Not Detected (NotDetected); Rhinovirus/Enterovirus PCR Not Detected (NotDetected)
--- NOTE | 2023-10-29 14:00 | XRay Report ---
XR chest 1V portable HISTORY: 68 years-old Male Chest pain, nonspecific COMPARISON: 08/29/2023 TECHNIQUE: AP view of the chest FINDINGS: Cardiomediastinal and hilar silhouettes are within normal limits. No pneumothorax, pleural effusion o r overt pulmonary edema. Bones of the chest appear grossly intact. Unchanged upper lateral chest wall deformity. Degenerative changes of the shoulders and spine. IMPRESSION: No acute process. ACT 112: Negative or not required by law. The above report was generated using voice recognition software. It may contain grammatical, syntax o r spelling errors. Electronically signed by: Srikanth Tillman M.D. 10/29/2023 1:59 PM
--- NOTE | 2023-10-29 14:35 | History & Physical Report ---
Date of Service October 29, 2023 Assessment & Plan (1) Wide-complex tachycardia: Plan: ? A-fib with RVR. Wide-complex tachycardia due to underlying right bundle branch block Patient presented with lightheadedness/dizziness/presyncope without chest pain on awakening 10/29/2023; no prior cardiac history or similar symptoms. Heart rate 180 by Apple Watch. No history of afib/flutter On arrival to ER wide complex tachycardia, rate 184, QRS 148. Patient was loaded with amiodarone and started on amnio drip, was also given aspirin. Had progressive improvement in his heart rate serial EKGs? Atrial fibrillation once slowed down to 130s and then subsequently sinus tachycardia with incomplete right bundle branch block. No pain at time of bedside reassessment Last baseline EKG from 07/13/2017 was normal sinus rhythm with a right bundle branch block, nonspecific anterior ST changes. QRS 110, QTc 446, IL 188 at that time Last dobutamine stress echo 06/2017 (performed for ER visit for chest pain w Jaw pain) --> with EF 65 to 70%, LV SF normal, no inducible chest pain/EKG changes or wall motion abnormalities - Suspect underlying afib RVR now controlled. Metoprolol 25 mg twice daily started, if rate normalizes discontinue amiodarone drip. [id number] 1. [Discussed risks/benefits of afib stroke prophylaxis. Pt agreeable to anticoagulation. Started on heparin gtt on admit with transition to eliquis 10/30 at 9am if doing well Potassium 4.0, magnesium is 2.0. Bio fire is negative Slight volume contraction on exam, no NANO Cardiology consulted History of DURAN, had endoscopic sinus surgery and since has not required CPAP to his knowledge. Nocturnal repeat pending. (2) Bipolar disorder: Plan: Continue mirtazapine nightly, lamotrigine 100 mg p.o. twice daily Patient also uses propranolol 20 mg p.o. twice daily and as needed for stage IV right, did not take this today (3) Hyperlipidemia: Plan: Continue rosuvastatin 5 mg (4) Attention deficit disorder (ADD): Plan: Methylphenidate held due to presenting tachycardia (5) BPH (benign prostatic hyperplasia): Plan: Continue doxazosin (6) GERD (gastroesophageal reflux disease): Plan: Continue PPI (7) Sleep apnea: Plan: - had endoscopic sinus surgery and since has not required CPAP to his knowledge. - usually wakes up rested, still snores. - Will check overnight pulseox for apneic/hypoxic events Plan DVT PPx: anticoagulated CODE: FUll Dispo: PCU Diet: HH History of Present Illness Primary Care Provider: Marty Jojo Carney is a 68-year-old male with past medical history of bipolar disorder, hyperlipidemia, who presents to the ER with tachycardia and heart rate over 180. Rommel reports that he felt normal when going to bed last night, upon waking up this morning getting a bed he felt extremely fatigued. He continued to take his morning medicines which include gabapentin, Ritalin, and lamotrigine. He still felt very tired and lightheaded and laid down on the couch for period of time to rest. He again tried to get back up after this but it felt extremely lightheaded and fatigued again. He went to the bathroom and had a long fairly loose bowel movement, upon standing he again felt lightheaded so he checked his Apple Watch which showed a heart rate of 185. At that time he had a feeling of reflux which was similar to prior and usually presents as a tongue/jaw burning sensation and did have tomatoes last night so thought he might of had GERD but was concerned about his heart racing and presented to the ER. He reports he did not have chest pain or chest pressure. He did have some discomfort underneath/below his left lower ribs similar to prior colitis pain but feels this was in his abdomen more than his chest and has resolved. He felt lightheaded and short of breath during the episode, was not sweating. Reports he did not have syncope at any point. No cough. Feels improved at time of bedside assessment with no pain. Denies fevers. Notes he does get cold easily but has not had chills. He reports he did have colitis recently which was treated with antibiotics. He reports last week he did have a follow-up EGD/colonoscopy which was normal with no concerning findings other than mild gastritis He denies prior cardiac history. Has no history of MD or heart disease. He drinks alcohol rarely and socially and does not use tobacco products. He does not have a history of diabetes or hypertension, he notes his blood pressure tends to run slightly low. Family history of cardiac disease in his father who had multivessel CAD in his late 60s. Denies medical problems in his mother. Medical History: Reviewed Medications: Reviewed Surgical History: Reviewed Family history: Reviewed Allergies: Reviewed Social History: No tobacco, rare social alcohol use. No recreational drug Code Status: Full code Allergies Allergy/AdvReac Type Severity Reaction Status Date / Time No Known Allergies Allergy NONE Verified 12/11/20 05:16 Home Medications Medication Instructions Recorded Confirmed Type cetirizine 10 mg tablet (Zyrtec) 10 mg PO QAM 12/28/18 10/29/23 History docusate sodium 100 mg tablet 100 mg PO BID 12/28/18 10/29/23 History doxazosin 8 mg tablet 8 mg PO HS 12/28/18 10/29/23 History lamotrigine 200 mg tablet 100 mg PO BID 12/28/18 10/29/23 History (Lamictal) methylphenidate HCl 10 mg tablet 10 mg PO DAILY PRN NEEDED 12/28/18 10/29/23 History (Ritalin) mirtazapine 15 mg tablet 15 mg PO HS 12/28/18 10/29/23 History rosuvastatin 5 mg tablet (Crestor) 5 mg PO HS 12/28/18 10/29/23 History gabapentin 300 mg capsule See Rx Instructions .Route .COMPLEX 12/11/20 10/29/23 History fluticasone propionate 50 1 spray intranasal BID #15.8 mL 01/31/23 10/29/23 Rx mcg/actuation nasal spray,suspension (Flonase Allergy Relief) gabapentin 600 mg tablet 600 mg PO BID 10/29/23 10/29/23 History pantoprazole 40 mg tablet,delayed 40 mg PO DAILY 10/29/23 10/29/23 History release propranolol 20 mg tablet 20 mg PO BID PRN Other 10/29/23 10/29/23 History Past Med/Surg History Medical History (Updated 10/29/23 @ 14:29 by Darien Trinh MD) BPH (benign prostatic hyperplasia) GERD (gastroesophageal reflux disease) Anemia MILD Attention deficit disorder (ADD) Bipolar disorder Depression Anxiety Hyperlipidemia Sleep apnea NO DEVICE Environmental allergies Surgical History S/P repair of hydrocele History of surgery AN INFANT-pectus excavatum REPAIR History of esophagogastroduodenoscopy (EGD) History of colonoscopy History of herniorrhaphy History of endoscopic sinus surgery History of tonsillectomy History of adenoidectomy Family History Other No pertinent family history in first degree relatives Social History Smoking Status: Never smoker Second Hand Exposure: No; Do You Dip or Chew Tobacco: No; Hx Substance Use: No Preferred Language: Nauruan Communication Ability: Effective Disability Insurance Claim Examiner Required: No Beliefs That Will Affect Care: None Current Living Situation: Spouse Other Information That Helps Us Care for You: No Feels Safe at Home: Yes Safety Concerns: Feels Safe At This Time Assistive Devices: Glasses Physical Exam Physical Exam: General: A&Ox3. NAD. Cooperative. HEENT: Atraumatic, normocephalic. Vision/hearing intact without deficit. Pupils equal and reactive to light Pulm: CTAB A&P. -wheezes, -rales, -rhonchi. Symmetrical chest rise. No increased work of breathing. No respiratory distress. Cardiac: tachycardic, irregular, -mrg. Radial pulses intact and symmetrical. Abdominal: Trace left upper quadrant tenderness to palpation without rebound/guarding. No rib pain. Otherwise nontender, nondistended, soft. BS present. Ext: warm, dry, no edema Results & Data Results & Data Vital Signs (Past 12 Hours) Vital Signs Temp Pulse Pulse Resp BP BP Pulse Ox 10/29/23 13:30 105 H 14 130/89 98 10/29/23 13:25 107 H 14 137/84 95 10/29/23 13:20 103 H 12 114/87 96 10/29/23 13:15 120 H 17 119/82 10/29/23 13:10 113 H 20 144/99 H 96 10/29/23 13:05 113 H 23 141/82 H 97 10/29/23 13:04 113 H 20 139/93 98 10/29/23 13:03 105 H 13 98 10/29/23 12:56 132 H 93 10/29/23 12:56 141/83 H 10/29/23 12:55 146 H 10/29/23 12:54 97 10/29/23 12:54 141 H 95 H 124/92 95 10/29/23 12:54 95 10/29/23 12:51 184 H 10/29/23 12:50 124/92 10/29/23 12:50 182 H 99 10/29/23 12:48 136/91 10/29/23 12:48 183 H 98 10/29/23 12:45 184 H 10/29/23 12:39 36.5 C 187 H 19 119/67 100 10/29/23 12:38 142 H O2 Del Method 10/29/23 13:30 Room Air 10/29/23 13:25 Room Air 10/29/23 13:20 Room Air 10/29/23 13:15 10/29/23 13:10 10/29/23 13:05 Room Air 10/29/23 13:04 10/29/23 13:03 10/29/23 12:56 10/29/23 12:56 10/29/23 12:55 10/29/23 12:54 Room Air 10/29/23 12:54 Room Air 10/29/23 12:54 Room Air 10/29/23 12:51 10/29/23 12:50 10/29/23 12:50 Room Air 10/29/23 12:48 10/29/23 12:48 Room Air 10/29/23 12:45 10/29/23 12:39 Room Air 10/29/23 12:38 Code Status & VTE Plan VTE Prophylaxis Plan VTE Prophylaxis will be ordered: Yes PG Care Time/CCT Total # of Minutes Spent Total Time Spent with Patient: Total time spent is greater than 50% in coordination of care (as documented) at patient's floor/unit and/or counseling patient: Coding Level of Care Code 65258 INT INP/OBS CARE 3/75MIN Diagnoses Wide-complex tachycardia R00.0 Bipolar disorder F31.9 Hyperlipidemia E78.5 Attention deficit disorder (ADD) F98.8 BPH (benign prostatic hyperplasia) N40.0 GERD (gastroesophageal reflux disease) K21.9 Sleep apnea G47.30
[2023-10-29] MEDS ORDERED: POLYETHYLENE (MIRALAX) 17 GM PACK PO PRN (16:47)
[2023-10-29] MEDS ORDERED: ACETAMINOPHEN 325 MG TAB PO PRN (16:47)
[2023-10-29] MEDS ORDERED: HEPARIN SODIUM/DEXTROSE 25,000 UNITS/500 ML BAG IV SCH (17:00)
[2023-10-29] MEDS: METOPROLOL TARTRATE 25 MG TAB PO SCH (17:23)
[2023-10-29] MEDS: HEPARIN SODIUM/DEXTROSE 25,000 UNITS/500 ML BAG IV SCH (17:24)
[2023-10-29] MEDS: Heparin IV Adult Wt-Based Low-Dose *NO* INITIAL Bolus Protocol IV STA (17:33)
[2023-10-29] MEDS ORDERED: lamoTRIgine 100 MG TAB PO SCH (20:30)
[2023-10-29] MEDS: FLUTICASONE PROPIONATE NA SPR 16 GM BTL NAE SCH (23:59)
[2023-10-29] MEDS: GABAPENTIN 600 MG TAB PO SCH (23:59)
[2023-10-29] MEDS: MIRTAZAPINE TAB 15 MG TAB PO SCH (23:59)
[2023-10-29] MEDS: DOXAZosin MESYLATE 4 MG TAB PO SCH (23:59)
[2023-10-30 00:07] LABS: ANTI-Xa, UFH(UnfractionatedHep 0.14 IU/ml (0.3-0.7)
[2023-10-30] MEDS: lamoTRIgine 100 MG TAB PO SCH (00:13)
[2023-10-30] MEDS: HEPARIN SOD (PORCINE) 1000 UNIT/ML IV ONE (00:37)
--- NOTE | 2023-10-30 06:42 | Electrocardiogram Report ---
Test Reason : Blood Pressure : / mmHG Vent. Rate : 184 BPM Atrial Rate : 000 BPM P-R Int : 000 ms QRS Dur : 148 ms QT Int : 268 ms P-R-T Axes : 000 266 -22 degrees QTc Int : 469 ms Wide QRS tachycardia Right bundle branch block Abnormal ECG When compared with ECG of 13-JUL-2017 06:23, Wide QRS tachycardia has replaced Sinus rhythm Vent. rate has increased BY 112 BPM Confirmed by Wilian Zarco ([id number]) on 10/30/2023 6:42:18 AM Referred By: REFERRED SELF Confirmed By:Wilian Zarco
--- NOTE | 2023-10-30 06:44 | Electrocardiogram Report ---
Test Reason : Blood Pressure : / mmHG Vent. Rate : 110 BPM Atrial Rate : 185 BPM P-R Int : 000 ms QRS Dur : 112 ms QT Int : 344 ms P-R-T Axes : 000 267 -11 degrees QTc Int : 465 ms Atrial fibrillation with rapid ventricular response Right superior axis deviation Incomplete right bundle branch block Right ventricular hypertrophy Possible Anterior infarct , age undetermined Abnormal ECG When compared with ECG of 29-OCT-2023 12:45, Atrial fibrillation has replaced Wide QRS tachycardia Vent. rate has decreased BY 74 BPM Confirmed by Wilian Zarco ([id number]) on 10/30/2023 6:44:10 AM Referred By: REFERRED SELF Confirmed By:Wilian Zarco
[2023-10-30 07:51] LABS: ANTI-Xa, UFH(UnfractionatedHep 0.46 IU/ml (0.3-0.7)
[2023-10-30] MEDS: APIXABAN 5 MG TABLET PO SCH (08:31)
[2023-10-30] MEDS: GABAPENTIN 300 MG CAP PO SCH ×2 (08:32→11:26)
[2023-10-30] MEDS: HEPARIN GTT: STOP ORDER SCH (08:32)
--- NOTE | 2023-10-30 08:40 | Electrocardiogram Report ---
Test Reason : Blood Pressure : / mmHG Vent. Rate : 097 BPM Atrial Rate : 097 BPM P-R Int : 194 ms QRS Dur : 106 ms QT Int : 364 ms P-R-T Axes : 088 266 -45 degrees QTc Int : 462 ms Atrial flutter with contolled ventricular response Right superior axis deviation Incomplete right bundle branch block Right ventricular hypertrophy Possible Old Anterior infarct (cited on or before 29-OCT-2023) Abnormal ECG When compared with ECG of 29-OCT-2023 12:59, No significant change Confirmed by Fredo Sood ([id number]) on 10/30/2023 8:40:10 AM Referred By: REFERRED SELF Confirmed By:Fredo Sood
--- NOTE | 2023-10-30 09:31 | XCELERA ---
[id number]
[2023-10-30] MEDS: lamoTRIgine 25 MG TAB PO SCH (09:56)
--- NOTE | 2023-10-30 10:05 | Hospitalist Progress Note ---
Date of Service October 30, 2023 Assessment & Plan (1) Wide-complex tachycardia: Plan: -Pt admitted for wide QRS complex tachycardia/true VT -> atrial fibrillation w/ RVR -Wide QRS complex tachycardia -S/p amiodarone bolus + infusion in ER with improvement in rate control and subsequent conversion to sinus tachycardia -Converted back into atrial fibrillation/flutter this AM -TTE- EF 55-60%, unremarkable -Unclear etiology -No electrolyte abnormalities -No recent illnesses or apparent dehydration -History of DURAN but not uncontrolled, not requiring CPAP -Medications reviewed- lamotrigine may have some arrhythmia risk -Unknown time of onset/duration of atrial fibrillation -CHASTEVASC 1- anticoagulation initiated, transitioned from heparin to Eliquis this AM -Continue metoprolol tartrate 25 mg BID for rate control -Currently rate-controlled, remains in atrial fibrillation -Cardiology consult, pending -Monitor BMP, Mg (2) Bipolar disorder: Plan: Continue mirtazapine, lamotrigine Patient also uses propranolol 20 mg BID and as PRN for stage fright (3) Hyperlipidemia: Plan: Continue rosuvastatin 5 mg (4) Attention deficit disorder (ADD): Plan: Methylphenidate held due to presenting tachycardia (5) BPH (benign prostatic hyperplasia): Plan: Continue doxazosin (6) GERD (gastroesophageal reflux disease): Plan: Continue PPI (7) Sleep apnea: Plan: -Hx of endoscopic sinus surgery in past and since has not required CPAP to his k nowledge. -Overnight oximetry w/o desaturation events Plan DVT PPx: Heparin to apixaban this AM CODE: Full Dispo: PCU Diet: Heart healthy Admission and Anticipated Discharge Date Admission Date: October 29, 2023 Supervising Physician Co-Signing Physician Notes I personally examined the patient and verified all dobbins points of history and exam, discussed case, and agree with decision making with Dr Meadows feeling a little lightheaded HR still 100. hurt foot last week still has some lateral L foot pain with walking vitals noted nad heent nc at mmm breathing unlabored no accessory muscles good effort skin no rashes no pallor or icterus. moderate reproducible point tenderness mid 4th metatarsal afib - still symptomatic, rates still up, BP gives limited wiggle room for rate control options. probable cardioversion tomorrow. prior DURAN - sleep study as outpt (possible cause of above) foot pain - doubt fx but does still have reproducible point tenderness - Xray anticoagulated otherwise as above Subjective Acute events overnight- none. Did appear to return to sinus rhythm for much of the night but returned to atrial fibrillation/flutter this AM around 7-8 AM. Pt examined at bedside. Reports feeling well, denies chest pain or palpitations, lightheadedness. He does feel better compared to admission. Review of Systems Review of Systems: Per HPI/Subjective Physical Exam Physical Exam: General: Well-appearing, no acute distress HEENT: Atraumatic, normocephalic. Vision/hearing intact without deficit Pulm: CTAB. -wheezes, -rales, -rhonchi. Symmetrical chest rise. No increased work of breathing. No respiratory distress. Cardiac: tachycardic, irregular rhythm, -mrg. Radial pulses intact and symmetrical. Abdominal: Soft, nontender, nondistended, no guarding or rebound Ext: warm, dry, no edema Results & Data Results & Data Vital Signs (Past 12 Hours) Vital Signs Temp Pulse Pulse Pulse Resp BP BP 10/30/23 07:51 36.5 C 102 H 16 94/62 L 10/30/23 03:06 36.9 C 101 H 18 98/63 L 10/30/23 03:00 100 H 10/30/23 00:44 80 10/30/23 00:31 103 H 10/30/23 00:04 36.6 C 101 H 18 97/56 L 10/29/23 22:31 104 H Pulse Ox Pulse Ox O2 Del Method O2 Del Method 10/30/23 07:51 94 Room Air 10/30/23 03:06 93 Room Air 10/30/23 03:00 94 Room Air 10/30/23 00:44 96 Room Air 10/30/23 00:31 10/30/23 00:04 96 Room Air 10/29/23 22:31 97 Room Air Resident Activity Tracking Resident Involvement: Resident Care Provided Care Provided: Adult Hospital Medicine
--- NOTE | 2023-10-30 11:52 | Cardiology Consultation ---
Date of Consultation October 30, 2023 Assessment & Plan (1) Atrial flutter with rapid ventricular response: New onset atrial flutter with rapid ventricular response, no obvious precipitating factors. Does take methylphenidate at baseline, this has been held. Given recurrent tachycardia (particularly with position change) but borderline BP (without evidence of hypoperfusion), would favor restarting amiodarone for better temporary rate control with less hypotensive tendency and as an antiarrhythmic to optimize probability of returning to sinus rhythm. Would recommend discontinuing metoprolol and initiating amiodarone 200 mg every 6 hours for the next 24 to 48 hours. If he remains in atrial flutter, likely would proceed to electrical cardioversion tomorrow morning. Please maintain n.p.o. status overnight. If BP allows and rate remains elevated, would use propranolol rather than metoprolol since he often takes propranolol for his stutter and to prevent anxiety/stage fright type symptoms. Once he converts (or is converted) to sinus rhythm, could use long-acting propranolol to help prevent recurrent tachydysrhythmia and wean off amiodarone. Agree with anticoagulation with apixaban. Long-term, since he has an Apple Watch, may determine that he does not need maintenance anticoagulation as long as he is monitoring rhythm, but would use apixaban for the next 3 to 6 months while the frequency of recurrent atrial dysrhythmia is assessed. Will continue to follow and will arrange for electrical cardioversion in the morning if necessary. (2) Wide-complex tachycardia: Appears to be atrial flutter with temporary QRS widening. (3) Bipolar disorder: Continue lamotrigine and mirtazapine. These are unlikely to be contributing to his atrial dysrhythmias. (4) Attention deficit disorder (ADD): Hold methylphenidate for the next day or so. Since he doesn't drive substantial benefit, likely could resume this once he is on maintenance beta-simone. History of Present Illness Reason for Consultation: wide complex tachycardia, suspect afib RVRw/ RBBB Requesting Physician: Ryder Amaya DO Attending Physician: Ryder Amaya DO History of Present Illness 68-year-old man with history of bipolar disorder, ADHD, no known cardiac history, was admitted 10/29/2023 with fatigue and lightheadedness and found to have a tachydysrhythmia. He had a viral illness August 2023 and a persistent cough afterwards, but no other recent health issues. His maintenance psychoactive medications include methylphenidate, lamotrigine, and mirtazapine. His methylphenidate offers substantial benefit for his ADHD, currently it is being held. He felt well prior to awakening yesterday morning with symptoms of fatigue and noting on his Apple Watch that his heart rate was 182 bpm. Initial tracing here shows wide-complex tachycardia, but morphology is similar to subsequent tracings which show probable atrial flutter with rapid ventricular response. He was initially on an amiodarone drip, rate improved and this was discontinued and he was placed on low-dose beta-simone. He does note marked increase in lightheadedness upon standing and his heart rate jumps up to 150 bpm. Echocardiogram is normal and serial troponins unremarkable. No chest pain at any time and no dyspnea, tachypalpitations, presyncope, or syncope. No orthopnea, PND, or ankle edema. His only somatic complaint is mild sense of lightheadedness currently, with heart rate of 100 bpm and normotensive BP. Allergies Allergy/AdvReac Type Severity Reaction Status Date / Time No Known Allergies Allergy NONE Verified 12/11/20 05:16 Home Medications Medication Instructions Recorded Confirmed Type cetirizine 10 mg tablet (Zyrtec) 10 mg PO QAM 12/28/18 10/29/23 History docusate sodium 100 mg tablet 100 mg PO BID 12/28/18 10/29/23 History doxazosin 8 mg tablet 8 mg PO HS 12/28/18 10/29/23 History lamotrigine 200 mg tablet 100 mg PO AMPM 12/28/18 10/29/23 History (Lamictal) methylphenidate HCl 10 mg tablet 10 mg PO DAILY PRN NEEDED 12/28/18 10/29/23 History (Ritalin) mirtazapine 15 mg tablet 15 mg PO HS 12/28/18 10/29/23 History rosuvastatin 5 mg tablet (Crestor) 5 mg PO HS 12/28/18 10/29/23 History gabapentin 300 mg capsule See Rx Instructions .Route .COMPLEX 12/11/20 10/29/23 History Lamictal 25 mg PO QAM 10/29/23 10/29/23 History amoxicillin 875 mg-potassium tab 10/29/23 History clavulanate 125 mg tablet fluticasone propionate 50 1 spray intranasal HS 10/29/23 10/29/23 History mcg/actuation nasal spray,suspension (Flonase Allergy Relief) gabapentin 900 mg PO QAM 10/29/23 10/29/23 History gabapentin 600 mg tablet 1,200 mg PO QPM 10/29/23 10/29/23 History pantoprazole 40 mg tablet,delayed 40 mg PO DAILY 10/29/23 10/29/23 History release propranolol 20 mg tablet 20 mg PO BID PRN Other 10/29/23 10/29/23 History Patient History Medical History BPH (benign prostatic hyperplasia) GERD (gastroesophageal reflux disease) Anemia MILD Attention deficit disorder (ADD) Bipolar disorder Depression Anxiety Hyperlipidemia Sleep apnea NO DEVICE Environmental allergies Surgical History S/P repair of hydrocele History of surgery AN -pectus excavatum REPAIR History of esophagogastroduodenoscopy (EGD) History of colonoscopy History of herniorrhaphy History of endoscopic sinus surgery History of tonsillectomy History of adenoidectomy Family History Other No pertinent family history in first degree relatives Social History Smoking Status: Never smoker Second Hand Exposure: No; Do You Dip or Chew Tobacco: No; Hx Substance Use: No Preferred Language: Russian Communication Ability: Effective Pile Driver Engineer Required: No Beliefs That Will Affect Care: None Current Living Situation: Spouse Feels Safe at Home: Yes Assistive Devices: Glasses Physical Exam Physical Exam: Adult white male in no distress. Normal BMI. BP borderline hypotensive but with no evidence of hypoperfusion. Pulse currently 102 bpm and irregular. Skin: no ecchymoses or generalized lesions. HEENT: unremarkable. Neck: JVP at the clavicle at 90 degrees, no carotid bruits. Lungs: clear. Cardiac: irregular/tachycardic rhythm, normal S1-2, no murmur. Abdomen: benign. Extremities: no edema, pulses intact. Neurologic: normal affect and conversation, nonfocal. Results & Data Vital Signs (Past 12 Hours) Vital Signs Temp Pulse Pulse Pulse Resp BP BP 10/30/23 07:51 97.7 F 102 H 16 94/62 L 10/30/23 03:06 98.4 F 101 H 18 98/63 L 10/30/23 03:00 100 H 10/30/23 00:44 80 10/30/23 00:31 103 H 10/30/23 00:04 97.9 F 101 H 18 97/56 L Pulse Ox Pulse Ox O2 Del Method O2 Del Method 10/30/23 07:51 94 Room Air 10/30/23 03:06 93 Room Air 10/30/23 03:00 94 Room Air 10/30/23 00:44 96 Room Air 10/30/23 00:31 10/30/23 00:04 96 Room Air Laboratory Results Troponin negative x 2. Normal electrolytes with potassium 4.0 and magnesium 2.0. BUN 25, creatinine 1.15. Normal CBC.Normal TSH. Diagnostic Findings Echocardiogram showed EF 55 to 60% with mild LVH, normal RVSP, no significant valvular disease. Compared with 2017 study, no significant change. Initial ECG showed wide QRS complex tachycardia at 184 bpm with right bundle branch block, comparison to subsequent ECGs suggest that this is a flutter with a rapid ventricular response. A second ECG showed probable atrial flutter with ventricular rate of 110 bpm. 30 ECG again showed atrial flutter with rate of 97 bpm, incomplete right bundle branch block, poor R wave progression with possible labeled anterior infarct (no evidence of this on echocardiogram). PG Care Time/CCT Total # of Minutes Spent Total Time Spent with Patient: Total time spent is greater than 50% in coordination of care (as documented) at patient's floor/unit and/or counseling patient: Coding Level of Care Code 33849 IN/OBS CONSULT LVL 4,60M Diagnoses Atrial flutter with rapid ventricular response I48.92 Wide-complex tachycardia R00.0 Bipolar disorder F31.9 Attention deficit disorder (ADD) F98.8
[2023-10-30] MEDS: AMIODARONE 200 MG TAB PO SCH (12:59)
--- NOTE | 2023-10-30 14:54 | Anesthesiology Consultation ---
Date of Service October 30, 2023 Assessment & Plan Chart Review Chart Review: Acceptable Risk for Surgery and Patient NOT seen in Pre Admission Testing Consults Requested none ASA ASA3 Proposed Anesthesia Anesthesia Type: MAC History Height/Weight Height: 6 ft 2 in Weight: 79.4 kg Allergies Allergy/AdvReac Type Severity Reaction Status Date / Time No Known Allergies Allergy NONE Verified 12/11/20 05:16 Medications Home Medications Medication Instructions Recorded Confirmed Last Taken cetirizine 10 mg tablet (Zyrtec) 10 mg PO QAM 12/28/18 10/29/23 12/10/20 docusate sodium 100 mg tablet 100 mg PO BID 12/28/18 10/29/23 12/10/20 doxazosin 8 mg tablet 8 mg PO HS 12/28/18 10/29/23 12/10/20 lamotrigine 200 mg tablet 100 mg PO AMPM 12/28/18 10/29/23 10/28/23 (Lamictal) methylphenidate HCl 10 mg tablet 10 mg PO DAILY PRN NEEDED 12/28/18 10/29/23 09/25/19 08:00 (Ritalin) mirtazapine 15 mg tablet 15 mg PO HS 12/28/18 10/29/23 12/10/20 rosuvastatin 5 mg tablet (Crestor) 5 mg PO HS 12/28/18 10/29/23 12/10/20 gabapentin 300 mg capsule See Rx Instructions .Route .COMPLEX 12/11/20 10/29/23 1 Day Ago ~10/28/23 Lamictal 25 mg PO QAM 10/29/23 10/29/23 10/29/23 amoxicillin 875 mg-potassium tab 10/29/23 10/28/23 clavulanate 125 mg tablet fluticasone propionate 50 1 spray intranasal HS 10/29/23 10/29/23 Unknown mcg/actuation nasal spray,suspension (Flonase Allergy Relief) gabapentin 900 mg PO QAM 10/29/23 10/29/23 10/29/23 900 mg gabapentin 600 mg tablet 1,200 mg PO QPM 10/29/23 10/29/23 Unknown pantoprazole 40 mg tablet,delayed 40 mg PO DAILY 10/29/23 10/29/23 Unknown release propranolol 20 mg tablet 20 mg PO BID PRN Other 10/29/23 10/29/23 Unknown Active Medications Generic Name Dose Route Start Last Admin Trade Name Girmaq PRN Reason Stop Dose Admin Amiodarone HCl 200 mg 10/30/23 13:00 10/30/23 12:59 Amiodarone 200 Mg Tab PO 11/29/23 12:59 200 mg Q6 SERAFIN Administration Apixaban 5 mg 10/30/23 09:00 10/30/23 08:31 Apixaban 5 Mg Tablet PO 11/29/23 08:59 5 mg BID SERAFIN Administration Doxazosin Mesylate 8 mg 10/29/23 21:00 10/29/23 23:59 Doxazosin Mesylate 4 Mg Tab PO 11/28/23 20:59 8 mg HS SERAFIN Administration Fluticasone Propionate 1 sprays 10/29/23 21:00 10/29/23 23:59 Fluticasone Propionate Na Spr 16 Gm Btl SHELBY 11/28/23 20:59 1 sprays HS SERAFIN Administration Gabapentin 900 mg 10/30/23 09:00 10/30/23 08:32 Gabapentin 300 Mg Cap PO 11/29/23 08:59 900 mg QAM SERAFIN Administration Gabapentin 1,200 mg 10/29/23 21:00 10/29/23 23:59 Gabapentin 600 Mg Tab PO 11/28/23 20:59 1,200 mg QPM SERAFIN Administration Gabapentin 900 mg 10/30/23 12:00 10/30/23 11:26 Gabapentin 300 Mg Cap PO 11/29/23 11:59 900 mg DAILY@1200 SERAFIN Administration Lamotrigine 25 mg 10/30/23 09:00 10/30/23 09:56 Lamotrigine 25 Mg Tab PO 11/29/23 08:59 25 mg QAM SERAFIN Administration Lamotrigine 100 mg 10/29/23 21:00 10/30/23 00:13 Lamotrigine 100 Mg Tab PO 11/28/23 20:59 100 mg QPM SERAFIN Administration Protocol Mirtazapine 15 mg 10/29/23 21:00 10/29/23 23:59 Mirtazapine Tab 15 Mg Tab PO 11/28/23 20:59 15 mg HS SERAFIN Administration Past Medical History Medical History BPH (benign prostatic hyperplasia) GERD (gastroesophageal reflux disease) Anemia MILD Attention deficit disorder (ADD) Bipolar disorder Depression Anxiety Hyperlipidemia Sleep apnea NO DEVICE Environmental allergies Exercise / Class Metabolic Activity III < 4 Walking/Shop/Light housework Past Family History Family History Other No pertinent family history in first degree relatives Past Surgical History Surgical History S/P repair of hydrocele History of surgery AN INFANT-pectus excavatum REPAIR History of esophagogastroduodenoscopy (EGD) History of colonoscopy History of herniorrhaphy History of endoscopic sinus surgery History of tonsillectomy History of adenoidectomy Past Anesthesia History No Hx of Anesthesia Complications and No Family Hx of Anesthesia Complications History of PONV No Hx of PONV and No Hx of Motion Sickness Social History Smoking Status: Never smoker Do You Dip or Chew Tobacco: No Alcohol type: wine alcohol intake frequency: holidays/special occasions only Hx Substance Use: No substance use type: does not use Physical Exam Vital Signs Last Vital Signs Temp 36.8 C 10/30/23 11:51 Pulse 100 H 10/30/23 11:51 Resp 18 10/30/23 11:51 BP 95/62 L 10/30/23 11:51 Pulse Ox 96 10/30/23 11:51 O2 Del Method Room Air 10/30/23 11:51 Testing Laboratory Results 10/29/23 12:47 10/29/23 12:47 PT 10.9 Seconds (9.0-12.0) 10/29/23 12:47 INR 1.0 (0.9-1.1) 10/29/23 12:47 APTT 31 Seconds (21-31) 10/29/23 12:47 Electrocardiogram Date: 10/29/23 Findings: + AFIB @ (Atrial Flutter @ 97 w/ controlled ventricular response;RAD;IRBBB;RVH;possible old anterior OR) Chest X-Ray Date: 10/29/23 Findings: + NAD Echocardiogram Date: 10/30/23 EF: 55% LV Function: normal RWMA: + none Other Findings: + LVH (mild) Valvular Disease: + no significant valvular disease
--- NOTE | 2023-10-30 17:09 | Billing Data ---
Date of Service October 30, 2023 Coding Level of Care Code 32105 SUB INP/OBS CARE
--- NOTE | 2023-10-30 18:43 | XRay Report ---
XR foot LT min 3V routine HISTORY: 68 years-old Male fall, point tenderness mid 4th metatarsal acute left foot pain COMPARISON: 11/26/2021 TECHNIQUE: 3 views of the left foot FINDINGS: Bipartite medial hallux sesamoid. Mild osteoarthritis is most pronounced in the first MTP joint. Russ tionally, there is mild soft tissue swelling surrounding the first MTP joint. No acute fracture, disl ocation, osseous erosion or opaque foreign body. IMPRESSION: No acute fracture or dislocation. ACT 112: Negative or not required by law. The above report was generated using voice recognition software. It may contain grammatical, syntax o r spelling errors. Electronically signed by: Srikanth Tillman M.D. 10/30/2023 6:42 PM
[2023-10-31 06:23] LABS: Hematocrit (blood only) 40.9 % (42.0-52.0); Hemoglobin 13.9 g/dl (14.0-18.0); Mean Corpuscular Hemoglobin 31.6 pg (25.0-34.0); Platelet Count 192 K/uL (130-400); RDW Coefficient of Variation 13.8 % (11.5-14.5); RDW Standard Deviation 47.2 fL (36.4-46.3); White Blood Count 6.72 K/ul (4.8-10.8)
[2023-10-31 06:31] LABS: Albumin Globulin Ratio 1.6 (0.9-2); Albumin Level 3.8 gm/dl (3.4-5.0); BUN Creatinine Ratio 19.6 (10-20); Bilirubin,Total 0.5 mg/dl (0.2-1.0); Calcium 8.9 mg/dl (8.6-10.3); Creatinine Clr Calc Pharmacy 79.5 ml/min; Est GFR (African American) 87.7 ml/min; Est GFR (Non-African American) 75.7 ml/min; Globulin 2.4 gm/dl (2.5-4.0); Magnesium 1.9 mg/dl (1.7-2.4); Total Protein 6.2 gm/dl (6.0-8.3)
--- NOTE | 2023-10-31 07:23 | Anesthesiology Progress Note ---
Date of Service October 31, 2023 Anesthesia Post Procedure Vital Signs Vital Signs: Temp Pulse Resp BP Pulse Ox O2 Del Method 10/31/23 04:10 109/65 10/31/23 04:06 36.6 C 106 H 18 100/60 94 Room Air 10/30/23 23:14 36.4 C L 104 H 20 107/75 95 Room Air 10/30/23 19:28 36.6 C 102 H 20 109/69 95 Room Air 10/30/23 17:07 36.5 C 106 H 18 87/54 L 96 Room Air 10/30/23 11:51 36.8 C 100 H 18 95/62 L 96 Room Air 10/30/23 07:51 36.5 C 102 H 16 94/62 L 94 Room Air Transfer of Care Handoff Completed per policy Notes Mental Status: alert / awake / arousable Patient Amnestic to Procedure: Yes Nausea / Vomiting: adequately controlled Pain: adequately controlled Airway Patency, RR, SpO2: stable & adequate BP & HR: stable & adequate Hydration State: stable & adequate Anesthetic Complications: no major complications apparent and Pt Satisfied with anesthetic care
[2023-10-31] MEDS ORDERED: PROPOFOL IV EMULSION 10 MG/ML 20 ML VIAL IV ONE (07:25)
--- NOTE | 2023-10-31 08:02 | Hospitalist Progress Note ---
Date of Service October 31, 2023 Assessment & Plan (1) Wide-complex tachycardia: Plan: -Pt admitted for wide QRS complex tachycardia/true VT -> atrial fibrillation w/ RVR -Wide QRS complex tachycardia -S/p amiodarone bolus + infusion in ER with improvement in rate control and subsequent conversion to sinus tachycardia -Converted back into atrial fibrillation/flutter this AM -TTE- EF 55-60%, unremarkable -Unclear etiology -No electrolyte abnormalities -No recent illnesses or apparent dehydration -History of DURAN but not uncontrolled, not requiring CPAP -Medications reviewed- lamotrigine may have some arrhythmia risk -Unknown time of onset/duration of atrial fibrillation -CHASTEVASC 1- anticoagulation initiated, transitioned from heparin to Eliquis this AM -Continue metoprolol tartrate 25 mg BID for rate control -Currently rate-controlled, remains in atrial fibrillation -Cardiology consult, pending -Monitor BMP, Mg (2) Bipolar disorder: Plan: Continue mirtazapine, lamotrigine Patient also uses propranolol 20 mg BID and as PRN for stage fright (3) Hyperlipidemia: Plan: Continue rosuvastatin 5 mg (4) Attention deficit disorder (ADD): Plan: Methylphenidate held due to presenting tachycardia (5) BPH (benign prostatic hyperplasia): Plan: Continue doxazosin (6) GERD (gastroesophageal reflux disease): Plan: Continue PPI (7) Sleep apnea: Plan: -Hx of endoscopic sinus surgery in past and since has not required CPAP to his k nowledge. -Overnight oximetry w/o desaturation events Plan DVT PPx: Heparin to apixaban this AM CODE: Full Dispo: PCU Diet: Heart healthy Admission and Anticipated Discharge Date Admission Date: October 29, 2023 Results & Data Results & Data Vital Signs (Past 12 Hours) Vital Signs Temp Pulse Resp BP BP Pulse Ox O2 Del Method 10/31/23 07:56 36.3 C L 61 18 112/70 94 Room Air 10/31/23 07:35 36.7 C 18 106/68 94 Room Air 10/31/23 04:10 109/65 10/31/23 04:06 36.6 C 106 H 18 100/60 94 Room Air 10/30/23 23:14 36.4 C L 104 H 20 107/75 95 Room Air
[2023-10-31] MEDS: fentaNYL citrate PF 100 MCG/2 ML VIAL ONE (08:39)
[2023-10-31] MEDS: MIDAZOLAM HCL 1 MG/ML 2ML VIAL ONE (08:39)
[2023-10-31] MEDS: HEPARIN (PORCINE) 1000 UNIT/ML 10 ML (CATH LAB USE ONLY) ONE (08:39)
[2023-10-31] MEDS: niCARdipine HCL INJ 2.5 MG/ML 10 ML AMP ONE (09:01)
--- NOTE | 2023-10-31 09:57 | Cardioversion ---
Date of Service October 31, 2023 PG Electrical Cardioversion Rp Electrical Cardioversion Report Indication: Atrial flutter Written consent was obtained after the risks and benefits were explained, including but not limited to pain, thermal burn, allergic reaction, aspiration, airway obstruction, laryngospasm, infection, hypotension, and cardiorespiratory arrest. Sedation was supervised by Anesthesiology. The biphasic defibrillator was set to 50 joules of energy and synched. After confirmation of sedation and "all clear" safety check the synchronized shock was delivered. This resulted in successful conversion of the dysrhythmia back into sinus rhythm. See nursing notes for dosages and times. There were no complications and the patient recovered uneventfully from the procedure. Coding Level of Care Code 88268 CARDIOVERSION, ELECTIVE Additional Codes Electrical Cardioversion Report ([id number])
--- NOTE | 2023-10-31 10:06 | Cardiology Progress Note ---
Date of Service October 31, 2023 Assessment & Plan (1) Atrial flutter with rapid ventricular response: Plan: Sinus rhythm post electrical cardioversion. His blood pressure continues to be low normal/borderline hypotensive, therefore would replace doxazosin with tamsulosin for prostatic symptoms. Recommend the followin. Discontinue amiodarone. 2. Initiate Inderal LA 60 mg daily (dose now). 3. As an outpatient, he can take an dose of propranolol 20 mg if he develops tachypalpitations. 4. Continue apixaban 5 mg twice daily for now (may shift to monitoring with PRN apixaban in the future). 5. Restart methylphenidate a day or two after discharge. 6. Discontinue doxazosin. 7. Initiate tamsulosin 4 mg nightly. 8. Cardiology follow-up with me in the office in 2 to 4 weeks. Will check on him this afternoon, if he is doing well he could potentially be discharged after dinner tonight. (2) Wide-complex tachycardia: Plan: Appears to be atrial flutter with temporary QRS widening. (3) Bipolar disorder: Plan: Continue lamotrigine and mirtazapine. These are unlikely to be contributing to his atrial dysrhythmias. (4) Attention deficit disorder (ADD): Plan: Hold methylphenidate for the next day or so. Since he doesn't drive substantial benefit, likely could resume this once he is on maintenance beta-simone. Admission and Anticipated Discharge Date Admission Date: October 29, 2023 Subjective Uneventful night, persistent atrial fibrillation with rapid ventricular response (rate around 100 bpm but increased with any activity or upright posture). No chest pain, dyspnea, or lightheadedness. Underwent electrical cardioversion this morning, feels much better and rhythm is remaining sinus at 60-65 bpm. Physical Exam Physical Exam: Appears comfortable. BP low normal. Pulse 60 bpm and regular. Skin: no ecchymoses or generalized lesions. HEENT: unremarkable. Neck: JVP at the clavicle at 90 degrees, no carotid bruits. Lungs: clear. Cardiac: regular rhythm, normal S1-2, no murmur. Abdomen: benign. Extremities: no edema, pulses intact. Neurologic: normal affect and conversation, nonfocal. Results & Data Laboratory Results Normal electrolytes, BUN 20, creatinine 1.02. PG Care Time/CCT Total # of Minutes Spent Total Time Spent with Patient: Total time spent is greater than 50% in coordination of care (as documented) at patient's floor/unit and/or counseling patient: Coding Level of Care Code 17865 SUB INP/OBS CARE 3/50MIN Diagnoses Atrial flutter with rapid ventricular response I48.92 Wide-complex tachycardia R00.0 Bipolar disorder F31.9 Attention deficit disorder (ADD) F98.8
[2023-10-31] MEDS: PROPRANOLOL HCL 20 MG TAB PO SCH (11:17)
[2023-10-31] MEDS: PANTOprazole 40 MG TAB PO SCH (12:12)
--- NOTE | 2023-10-31 12:26 | Electrocardiogram Report ---
Test Reason : Blood Pressure : / mmHG Vent. Rate : 063 BPM Atrial Rate : 063 BPM P-R Int : 196 ms QRS Dur : 108 ms QT Int : 408 ms P-R-T Axes : 077 -84 035 degrees QTc Int : 417 ms Normal sinus rhythm Left atrial enlargement Left anterior fascicular block Incomplete right bundle branch block Abnormal ECG When compared with ECG of 29-OCT-2023 13:50, Sinus rhythm has replaced Atrial flutter Vent. rate has decreased BY 34 BPM Criteria for Old Anterior infarct no longer present Confirmed by Fredo Sood ([id number]) on 10/31/2023 12:26:47 PM Referred By: REFERRED SELF Confirmed By:Fredo Sood
--- NOTE | 2023-10-31 16:39 | Discharge Summary ---
Date of Service October 31, 2023 Admission HPI Per Admitting Provider Rommel is a 68-year-old male with past medical history of bipolar disorder, hyperlipidemia, who presents to the ER with tachycardia and heart rate over 180. Rommel reports that he felt normal when going to bed last night, upon waking up this morning getting a bed he felt extremely fatigued. He continued to take his morning medicines which include gabapentin, Ritalin, and lamotrigine. He still felt very tired and lightheaded and laid down on the couch for period of time to rest. He again tried to get back up after this but it felt extremely lightheaded and fatigued again. He went to the bathroom and had a long fairly loose bowel movement, upon standing he again felt lightheaded so he checked his Apple Watch which showed a heart rate of 185. At that time he had a feeling of reflux which was similar to prior and usually presents as a tongue/jaw burning sensation and did have tomatoes last night so thought he might of had GERD but was concerned about his heart racing and presented to the ER. He reports he did not have chest pain or chest pressure. He did have some discomfort underneath/below his left lower ribs similar to prior colitis pain but feels this was in his abdomen more than his chest and has resolved. He felt lightheaded and short of breath during the episode, was not sweating. Reports he did not have syncope at any point. No cough. Feels improved at time of bedside assessment with no pain. Denies fevers. Notes he does get cold easily but has not had chills. He reports he did have colitis recently which was treated with antibiotics. He reports last week he did have a follow-up EGD/colonoscopy which was normal with no concerning findings other than mild gastritis He denies prior cardiac history. Has no history of NE or heart disease. He drinks alcohol rarely and socially and does not use tobacco products. He does not have a history of diabetes or hypertension, he notes his blood pressure tends to run slightly low. Family history of cardiac disease in his father who had multivessel CAD in his late 60s. Denies medical problems in his mother. Medical History: Reviewed Medications: Reviewed Surgical History: Reviewed Family history: Reviewed Allergies: Reviewed Social History: No tobacco, rare social alcohol use. No recreational drug Code Status: Full code Principal Diagnosis Atrial Flutter Discharge Exam Constitutional: well-appearing, no acute distress HEENT: NCAT, no conjunctival injection CV: regular rhythm, no murmur appreciated, extremities well-perfused, no LE edema Resp: CTABL, no wheezes/rales/rhonchi appreciated, no increased work of breathing GI: soft, nondistended, nontender MSK: no gross deformities appreciated Skin: warm, dry, no rash appreciated Neuro: alert, oriented, no focal neurologic deficit appreciated Discharge Data Allergies Allergy/AdvReac Type Severity Reaction Status Date / Time No Known Allergies Allergy NONE Verified 12/11/20 05:16 Consultations 10/29/23 14:14 ED Decision to Admit Stat 10/30/23 09:00 Consult Cardiology Routine 10/30/23 12:02 Consult Anesthesiology Routine 10/30/23 19:00 Consult [facility] fuse coiler Routine Procedures Performed Operation Date: 10/31/23 07:15 Actual Procedures p Cardioversion - Fredo Sood MD Hospital Course (1) Atrial flutter with rapid ventricular response: -Pt admitted for atrial flutter - s/p cardioversion 10/31 -TTE- EF 55-60%, unremarkable -CHASTEVASC 1-was started on Eliquis 5mg BID -Continue metoprolol tartrate 25 mg BID for rate control -Currently rate-controlled, plan to continue 30mg Propanol ER (1/2 of 60mg tab) - f/u with cardiology 2-4 weeks (2) Bipolar disorder: - Continue lamotrigine and mirtazapine. (3) Hyperlipidemia: Continue rosuvastatin 5 mg (4) Attention deficit disorder (ADD): - Hold methylphenidate until PCP f/u. Could resume if HR and BP stable (5) BPH (benign prostatic hyperplasia): - continue doxazosin; trial of decrease to 4mg from 8mg - considered switching to tamsulosin, but did not tolerate prior (6) GERD (gastroesophageal reflux disease): - continue PPI (7) Sleep apnea: -Hx of endoscopic sinus surgery in past and since has not required CPAP to his knowledge. -Overnight oximetry w/o desaturation events Total Time Total Time Spent Total Time Spent (In Minutes): see attending attestation Discharge Plan Discharge Items Patient Disposition: Home - Self-Care Reason For Visit: WIDE COMPLEX TACHYCARDIA Discharge Diagnosis: Atrial flutter with rapid ventricular response Activity: Per Instructions section Non-emergency contact: Primary Care Provider and Stock Controller Call non-emergency contact if: you have any medication questions and your symptoms worsen Follow-up/Referrals: Fredo Sood MD [Physician] - (Will need cardiology f/u in 2-4weeks ) Marty Uribe [Primary Care Provider] - Diet: Regular Addtl Attending Provider Instructions: You were admitted and treated for atrial flutter, an fast and irregular heart rhythm. You had a cardioversion and your heart is back to normal sinus rhythm. You were started on a few new medications: - Eliquis is an anticoagulant that is used to help prevent blood clots as there is an increased risk of clots with atrial fibrillation/flutter. A prescription was sent to the pharmacy. You should take 5mg twice a day (12 hours apart). - Propanol is a beta simone that helps to control heart rate. You should take 1/2 of a 60mg capsule in the morning every day. - You should hold off on restarting your methylphenidate until your follow up with your primary care doctor and/or respiratory director to ensure that your heart rate and blood pressure are under control. - It is ok to continue taking doxazosin in the evening, to help try to mitigate the risk of low blood pressure that can come along with it you should try to take 1/2 of the 8mg tablet (4mg) and see if your symptoms are controlled with the lower dose. Please make a follow up appointment with your primary care doctor. I have requested a follow up with Dr. Sood, so his office should reach out to you to get an appointment scheduled, if you do not hear from them please call their office to make a follow up appointment. Pending Studies at Discharge: No Stand-Alone Forms: [facility] Medications and DC Order Prescriptions: New Eliquis 5 mg Tablet 5 mg PO BID 30 Days Qty: 60 0RF propranolol 60 mg Capsule,Extended Release 24 Hr 30 mg PO QAM Qty: 30 1RF Rx Instructions: Take 1/2 of cap every morning. Continued lamotrigine [Lamictal] 200 mg Tablet 100 mg PO AMPM cetirizine [Zyrtec] 10 mg Tablet 10 mg PO QAM Rx Instructions: OTC not able to verify with pharmacy 10/29/23 doxazosin 8 mg Tablet 8 mg PO HS Rx Instructions: filled jul 2023 mirtazapine 15 mg Tablet 15 mg PO HS docusate sodium 100 mg Tablet 100 mg PO BID Rx Instructions: OTC not able to verify with pharmacy 10/29/23 rosuvastatin [Crestor] 5 mg Tablet 5 mg PO HS gabapentin 300 mg capsule See Rx Instructions .ROUTE .COMPLEX Rx Instructions: 5 caps daily- 300 MG CAP; TAKE 900 MG QAM AND MID DAY, THEN TAKE 1200 MG AT HS. gabapentin 600 mg tablet 1,200 mg PO QPM pantoprazole 40 mg tablet,delayed release (DR/EC) 40 mg PO DAILY Lamictal 25 mg 25 mg PO QAM gabapentin 900 mg capsule 900 mg PO QAM fluticasone propionate [Flonase Allergy Relief] 50 mcg/actuation spray,suspension 1 spray intranasal HS Held methylphenidate HCl [Ritalin] 10 mg Tablet 10 mg PO DAILY PRN (Reason: NEEDED) Hold Instructions: Hold until follow-up with PCP, if heart rate well controlled and blood pressure is good can resume. Rx Instructions: not on file with pharmacy 10/29/23 Discontinued propranolol 20 mg tablet 20 mg PO BID PRN (Reason: Other) amoxicillin-pot clavulanate 875-125 mg tablet Admission Data Admit Date/Time: 10/29/23 14:02 Attending Provider: Zohreh Ambrocio Admit Provider: Darien Trinh Primary Care Provider: Marty Uribe Other Providers: Darien Trinh; Fredo Sood; Ryder Amaya Resident Activity Tracking Resident Involvement: Resident Care Provided Care Provided: Adult Hospital Medicine
--- NOTE | 2023-10-31 18:17 | Hospitalist Progress Note ---
Date of Service October 31, 2023 Assessment & Plan (1) Atrial flutter with rapid ventricular response: Plan: -Pt admitted for atrial flutter - s/p cardioversion 10/31 -TTE- EF 55-60%, unremarkable -CHASTEVASC 1-was started on Eliquis 5mg BID -Currently rate-controlled but hypotensive, plan to decrease to 30mg Propanol ER (1/2 of 60mg tab) (2) Bipolar disorder: Plan: - Continue lamotrigine and mirtazapine. (3) Hyperlipidemia: Plan: Continue rosuvastatin 5 mg (4) Attention deficit disorder (ADD): Plan: - Hold methylphenidate (5) BPH (benign prostatic hyperplasia): Plan: - continue doxazosin; trial of decrease to 4mg from 8mg - considered switching to tamsulosin, but did not tolerate prior (6) GERD (gastroesophageal reflux disease): Plan: - continue PPI (7) Sleep apnea: Plan: -Hx of endoscopic sinus surgery in past and since has not required CPAP to his knowledge. -Overnight oximetry w/o desaturation events Admission and Anticipated Discharge Date Admission Date: October 29, 2023 Supervising Physician Co-Signing Physician Notes Attending Physician Supervision Note: I independently interviewed and examined the patient and verified the dobbins history and physical, reviewed labs and image studies and agree with findings and care plan noted above. underwent cardioversion this am. no concerns since then. vitals noted nad heent nc at mmm breathing unlabored no accessory muscles good effort skin no rashes no pallor or icterus. afib - s/p cardioversion. propranolol scheduled. monitor bp. apixaban. prior DURAN - sleep study as outpt (possible cause of above) foot pain - negative Xray. likely strain. ADHD - holding methylphenidate for a day. BPH - unable to tolerate flomax. continue doxazosin. anticoagulated otherwise as above Subjective Pt seen at bedside this morning after cardioversion. Doing well, no complaints. Denies chest pain, palpations, dyspnea. Review of Systems Review of Systems: As per above Physical Exam Physical Exam: Constitutional: well-appearing, no acute distress HEENT: NCAT, no conjunctival injection CV: regular rhythm, no murmur appreciated, extremities well-perfused, no LE edema Resp: CTABL, no wheezes/rales/rhonchi appreciated, no increased work of breathing MSK: no gross deformities appreciated Skin: warm, dry, no rash appreciated Neuro: alert, oriented, no focal neurologic deficit appreciated Results & Data Results & Data Vital Signs (Past 12 Hours) Vital Signs Temp Pulse Pulse Resp BP BP Pulse Ox 10/31/23 17:56 63 88/56 L 10/31/23 17:43 87 93/64 L 10/31/23 15:26 36.6 C 78 18 103/65 95 10/31/23 15:00 66 10/31/23 14:39 62 86/57 L 10/31/23 11:58 36.3 C L 71 17 102/52 L 96 10/31/23 09:47 61 10/31/23 08:44 65 99/62 L 10/31/23 07:56 36.3 C L 61 18 112/70 94 10/31/23 07:35 36.7 C 18 106/68 94 O2 Del Method 10/31/23 17:56 10/31/23 17:43 10/31/23 15:26 Room Air 10/31/23 15:00 10/31/23 14:39 10/31/23 11:58 Room Air 10/31/23 09:47 10/31/23 08:44 10/31/23 07:56 Room Air 10/31/23 07:35 Room Air Resident Activity Tracking Resident Involvement: Resident Care Provided Care Provided: Adult Hospital Medicine
[2023-10-31] MEDS ORDERED: TAMSULOSIN HCL 0.4 MG CAP PO SCH (21:00)
[2023-10-31] MEDS: DOXAZosin MESYLATE 4 MG TAB PO SCH (23:41)
[2023-11-01 06:07] LABS: BUN Creatinine Ratio 21.9 (10-20); Calcium 8.8 mg/dl (8.6-10.3); Creatinine Clr Calc Pharmacy 78.2 ml/min; Est GFR (African American) 84.7 ml/min; Est GFR (Non-African American) 73.1 ml/min; Magnesium 1.9 mg/dl (1.7-2.4); Potassium 3.8 mmol/L (3.5-5.1)
[2023-11-01 06:17] LABS: Hematocrit (blood only) 37.3 % (42.0-52.0); Hemoglobin 12.3 g/dl (14.0-18.0); Mean Platelet Volume 9.3 fL (9.4-12.4); Platelet Count 180 K/uL (130-400); RDW Coefficient of Variation 13.9 % (11.5-14.5); RDW Standard Deviation 47.5 fL (36.4-46.3); Red Blood Count 3.97 M/uL (4.70-6.10); White Blood Count 6.66 K/ul (4.8-10.8)
[2023-11-01] MEDS ORDERED: PROPRANOLOL HCL 60 MG LA CAP PO SCH ×2 (09:00→10:00)
--- NOTE | 2023-11-01 10:29 | Discharge Summary ---
Date of Service November 01, 2023 Admission HPI Per Admitting Provider Rommel is a 68-year-old male with past medical history of bipolar disorder, hyperlipidemia, who presents to the ER with tachycardia and heart rate over 180. Rommel reports that he felt normal when going to bed last night, upon waking up this morning getting a bed he felt extremely fatigued. He continued to take his morning medicines which include gabapentin, Ritalin, and lamotrigine. He still felt very tired and lightheaded and laid down on the couch for period of time to rest. He again tried to get back up after this but it felt extremely lightheaded and fatigued again. He went to the bathroom and had a long fairly loose bowel movement, upon standing he again felt lightheaded so he checked his Apple Watch which showed a heart rate of 185. At that time he had a feeling of reflux which was similar to prior and usually presents as a tongue/jaw burning sensation and did have tomatoes last night so thought he might of had GERD but was concerned about his heart racing and presented to the ER. He reports he did not have chest pain or chest pressure. He did have some discomfort underneath/below his left lower ribs similar to prior colitis pain but feels this was in his abdomen more than his chest and has resolved. He felt lightheaded and short of breath during the episode, was not sweating. Reports he did not have syncope at any point. No cough. Feels improved at time of bedside assessment with no pain. Denies fevers. Notes he does get cold easily but has not had chills. He reports he did have colitis recently which was treated with antibiotics. He reports last week he did have a follow-up EGD/colonoscopy which was normal with no concerning findings other than mild gastritis He denies prior cardiac history. Has no history of IL or heart disease. He drinks alcohol rarely and socially and does not use tobacco products. He does not have a history of diabetes or hypertension, he notes his blood pressure tends to run slightly low. Family history of cardiac disease in his father who had multivessel CAD in his late 60s. Denies medical problems in his mother. Principal Diagnosis atrial flutter Discharge Exam Constitutional: well-appearing, no acute distress HEENT: NCAT, no conjunctival injection CV: regular rhythm, no murmur appreciated, extremities well-perfused, no LE edema Resp: CTABL, no wheezes/rales/rhonchi appreciated, no increased work of breathing MSK: no gross deformities appreciated Skin: warm, dry, no rash appreciated Neuro: alert, oriented, no focal neurologic deficit appreciated Discharge Data Allergies Allergy/AdvReac Type Severity Reaction Status Date / Time No Known Allergies Allergy NONE Verified 12/11/20 05:16 Consultations 10/29/23 14:14 ED Decision to Admit Stat 10/30/23 09:00 Consult Cardiology Routine 10/30/23 12:02 Consult Anesthesiology Routine 10/30/23 19:00 Consult [facility] damage inside adjuster Routine Procedures Performed Operation Date: 10/31/23 07:15 Actual Procedures p Cardioversion - Fredo Sood MD Hospital Course (1) Atrial flutter with rapid ventricular response: -Pt admitted for atrial flutter - s/p cardioversion 10/31 -TTE- EF 55-60%, unremarkable -CHASTEVASC 1-was started on Eliquis 5mg BID -Currently rate-controlled but hypotensive with propanol, plan to d/c on 25mg metoprolol succinate - 2 week f/u with cardiology (2) Bipolar disorder: - Continue lamotrigine and mirtazapine. (3) Hyperlipidemia: Continue rosuvastatin 5 mg (4) Attention deficit disorder (ADD): - Hold methylphenidate unitl PCP follow, could consider resuming if HR and BP well controlled (5) BPH (benign prostatic hyperplasia): - continue doxazosin; trial of decrease to 4mg from 8mg - considered switching to tamsulosin, but did not tolerate prior (6) GERD (gastroesophageal reflux disease): - continue PPI (7) Sleep apnea: -Hx of endoscopic sinus surgery in past and since has not required CPAP to his knowledge. -Overnight oximetry w/o desaturation events Total Time Total Time Spent Total Time Spent (In Minutes): see attending attestation Discharge Plan Discharge Items Patient Disposition: Home - Self-Care Reason For Visit: WIDE COMPLEX TACHYCARDIA Discharge Diagnosis: Atrial flutter with rapid ventricular response Activity: Per Instructions section Non-emergency contact: Primary Care Provider and Educational Fundraising Director Call non-emergency contact if: you have any medication questions and your symptoms worsen Follow-up/Referrals: Fredo Sood MD [Physician] - (Will need cardiology f/u in 2-4weeks ) Marty Uribe [Primary Care Provider] - Diet: Regular Addtl Attending Provider Instructions: You were admitted and treated for atrial flutter, an fast and irregular heart rhythm. You had a cardioversion and your heart is back to normal sinus rhythm. You were started on a few new medications: - Eliquis is an anticoagulant that is used to help prevent blood clots as there is an increased risk of clots with atrial fibrillation/flutter. A prescription was sent to the pharmacy. You should take 5mg twice a day (12 hours apart). - Metoprolol is a beta simone that helps to control heart rate. You should take 1 tablet every morning. - You should hold off on restarting your methylphenidate until your follow up with your primary care doctor and/or care transport nurse to ensure that your heart rate and blood pressure are under control. - It is ok to continue taking doxazosin in the evening, to help try to mitigate the risk of low blood pressure that can come along with it you should try to take 1/2 of the 8mg tablet (4mg) and see if your symptoms are controlled with the lower dose. Please make a follow up appointment with your primary care doctor. I have requested a follow up with Dr. Sood, so his office should reach out to you to get an appointment scheduled, if you do not hear from them please call their office to make a follow up appointment. Pending Studies at Discharge: No Stand-Alone Forms: My [facility], Smoking Cessation Medications and DC Order Prescriptions: New Eliquis 5 mg Tablet 5 mg PO BID 30 Days Qty: 60 0RF metoprolol succinate 25 mg Tablet Extended Release 24 Hr 25 mg PO QAM Qty: 30 1RF Continued lamotrigine [Lamictal] 200 mg Tablet 100 mg PO AMPM cetirizine [Zyrtec] 10 mg Tablet 10 mg PO QAM Rx Instructions: OTC not able to verify with pharmacy 10/29/23 doxazosin 8 mg Tablet 8 mg PO HS Rx Instructions: filled jul 2023 mirtazapine 15 mg Tablet 15 mg PO HS docusate sodium 100 mg Tablet 100 mg PO BID Rx Instructions: OTC not able to verify with pharmacy 10/29/23 rosuvastatin [Crestor] 5 mg Tablet 5 mg PO HS gabapentin 300 mg capsule See Rx Instructions .ROUTE .COMPLEX Rx Instructions: 5 caps daily- 300 MG CAP; TAKE 900 MG QAM AND MID DAY, THEN TAKE 1200 MG AT HS. gabapentin 600 mg tablet 1,200 mg PO QPM pantoprazole 40 mg tablet,delayed release (DR/EC) 40 mg PO DAILY Lamictal 25 mg 25 mg PO QAM gabapentin 900 mg capsule 900 mg PO QAM fluticasone propionate [Flonase Allergy Relief] 50 mcg/actuation spray,[place] spension 1 spray intranasal HS Held methylphenidate HCl [Ritalin] 10 mg Tablet 10 mg PO DAILY PRN (Reason: NEEDED) Hold Instructions: Hold until follow-up with PCP, if heart rate well controlled and blood pressure is good can resume. Rx Instructions: not on file with pharmacy 10/29/23 Discontinued propranolol 20 mg tablet 20 mg PO BID PRN (Reason: Other) amoxicillin-pot clavulanate 875-125 mg tablet Discharge Orders: Discharge Order (Routine); Ordered 11/01/23 Ordered By: Jessica Mendoza Admission Data Admit Date/Time: 10/29/23 14:02 Attending Provider: Zohreh Ambrocio Admit Provider: Darien Trinh Primary Care Provider: Marty Uribe Other Providers: Darien Trinh; Fredo Sood; Ryder Amaya Other Interventions: Discharge Summary Assessment (RN) Last Done: 11/01/23 13:14 Supervising Physician Co-Signing Physician Notes Attending Physician Supervision Note: I independently interviewed and examined the patient and verified the dobbins history and physical, reviewed labs and image studies and agree with findings and care plan noted above. comfortable this am. vitals noted nad heent nc at mmm breathing unlabored no accessory muscles good effort skin no rashes no pallor or icterus. afib - s/p cardioversion. now on metoprolol succinate 25mgs. - continue apixaban. cardio to reassess role of long-term anticoagulation based on maintenance of sinus rhythm and ability to monitor rhythm. Hypotension - -If he does note lightheadedness and/or hypotension at home, he will attempt lower dose doxazosin or changing from doxazosin to Rapaflo for his nocturnal BPH med. ADHD - continue to hold methylphenidate. could restart in few days. BPH - unable to tolerate flomax. continue doxazosin - keep lower dose to avoid hypotension. Stuttering - Per cardio - could still take his PRN propranolol if needed while monitoring for lightheadedness/hypotension, but the metoprolol may offer some benefit in reducing anxiety related palpitations. Resident Activity Tracking Resident Involvement: Resident Care Provided Care Provided: Adult Hospital Medicine
--- NOTE | 2023-11-01 10:49 | Cardiology Progress Note ---
Date of Service November 01, 2023 Assessment & Plan (1) Atrial flutter with rapid ventricular response: Plan Rhythm remains sinus with no significant ectopy or dysrhythmia. His blood pressure continues to be low normal/borderline hypotensive but is currently asymptomatic, he did have mildly symptomatic hypotension yesterday after Inderal LA 60 mg. Recommend stopping Inderal and initiating metoprolol succinate 25 mg every morning, blood pressure effect should be minimal, he could be discharged home after lunch if he feels well. If he does note lightheadedness and/or hypotension at home, he will attempt lower dose doxazosin or changing from doxazosin to Rapaflo for his nocturnal BPH med. Could restart methylphenidate in a few days. Continue apixaban 5 mg twice daily in the near term, we will reassess role of long-term anticoagulation based on maintenance of sinus rhythm and ability to monitor rhythm. He could still take his PRN propranolol if needed while monitoring for lightheadedness/hypotension, but the metoprolol may offer some benefit in reducing anxiety related tachypalpitations and he does not depend on the propranolol for managing his stutter. Cardiology follow-up with me in the office 2 to 4 weeks. Admission and Anticipated Discharge Date Admission Date: October 29, 2023 Subjective Uneventful night. Patient did have mild lightheadedness yesterday during periods of mild hypotension. Doxazosin held last night due to borderline BP. BP remains borderline today but he is asymptomatic He feels well today. No chest pain, dyspnea, palpitations, or lightheadedness Telemetry shows sinus rhythm in the 60 bpm range without ectopy or dysrhythmia. Physical Exam Physical Exam: Appears comfortable. BP low normal to mildly hypotensive. Pulse 60 bpm and regular. Skin: no ecchymoses or generalized lesions. HEENT: unremarkable. Neck: JVP at the clavicle at 90 degrees, no carotid bruits. Lungs: clear. Cardiac: regular rhythm, normal S1-2, no murmur. Abdomen: benign. Extremities: no edema, pulses intact. Neurologic: normal affect and conversation, nonfocal. Results & Data Vital Signs (Past 12 Hours) Vital Signs Temp Pulse Pulse Resp BP BP Pulse Ox 11/01/23 07:32 97.9 F 60 17 83/52 L 96 11/01/23 05:46 109/68 11/01/23 04:52 98.6 F 59 L 18 96/50 L 97 11/01/23 00:46 104/68 10/31/23 22:55 58 L O2 Del Method 11/01/23 07:32 Room Air 11/01/23 05:46 11/01/23 04:52 Room Air 11/01/23 00:46 10/31/23 22:55 Laboratory Results Normal electrolytes, BUN 23, creatinine 1.05. PG Care Time/CCT Total # of Minutes Spent Total Time Spent with Patient: Total time spent is greater than 50% in coordination of care (as documented) at patient's floor/unit and/or counseling patient: Coding Level of Care Code 70577 SUB INP/OBS CARE 2/35MIN Diagnoses Atrial flutter with rapid ventricular response I48.92
[2023-11-01] MEDS: METOPROLOL SUCC 25MG EXT REL TAB PO SCH (11:02)
== END 2023-11-01 15:25 | disposition home or self-care (01) | DRG 310 ==
LOC: ED 12:38 → 4W 14:02 → SUATTDRO 14:02 → 4W 18:50

== ENCOUNTER 2025-05-06 09:03 | Inpatient (IN) ==
[2025-05-06] MEDS: METOPROLOL TARTRATE 1 MG/ML VIAL IV PRN (09:20)
--- NOTE | 2025-05-06 09:23 | Emergency Department Note ---
Impression & Plan Wide-complex tachycardia, Atrial flutter with rapid ventricular response, Chest pain, Shortness of breath ED Provider Note NAME: BOBBI SANCHEZ III AGE: 70 SEX: M : 1955 ARRIVES VIA: Walk-In INFORMANT: Patient ED PROVIDER(S): Ryder David DO CHIEF COMPLAINT: Chest pain, shortness of breath and elevated heart rate HPI: Patient is a 70-year-old male with a past medical history of atrial flutter, wide-complex tachycardia who presents to the ER for chest pain and shortness of breath. Symptoms started this past weekend and have been coming and going. He was seen and evaluated in [facility] and treated and felt to be consistent with an atrial flutter and was discharged home. He just started taking his blood thinner today. Denies any dysuria, urgency or frequency. No belly pain. No nausea vomiting or diarrhea. No other exacerbating or remitting factors. ADDITIONAL HISTORY OBTAINED: Per HPI Chronic Medical/Social Conditions Affecting Care: Per HPI PAST MEDICAL HISTORY:See Below PAST SURGICAL HISTORY:See Below FAMILY HISTORY:See Below SOCIAL HISTORY:See Below HOME MEDICATIONS:See Below ALLERGIES:See Below VITALS:See Below PHYSICAL EXAMINATION: GENERAL: Sitting up in bed, alert, well appearing, well nourished, no distress, non-toxic EYE EXAM: normal conjunctiva. OROPHARYNX: mucous membranes are moist LUNGS: Clear to auscultation. Normal chest wall mechanics HEART: Tachycardic, S1 normal and S2 normal ABDOMEN: abdomen soft, non-tender, normo-active bowel sounds, no masses, no rebound or guarding. UPPER EXTREMITIES: upper extremities are grossly normal. LOWER EXTREMITIES: No pitting edema. NEURO EXAM: Normal sensorium, cranial nerves II-XII grossly intact, normal speech, no gross weakness of arms, no gross weakness of legs. MEDICAL DECISION MAKING: Patient is a 70-year-old male who presents ER for chest pain, shortness of breath and feeling his heart race. Upon arrival he is found to be in a wide- complex tachycardia. IV was established and blood work was obtained. Labs show no significant leukocytosis or anemia. BMP along with LFTs, bilirubin, and magnesium was unremarkable. Patient was given IV Lopressor upon arrival and heart rate trended down from 200s to 140s. Second dose was given trend down to the 90s. Patient was given IV fluids. Was consistent with an atrial flutter. Discussed case with the hospitalist and cardiology and patient was admitted for further workup. Consults/Care Managements Discussions: Per MDM Triage Nursing notes reviewed. Limited review of prior medical records performed Vital Signs: reviewed and remarkable for hypotensive and tachycardic Differential diagnosis: Cardiac ischemia, aortic dissection, pulmonary embolism, pneumothorax, pneumonia, pericarditis, myocarditis, esophageal rupture, GERD, cholecystitis, pancreatitis, musculoskeletal, as well as other pathologies. ER treatment provided: See below Diagnostics interpreted by me include EKG and cardiac monitoring as listed below: -Cardiac Monitoring: An order was placed for continuous cardiac monitoring. The monitor shows a rate of 202 with wide-complex tachycardia rhythm. -ECG: Wide-complex tachycardia rate of [address] depressions in V3 through V6 QTc 462 EKG #2 Atrial flutter with a rate of [address] depressions in the lateral leads QTc 479 -Laboratory studies:Interpreted by me as stated above in MDM and shown below. Imaging studies: Xrays: As interpreted by me: Portable AP upright 1 view of the chest shows no focal infiltrate CTs show: none Procedures:none Critical Care: I have personally spent 45 minutes of critical care time in the direct management of this patient. This includes bedside care, interpretation of diagnostic studies, and testing, discussion with consultants, patient, and family members, and other required patient management activities. This 45 minutes is in excess of all separately billable procedures. Past Med/Surg History Problem List (Updated 05/06/25 @ 13:55 by Ryder David DO) Shortness of breath (Acute) Chest pain (Acute) Wide-complex tachycardia (Acute) Atrial flutter Atrial flutter with rapid ventricular response (Acute 10/2023) Sleep apnea NO DEVICE GERD (gastroesophageal reflux disease) BPH (benign prostatic hyperplasia) Attention deficit disorder (ADD) Wide-complex tachycardia Atrial fibrillation (Acute) Chronic sinusitis Bipolar disorder (Chronic) Hyperlipidemia (Chronic) Medical History Anemia MILD Bipolar disorder Depression Anxiety Hyperlipidemia Environmental allergies Surgical History S/P hernia repair S/P repair of hydrocele History of surgery AN INFANT-pectus excavatum REPAIR History of esophagogastroduodenoscopy (EGD) History of colonoscopy History of herniorrhaphy History of endoscopic sinus surgery History of tonsillectomy History of adenoidectomy Family History Other No pertinent family history in first degree relatives Social History Smoking Status: Never smoker Second Hand Exposure: No; Do You Dip or Chew Tobacco: No; Hx Substance Use: No Preferred Language: Hungarian Communication Ability: Effective [employer] Required: No Beliefs That Will Affect Care: None Current Living Situation: Spouse Feels Safe at Home: Yes Assistive Devices: None Allergies Allergies Allergy/AdvReac Type Severity Reaction Status Date / Time No Known Drug Allergies Allergy Verified 05/06/25 10:10 Home Meds Home Medications Medication Instructions Recorded Confirmed cetirizine 10 mg tablet (Zyrtec) 10 mg PO QAM 12/28/18 05/06/25 docusate sodium 100 mg tablet 100 mg PO BID PRN Constipation 12/28/18 05/06/25 doxazosin 8 mg tablet 8 mg PO HS 12/28/18 05/06/25 methylphenidate HCl 10 mg tablet 10 mg PO QAM 12/28/18 05/06/25 (Ritalin) mirtazapine 15 mg tablet 15 mg PO HS 12/28/18 05/06/25 rosuvastatin 5 mg tablet (Crestor) 5 mg PO QPM 12/28/18 05/06/25 fluticasone propionate 50 1 spray intranasal HS PRN Allergy 10/29/23 05/06/25 mcg/actuation nasal Symptoms spray,suspension (Flonase Allergy Relief) pantoprazole 40 mg tablet,delayed 40 mg PO DAILYBB 10/29/23 05/06/25 release gabapentin 300 mg capsule 900 mg PO BID 12/20/23 05/06/25 lamotrigine 100 mg tablet 100 mg PO HS 12/20/23 05/06/25 (Lamictal) lamotrigine 25 mg tablet (Lamictal) 25 mg PO QAM 12/20/23 05/06/25 apixaban 5 mg tablet (Eliquis) 5 mg PO BID 05/06/25 05/06/25 mometasone 0.1 % topical solution 1 applic topical DAILY 05/06/25 05/06/25 oxcarbazepine 150 mg tablet 150 mg PO TID 05/06/25 05/06/25 Previous Rx's Medication Instructions Recorded metoprolol succinate 25 mg 25 mg PO QAM #90 tabs 12/28/24 tablet,extended release 24 hr Results & Data (ED) Vital Signs Vital Signs - 24 hr 05/06/25 09:03 05/06/25 09:03 05/06/25 09:13 Temperature 36.6 C Temperature Source Temporal Artery Scan Pulse Rate 202 H 200 H Pulse Rate [Apical] Respiratory Rate 18 Respiratory Effort / Characteristics Respiratory Depth Respiratory Pattern Blood Pressure 71/54 L Blood Pressure [Right Arm] Blood Pressure Mean 59 Blood Pressure Mean [Right Arm] Pulse Oximetry 97 Oxygen Delivery Method Room Air Sepsis Recent Fever Within 48 Hours No Sepsis New/Unexplained Change in Mental Status N/A Sepsis Action Taken by Nursing Physician Notified 05/06/25 09:14 05/06/25 09:20 05/06/25 09:22 Temperature Temperature Source Pulse Rate 201 H Pulse Rate [Apical] 201 H 121 H Respiratory Rate 16 18 Respiratory Effort / Characteristics Non-Labored Respiratory Depth Normal Normal Respiratory Pattern Regular Blood Pressure Blood Pressure [Right Arm] 96/69 L 104/68 Blood Pressure Mean Blood Pressure Mean [Right Arm] 78 80 Pulse Oximetry 93 93 Oxygen Delivery Method Room Air Room Air Sepsis Recent Fever Within 48 Hours Sepsis New/Unexplained Change in Mental Status Sepsis Action Taken by Nursing 05/06/25 09:24 05/06/25 09:28 05/06/25 09:33 Temperature Temperature Source Pulse Rate 108 H Pulse Rate [Apical] 107 H 91 H Respiratory Rate 17 14 Respiratory Effort / Characteristics Non-Labored Spontaneous Respiratory Depth Normal Normal Respiratory Pattern Regular Blood Pressure Blood Pressure [Right Arm] 94/64 L 109/72 Blood Pressure Mean Blood Pressure Mean [Right Arm] 74 84 Pulse Oximetry 93 94 Oxygen Delivery Method Room Air Room Air Sepsis Recent Fever Within 48 Hours Sepsis New/Unexplained Change in Mental Status Sepsis Action Taken by Nursing 05/06/25 09:40 05/06/25 09:47 05/06/25 09:48 Temperature Temperature Source Pulse Rate 105 H 102 H Pulse Rate [Apical] Respiratory Rate Respiratory Effort / Characteristics Respiratory Depth Respiratory Pattern Blood Pressure 93/68 L Blood Pressure [Right Arm] Blood Pressure Mean Blood Pressure Mean [Right Arm] Pulse Oximetry 96 Oxygen Delivery Method Room Air Sepsis Recent Fever Within 48 Hours Sepsis New/Unexplained Change in Mental Status Sepsis Action Taken by Nursing 05/06/25 10:06 05/06/25 10:17 05/06/25 11:40 Temperature Temperature Source Pulse Rate 104 H Pulse Rate [Apical] 89 86 Respiratory Rate 18 18 Respiratory Effort / Characteristics Non-Labored Spontaneous Non-Labored Spontaneous Respiratory Depth Normal Normal Respiratory Pattern Regular Regular Blood Pressure Blood Pressure [Right Arm] 110/83 108/83 Blood Pressure Mean Blood Pressure Mean [Right Arm] 92 91 Pulse Oximetry 95 94 Oxygen Delivery Method Room Air Room Air Sepsis Recent Fever Within 48 Hours Sepsis New/Unexplained Change in Mental Status Sepsis Action Taken by Nursing 05/06/25 12:00 Temperature Temperature Source Pulse Rate Pulse Rate [Apical] 96 H Respiratory Rate 16 Respiratory Effort / Characteristics Respiratory Depth Respiratory Pattern Blood Pressure Blood Pressure [Right Arm] 122/86 Blood Pressure Mean Blood Pressure Mean [Right Arm] 98 Pulse Oximetry Oxygen Delivery Method Sepsis Recent Fever Within 48 Hours Sepsis New/Unexplained Change in Mental Status Sepsis Action Taken by Nursing Laboratory Data 05/06/25 09:18 05/06/25 09:18 Lab Results 05/06/25 05/06/25 Range/Units 09:18 11:12 WBC 6.72 (4.8-10.8) K/ul RBC 4.76 (4.70-6.10) M/uL Hgb 15.1 (14.0-18.0) g/dl Hct 44.8 (42.0-52.0) % MCV 94.1 (80.0-100.0) fL MCH 31.7 (25.0-34.0) pg MCHC 33.7 (32.0-36.0) g/dL RDW Std Deviation 45.8 (36.4-46.3) fL RDW Coeff of Maria Del Carmen 13.2 (11.5-14.5) % Plt Count 181 (130-400) K/uL MPV 8.7 L (9.4-12.4) fL Neutrophils % (Manual) 45 % Lymphocytes % (Manual) 50 % Monocytes % (Manual) 3 % Eosinophils % (Manual) 2 % Neutrophils # (Manual) 3.02 (1.40-6.50) K/uL Total Absolute Neuts 3.02 (1.4-6.5) K/uL Lymphocytes # (Manual) 3.36 (1.2-3.4) K/uL Total Abs Lymphocytes 3.36 (1.2-3.4) K/uL Monocytes # (Manual) 0.20 (0.11-0.59) K/uL Eosinophils # (Manual) 0.13 (0-0.50) K/uL Polychromasia 1+ Sodium 139 (136-145) mmol/L Potassium 3.8 (3.5-5.1) mmol/L Chloride 103 (98-107) mmol/L Carbon Dioxide 27 (21-32) mmol/L Anion Gap 9 (3-11) BUN 15 (6-23) mg/dl Creatinine 0.99 (0.6-1.4) mg/dl Est Cr Clr Drug Dosing 81.9 ml/min eGFR 82.46 BUN/Creatinine Ratio 15.2 (10-20) Glucose 123 H (70-99(Fasting)) mg/dl Calcium 9.1 (8.6-10.3) mg/dl Magnesium 2.0 (1.7-2.4) mg/dl Total Bilirubin 0.5 (0.2-1.0) mg/dl AST 20 (13-39) U/L ALT 13 (7-52) U/L Alkaline Phosphatase 72 (34-104) U/L Troponin I High Sens 5.7 17.5 D (0-20) pg/ml Total Protein 7.0 (6.0-8.3) gm/dl Albumin 4.0 (3.4-5.0) gm/dl Globulin 3.0 (2.5-4.0) gm/dl Albumin/Globulin Ratio 1.3 (0.9-2) Lipase 25 (11-82) U/L Administered Medications Metoprolol Tartrate (Metoprolol Tartrate 1 Mg/Ml Vial) 5 mg IV Q5M PRN PRN Reason: Tachycardia Stop: 06/05/25 09:22 Last Admin: 05/06/25 09:25 Dose: 5 mg Documented By: ANA MARIA Admin: 05/06/25 09:20 Dose: 5 mg Documented By: ANA MARIA Discontinued Medications Sodium Chloride (Nss) 1,000 mls @ 999 mls/hr IV .Q1H1M ONE Stop: 05/06/25 10:23 Last Infusion: 05/06/25 10:27 Dose: Infused Documented By: ANA MARIA Admin: 05/06/25 09:27 Dose: 999 mls/hr Documented By: ANA MARIA Digoxin 250 mcg/ Syringe 10 mls @ 2 mls/min IV NOW STA Stop: 05/06/25 11:17 Last Admin: 05/06/25 11:40 Dose: 2 mls/min Documented By: YADIEL Metoprolol Tartrate (Metoprolol Tartrate 1 Mg/Ml Vial) Confirm Administered Dose 5 mg IV .STK-MED ONE Stop: 05/06/25 09:15 Last Admin: 05/06/25 09:33 Dose: Not Given Documented By: ANA MARIA Metoprolol Tartrate (Metoprolol Tartrate 1 Mg/Ml Vial) Confirm Administered Dose 5 mg IV .STK-MED ONE Stop: 05/06/25 09:20 Last Admin: 05/06/25 09:33 Dose: Not Given Documented By: ANA MARIA Imaging Data Radiologist's Impression: Chest X-Ray 05/06/25 09:15 XR chest 1V portable CLINICAL HISTORY: Chest pain, nonspecific COMPARISON STUDY: 06/18/2024 FINDINGS: Stable mild cardiomegaly without pulmonary vascular congestion. No consolidation or pleural effusion. No pneumothorax. IMPRESSION: No acute findings. ACT 112: Negative or not required by law. Electronically signed by: Delvis Connolly M.D. 05/06/2025 9:28 AM Discharge Plan Visit Data Chief Complaint: Chest Pain Stated Complaint: CHEST PAINS, A FIB ED Provider: Ryder David Discharge Problem: Wide-complex tachycardia, Atrial flutter with rapid ventricular response, Chest pain, Shortness of breath Condition: Serious Prescriptions Prescriptions: No Action metoprolol succinate 25 mg tablet extended release 24 hr 25 mg PO QAM Qty: 90 3RF lamotrigine [Lamictal] 25 mg tablet 25 mg PO QAM lamotrigine [Lamictal] 100 mg tablet 100 mg PO HS cetirizine [Zyrtec] 10 mg Tablet 10 mg PO QAM Rx Instructions: OTC not able to verify with pharmacy 10/29/23 methylphenidate HCl [Ritalin] 10 mg Tablet 10 mg PO QAM MDD 20mg/24hr Hold Instructions: Hold until follow-up with PCP, if heart rate well controlled and blood pressure is good can resume. Rx Instructions: May take additional later in the day if needed doxazosin 8 mg Tablet 8 mg PO HS Rx Instructions: filled jul 2023 mirtazapine 15 mg Tablet 15 mg PO HS docusate sodium 100 mg Tablet 100 mg PO BID PRN (Reason: Constipation) rosuvastatin [Crestor] 5 mg Tablet 5 mg PO QPM gabapentin 300 mg capsule 900 mg PO BID pantoprazole 40 mg tablet,delayed release (DR/EC) 40 mg PO DAILYBB fluticasone propionate [Flonase Allergy Relief] 50 mcg/actuation spray,suspension 1 spray intranasal HS PRN (Reason: Allergy Symptoms) oxcarbazepine 150 mg tablet 150 mg PO TID mometasone 0.1 % solution 1 applic TOPICAL DAILY Eliquis 5 mg Tablet 5 mg PO BID Discharge Problem: Chest pain Qualifiers: Chest pain type: unspecified Qualified Code(s): R07.9 - Chest pain, unspecified
[2025-05-06] MEDS: SODIUM CHLORIDE 0.9% 1,000 ML IV ONE (09:27)
--- NOTE | 2025-05-06 09:29 | XRay Report ---
XR chest 1V portable CLINICAL HISTORY: Chest pain, nonspecific COMPARISON STUDY: 06/18/2024 FINDINGS: Stable mild cardiomegaly without pulmonary vascular congestion. No consolidation or pleural effusion. No pneumothorax. IMPRESSION: No acute findings. ACT 112: Negative or not required by law. Electronically signed by: Delvis Connolly M.D. 05/06/2025 9:28 AM
[2025-05-06] MEDS: METOPROLOL TARTRATE 1 MG/ML VIAL IV ONE ×2 (09:33)
--- NOTE | 2025-05-06 09:53 | History & Physical Report ---
Date of Service May 06, 2025 Assessment & Plan (1) Atrial flutter with rapid ventricular response: (2) Bipolar disorder: (3) Chest pain: Plan This patient is a 70-year-old male with a history of paroxysmal atrial flutter recently started on Eliquis, bipolar disorder, ADHD, HLD, GERD, seasonal allergies, BPH, neuropathy, who presents to the ED with crushing chest pain and rapid atrial flutter. #Paroxysmal atrial flutter with rapid ventricular response/chest pain /hypotension-remains in atrial flutter but rates are better controlled after IV Lopressor and IV fluids. Initial troponin negative but would expect it to trend upward given how fast he was going with his rates. I discussed his care with cardiology-based on his symptoms and Apple Watch, he most likely has been in continuous atrial flutter probably just for a little over 24 hours prior to starting Eliquis. - Admit to PCU for telemetry monitoring - Start amiodarone drip - Continue IV Lopressor as needed for tachycardia - Continue home metoprolol 25 mg daily-his soft blood pressures prohibit increased dose - Give digoxin 250 mcg IV x 1 and give more later if needed - Appreciate cardiology consultation - Trend serial troponin - Continue Eliquis 5 Mg p.o. twice daily - Continue to follow BMP and magnesium and keep electrolytes optimal #Bipolar disorder/ADHD-no acute issues - Hold home methylphenidate - Continue home Lamictal, mirtazapine - He is on oxcarbazepine for trigeminal neuralgia #HLD-no acute issues - Continue home rosuvastatin #GERD -no acute issues - Continue PPI #Seasonal allergies-no acute issues - Continue Zyrtec #BPH-no acute issues - Monitor for urinary retention - Continue home doxazosin #Neuropathy-no acute issues - Continue home gabapentin DVT prophylaxis-Eliquis Disposition-admit to PCU History of Present Illness Chief Complaint: Chest pains, heart racing Primary Care Provider: Marty Uribe This patient is a 70-year-old male with a history of paroxysmal atrial flutter recently started back on Eliquis, bipolar disorder, ADHD, HLD, GERD, seasonal allergies, BPH, neuropathy, who presents to the ED with crushing chest pain and a racing heartbeat. He was recently hospitalized in [place] this past weekend for rapid atrial flutter after he noticed on his Apple Watch that his heart rate was going 180-200 bpm. He was treated there with IV diltiazem and had improvement in his heart rate down to the low 100s and was sent home. This morning his heart rate was in the 200s and he almost passed out every time he tried to stand up from low blood pressure. He began having chest burning and came to the hospital. He took his home metoprolol and started back on Eliquis yesterday which she had at home from previous. In the ED, his heart rate was 200 with a wide-complex tachycardia with a baseline known RBBB. His blood pressure was 71 systolic. He was given a liter of normal saline and 2 doses of IV Lopressor 5 mg x 1 with improvement in his heart rate to the 120s and blood pressure improved up to 93 systolic. His chest pain was gone once his heart rate was controlled. He will be admitted for rapid atrial flutter. Allergies Allergy/AdvReac Type Severity Reaction Status Date / Time No Known Drug Allergies Allergy Verified 05/06/25 10:10 Home Medications Medication Instructions Recorded Confirmed Type cetirizine 10 mg tablet (Zyrtec) 10 mg PO QAM 12/28/18 05/06/25 History docusate sodium 100 mg tablet 100 mg PO BID PRN Constipation 12/28/18 05/06/25 History doxazosin 8 mg tablet 8 mg PO HS 12/28/18 05/06/25 History methylphenidate HCl 10 mg tablet 10 mg PO QAM 12/28/18 05/06/25 History (Ritalin) mirtazapine 15 mg tablet 15 mg PO HS 12/28/18 05/06/25 History rosuvastatin 5 mg tablet (Crestor) 5 mg PO QPM 12/28/18 05/06/25 History fluticasone propionate 50 1 spray intranasal HS PRN Allergy 10/29/23 05/06/25 History mcg/actuation nasal Symptoms spray,suspension (Flonase Allergy Relief) pantoprazole 40 mg tablet,delayed 40 mg PO DAILYBB 10/29/23 05/06/25 History release gabapentin 300 mg capsule 900 mg PO BID 12/20/23 05/06/25 History lamotrigine 100 mg tablet 100 mg PO HS 12/20/23 05/06/25 History (Lamictal) lamotrigine 25 mg tablet (Lamictal) 25 mg PO QAM 12/20/23 05/06/25 History metoprolol succinate 25 mg 25 mg PO QAM #90 tabs 12/28/24 05/06/25 Rx tablet,extended release 24 hr apixaban 5 mg tablet (Eliquis) 5 mg PO BID 05/06/25 05/06/25 History mometasone 0.1 % topical solution 1 applic topical DAILY 05/06/25 05/06/25 History oxcarbazepine 150 mg tablet 150 mg PO TID 05/06/25 05/06/25 History Past Med/Surg History Problem List (Updated 05/06/25 @ 13:55 by Ryder David DO) Shortness of breath (Acute) Chest pain (Acute) Wide-complex tachycardia (Acute) Atrial flutter Atrial flutter with rapid ventricular response (Acute 10/2023) Sleep apnea NO DEVICE GERD (gastroesophageal reflux disease) BPH (benign prostatic hyperplasia) Attention deficit disorder (ADD) Wide-complex tachycardia Atrial fibrillation (Acute) Chronic sinusitis Bipolar disorder (Chronic) Hyperlipidemia (Chronic) Medical History Anemia MILD Bipolar disorder Depression Anxiety Hyperlipidemia Environmental allergies Surgical History S/P hernia repair S/P repair of hydrocele History of surgery AN INFANT-pectus excavatum REPAIR History of esophagogastroduodenoscopy (EGD) History of colonoscopy History of herniorrhaphy History of endoscopic sinus surgery History of tonsillectomy History of adenoidectomy Family History Other No pertinent family history in first degree relatives Social History Smoking Status: Never smoker Second Hand Exposure: No; Do You Dip or Chew Tobacco: No; Hx Alcohol Use: No Hx Substance Use: No Preferred Language: Iraqi Communication Ability: Effective Certified Nursing Assistant Instructor Required: No Beliefs That Will Affect Care: None Current Living Situation: Spouse Feels Safe at Home: Yes Assistive Devices: None Review of Systems Review of Systems: All systems reviewed & are unremarkable except as noted in HPI & below Physical Exam Constitutional: WD/WN, vitals as above Eyes: PERRL, conjunctivae normal, anicteric sclerae ENMT: external ear and nose normal, oropharynx normal Neck: trachea midline, no thyromegaly Respiratory: normal respiratory effort, lungs clear to auscultation Cardiovascular: Rate/Rhythm: + tachycardic and + irregularly irregular Heart Sounds: no murmur Extremities: + edema (1+ edema of ankles bilaterally) Chest (Breasts): Chest: normal inspection of chest Gastrointestinal (Abdomen): normal bowel sounds, soft, nontender, no hepatosplenomegaly Musculoskeletal: Extremities: extremities normal to inspection; no cyanosis and no clubbing Skin: no rashes, warm and dry Neurologic: moves all extremities and awake; no focal motor deficits Psychiatric: A+Ox3, euthymic affect Results & Data Results & Data Vital Signs (Past 12 Hours) Vital Signs Temp Pulse Pulse Resp BP BP Pulse Ox 05/06/25 09:48 102 H 05/06/25 09:47 105 H 93/68 L 05/06/25 09:40 96 05/06/25 09:33 91 H 14 109/72 94 05/06/25 09:28 107 H 17 94/64 L 93 05/06/25 09:24 108 H 05/06/25 09:22 121 H 18 104/68 93 05/06/25 09:20 201 H 05/06/25 09:14 201 H 16 96/69 L 93 05/06/25 09:13 200 H 05/06/25 09:03 05/06/25 09:03 36.6 C 202 H 18 71/54 L 97 O2 Del Method 05/06/25 09:48 05/06/25 09:47 05/06/25 09:40 Room Air 05/06/25 09:33 Room Air 05/06/25 09:28 Room Air 05/06/25 09:24 05/06/25 09:22 Room Air 05/06/25 09:20 05/06/25 09:14 Room Air 05/06/25 09:13 05/06/25 09:03 Room Air 05/06/25 09:03 Laboratory Results CBC, CMP, troponin, magnesium, TSH reviewed Diagnostic Findings Chest x-ray image personally reviewed by me and agree with the following report: Chest X-Ray 05/06/25 09:15 XR chest 1V portable CLINICAL HISTORY: Chest pain, nonspecific COMPARISON STUDY: 06/18/2024 FINDINGS: Stable mild cardiomegaly without pulmonary vascular congestion. No consolidation or pleural effusion. No pneumothorax. IMPRESSION: No acute findings. ECG Additional Comments: ECG on 05/06/2025 at 9:12 AM with wide-complex tachycardia, rate 202, RBBB, no acute ischemic changes Code Status & VTE Plan Code Status Full code VTE Prophylaxis Plan VTE Prophylaxis will be ordered: Yes PG Care Time/CCT Total # of Minutes Spent Total Time Spent with Patient: Total time spent is greater than 50% in coordination of care (as documented) at patient's floor/unit and/or counseling patient: Coding Level of Care Code 12272 INT INP/OBS CARE 3/75MIN Diagnoses Atrial flutter with rapid ventricular response I48.92 Bipolar disorder F31.9 Chest pain R07.9 Chest pain type: unspecified (3) Chest pain Chest pain type: unspecified Qualified Code(s): R07.9 - Chest pain, unspecified
[2025-05-06 09:57] LABS: Hematocrit (blood only) 44.8 % (42.0-52.0); Hemoglobin 15.1 g/dl (14.0-18.0); Mean Corpuscular Hemoglobin 31.7 pg (25.0-34.0); Mean Corpuscular Volume 94.1 fL (80.0-100.0); Platelet Count 181 K/uL (130-400); RDW Standard Deviation 45.8 fL (36.4-46.3); Red Blood Count 4.76 M/uL (4.70-6.10); White Blood Count 6.72 K/ul (4.8-10.8)
[2025-05-06 09:59] LABS: Alanine Aminotransferase 13.0 U/L (7-52); Albumin Globulin Ratio 1.3 (0.9-2); Alkaline Phosphatase 72.0 U/L (34-104); Anion Gap 9.0 (3-11); Bilirubin,Total 0.5 mg/dl (0.2-1.0); Blood Urea Nitrogen 15.0 mg/dl (6-23); Calcium 9.1 mg/dl (8.6-10.3); Carbon Dioxide 27.0 mmol/L (21-32); Chloride 103.0 mmol/L (98-107); Creatinine Clr Calc Pharmacy 81.9 ml/min; Globulin 3.0 gm/dl (2.5-4.0); Glucose 123.0 mg/dl (70-99(Fasting)); Lipase 25.0 U/L (11-82); Potassium 3.8 mmol/L (3.5-5.1); Sodium 139.0 mmol/L (136-145); Total Protein 7.0 gm/dl (6.0-8.3)
[2025-05-06 10:47] LABS: ALC (manual) 3.36 K/uL (1.2-3.4); ANC (manual) 3.02 K/uL (1.4-6.5); Polychromasia 1+
[2025-05-06] MEDS: DIGOXIN 250 MCG in SYRINGE 9 ML IV STA (11:40)
--- NOTE | 2025-05-06 12:16 | Electrocardiogram Report ---
Test Reason : Blood Pressure : */* mmHG Vent. Rate : 202 BPM Atrial Rate : * BPM P-R Int : * ms QRS Dur : 158 ms QT Int : 252 ms P-R-T Axes : * -60 -26 degrees QTcB Int : 462 ms Wide QRS tachycardia Left axis deviation Right bundle branch block Possible Inferior infarct , age undetermined Abnormal ECG When compared with ECG of 31-Oct-2023 07:38, Significant changes have occurred Confirmed by Tai Valencia ([id number]) on 05/06/2025 12:16:42 PM Referred By: REFERRED SELF Confirmed By: Tai Valencia
--- NOTE | 2025-05-06 12:21 | Electrocardiogram Report ---
Test Reason : Blood Pressure : */* mmHG Vent. Rate : 103 BPM Atrial Rate : 103 BPM P-R Int : 212 ms QRS Dur : 102 ms QT Int : 364 ms P-R-T Axes : * 267 7 degrees QTcB Int : 476 ms Probable Atrial flutter with 2 to 1 block Incomplete right bundle branch block Right ventricular hypertrophy with repolarization abnormality Marked ST abnormality, possible inferior subendocardial injury Abnormal ECG When compared with ECG of 06-May-2025 09:12, (unconfirmed) Vent. rate has decreased by 99 bpm Confirmed by Tai Valencia ([id number]) on 05/06/2025 12:20:47 PM Referred By: REFERRED SELF Confirmed By: Tai Valencia
[2025-05-06] MEDS ORDERED: FLUTICASONE PROPIONATE NA SPR 16 GM BTL NAE PRN (14:04)
[2025-05-06] MEDS ORDERED: ONDANSETRON INJ 2 MG/ML 2 ML VIAL IV PRN (14:04)
[2025-05-06] MEDS ORDERED: ACETAMINOPHEN 325 MG TAB PO PRN (14:04)
[2025-05-06] MEDS ORDERED: DOCUSATE SODIUM 100 MG CAP PO PRN (14:09)
--- NOTE | 2025-05-06 14:10 | Cardiology Consultation ---
Date of Consultation May 06, 2025 Assessment & Plan (1) Atrial flutter with rapid ventricular response: -This represents a second episode in 1-1/2 years. -He started Eliquis approximately 36 hours after his dysrhythmia started. -Very symptomatic with a rapid ventricular response. -Recommend antiarrhythmic therapy prior to cardioversion. -Would start intravenous amiodarone. -Consider electrical cardioversion Tuesday if necessary. -Continue Eliquis 5 Mg twice daily. (2) Hyperlipidemia: - Continue rosuvastatin. History of Present Illness Attending Physician: Viki Canchola MD History of Present Illness Mr. Costello is a 70-year-old male admitted earlier today with atrial flutter and a rapid ventricular response. This consultation was ordered to assist in his cardiac management. Of note, the patient has been seen by Dr. Sood in the past. The patient was in his usual state of health until Tuesday morning. While visiting his daughter and grandchildren in [facility] [place], he had the abrupt onset of palpitations, chest discomfort, and a heart rate in the 200 bpm range. He called 911 and was evaluated in an [facility] hospital. He was noted to be in atrial flutter with a rapid ventricular response. He was given intravenous hydration and oral metoprolol. His heart rate decreased to less than 100 and he was discharged. He was given a prescription to start Eliquis 5 Mg twice daily. He did start Eliquis on his return Tuesday evening. He did take an additional dose this morning. Again, he had the abrupt onset of palpitations, chest discomfort, and a rapid heart rate. He proceeded to our emergency room for further care. On arrival here, he was noted to be in a wide-complex tachycardia (atrial flutter with 2-1 AV conduction and a complete right bundle branch block). He was given intravenous metoprolol and titration and his heart rate decreased to 100 bpm. The patient explains that he feels dramatically improved at this time. We have discussed a trial of antiarrhythmic therapy and a possible elective, electrical cardioversion if necessary. The patient had a similar episode back in October 2023 which did require a cardioversion. No antiarrhythmics were started at that time. In agreement between the patient and Dr. Sood discontinued Eliquis last year. Currently, patient is resting comfortably in bed and without complaints. Past medical and surgical history 1. Hypertension 2. Hypercholesterolemia 3. Paroxysmal atrial flutterFebruary 2023 4. Right bundle branch block 5. GERD 6. BPH 7. Bipolar disorder 8. Attention deficit disorder 9. Obstructive sleep apnea 10. Pectus excavatum repair in childhood 11. Inguinal hernia repair 12. Tonsillectomy and adenoidectomy Social history and lives with his Retired from [employer] No tobacco Occasional alcohol Family history Noncontributory Review of systems A 10 point review of system was undertaken and negative except that described above. Allergies Allergy/AdvReac Type Severity Reaction Status Date / Time No Known Drug Allergies Allergy Verified 05/06/25 10:10 Home Medications Medication Instructions Recorded Confirmed Type cetirizine 10 mg tablet (Zyrtec) 10 mg PO QAM 12/28/18 05/06/25 History docusate sodium 100 mg tablet 100 mg PO BID PRN Constipation 12/28/18 05/06/25 History doxazosin 8 mg tablet 8 mg PO HS 12/28/18 05/06/25 History methylphenidate HCl 10 mg tablet 10 mg PO QAM 12/28/18 05/06/25 History (Ritalin) mirtazapine 15 mg tablet 15 mg PO HS 12/28/18 05/06/25 History rosuvastatin 5 mg tablet (Crestor) 5 mg PO QPM 12/28/18 05/06/25 History fluticasone propionate 50 1 spray intranasal HS PRN Allergy 10/29/23 05/06/25 History mcg/actuation nasal Symptoms spray,suspension (Flonase Allergy Relief) pantoprazole 40 mg tablet,delayed 40 mg PO DAILYBB 10/29/23 05/06/25 History release gabapentin 300 mg capsule 900 mg PO BID 12/20/23 05/06/25 History lamotrigine 100 mg tablet 100 mg PO HS 12/20/23 05/06/25 History (Lamictal) lamotrigine 25 mg tablet (Lamictal) 25 mg PO QAM 12/20/23 05/06/25 History metoprolol succinate 25 mg 25 mg PO QAM #90 tabs 12/28/24 05/06/25 Rx tablet,extended release 24 hr apixaban 5 mg tablet (Eliquis) 5 mg PO BID 05/06/25 05/06/25 History mometasone 0.1 % topical solution 1 applic topical DAILY 05/06/25 05/06/25 History oxcarbazepine 150 mg tablet 150 mg PO TID 05/06/25 05/06/25 History Patient History Medical History Anemia MILD Bipolar disorder Depression Anxiety Hyperlipidemia Environmental allergies Surgical History S/P hernia repair S/P repair of hydrocele History of surgery AN INFANT-pectus excavatum REPAIR History of esophagogastroduodenoscopy (EGD) History of colonoscopy History of herniorrhaphy History of endoscopic sinus surgery History of tonsillectomy History of adenoidectomy Family History Other No pertinent family history in first degree relatives Social History Smoking Status: Never smoker Second Hand Exposure: No; Do You Dip or Chew Tobacco: No; Hx Substance Use: No Preferred Language: Faroese Communication Ability: Effective Manager Instrumentation Required: No Beliefs That Will Affect Care: None Current Living Situation: Spouse Feels Safe at Home: Yes Assistive Devices: None Physical Exam Physical Exam: In general this is a well-developed well-nourished white male in no acute distress. HEENT exam is negative. Neck reveals normal carotid upstrokes without bruits. Jugular venous pressure is flat at 90. There is no thyromegaly. Cardiovascular exam reveals a regular rhythm with distant heart sounds. No evidence of murmurs.. Lungs are clear without rales, rhonchi, or wheezes. Abdomen is soft without bruits. Extremities reveal intact radial artery and posterior tibial pulses bilaterally. There is no peripheral edema. Results & Data Vital Signs (Past 12 Hours) Vital Signs Temp Pulse Pulse Resp BP BP Pulse Ox 05/06/25 12:00 96 H 16 122/86 05/06/25 11:40 104 H 05/06/25 10:17 86 18 108/83 94 05/06/25 10:06 89 18 110/83 95 05/06/25 09:48 102 H 05/06/25 09:47 105 H 93/68 L 05/06/25 09:40 96 05/06/25 09:33 91 H 14 109/72 94 05/06/25 09:28 107 H 17 94/64 L 93 05/06/25 09:24 108 H 05/06/25 09:22 121 H 18 104/68 93 05/06/25 09:20 201 H 05/06/25 09:14 201 H 16 96/69 L 93 05/06/25 09:13 200 H 05/06/25 09:03 05/06/25 09:03 36.6 C 202 H 18 71/54 L 97 O2 Del Method 05/06/25 12:00 05/06/25 11:40 05/06/25 10:17 Room Air 05/06/25 10:06 Room Air 05/06/25 09:48 05/06/25 09:47 05/06/25 09:40 Room Air 05/06/25 09:33 Room Air 05/06/25 09:28 Room Air 05/06/25 09:24 05/06/25 09:22 Room Air 05/06/25 09:20 05/06/25 09:14 Room Air 05/06/25 09:13 05/06/25 09:03 Room Air 05/06/25 09:03 Laboratory Results CBC and PRP are unremarkable. Magnesium level is normal at 2.0. Initial high- sensitivity troponin was 5.7 with a follow-up value of 17.5. Diagnostic Findings Initial EKG noted atrial flutter with 2-1 AV conduction to 200 bpm. There is a complete right bundle branch block. Follow-up tracing notes atrial flutter with 2-1 AV conduction and a ventricular sponsor of 120 bpm. There is a complete right bundle branch block. Chest x-ray notes cardiomegaly. PG Care Time/CCT Total # of Minutes Spent Total Time Spent with Patient: Total time spent is greater than 50% in coordination of care (as documented) at patient's floor/unit and/or counseling patient: Coding Level of Care Code 78835 INT INP/OBS CARE 3/75MIN Diagnoses Atrial flutter with rapid ventricular response I48.92 Hyperlipidemia E78.5
[2025-05-06] MEDS ORDERED: 0.2 MICRON FILTER SET 1 EACH IV STA (14:34)
[2025-05-06] MEDS ORDERED: STAT IV Infusion **Titration per Protocol STA (14:34)
[2025-05-06] MEDS ORDERED: AMIODARONE IV BOLUS & DRIP IV STA (14:34)
[2025-05-06] MEDS: AMIODARONE / D5W 150 MG/100 ML BAG IV STA (14:45)
[2025-05-06] MEDS: AMIODARONE / D5W 360 MG/200 ML BAG IV ONE (15:12)
[2025-05-06] MEDS: AMIODARONE / D5W 360 MG/200 ML BAG IV SCH (19:00)
[2025-05-06] MEDS: lamoTRIgine 25 MG TAB PO SCH (21:08)
[2025-05-06] MEDS: MIRTAZAPINE TAB 15 MG TAB PO SCH (21:08)
[2025-05-06] MEDS: APIXABAN 5 MG TABLET PO SCH (21:09)
[2025-05-06] MEDS: GABAPENTIN 300 MG CAP PO SCH (21:10)
[2025-05-06] MEDS: lamoTRIgine 100 MG TAB PO SCH (21:11)
[2025-05-06] MEDS: ROSUVASTATIN CALCIUM 5 MG TAB PO SCH (21:11)
[2025-05-07 07:42] LABS: Anion Gap 4.0 (3-11); Blood Urea Nitrogen 15.0 mg/dl (6-23); Calcium 8.4 mg/dl (8.6-10.3); Carbon Dioxide 30.0 mmol/L (21-32); Chloride 108.0 mmol/L (98-107); Creatinine Clr Calc Pharmacy 87.2 ml/min; Glucose 88.0 mg/dl (70-99(Fasting)); Magnesium 2.0 mg/dl (1.7-2.4); Potassium 4.0 mmol/L (3.5-5.1); Sodium 142.0 mmol/L (136-145)
[2025-05-07 07:58] LABS: Thyroid Stimulating Hormone 2.695 uIu/ml (0.300-4.500)
[2025-05-07] MEDS: CETIRIZINE HCL 10 MG TABLET PO SCH (09:36)
[2025-05-07] MEDS: METOPROLOL SUCC 25MG EXT REL TAB PO SCH (09:36)
[2025-05-07] MEDS: TRIAMCINOLONE ACET 0.1% CR 15 GM TUBE TOP SCH (09:37)
--- NOTE | 2025-05-07 13:08 | Cardiology Progress Note ---
Date of Service May 07, 2025 Assessment & Plan (1) Atrial flutter with rapid ventricular response: Plan: -Remains in atrial flutter with a ventricular sponsor approximately 100 bpm. -He is tolerating intravenous amiodarone without difficulty. -Continue Eliquis at 5 mg twice daily. -Electrical cardioversion tomorrow if he remains in atrial flutter. -Please make n.p.o. after midnight. (2) Hyperlipidemia: Plan: -Continue rosuvastatin. Admission and Anticipated Discharge Date Admission Date: May 06, 2025 Subjective The patient is resting comfortably in bed without complaints of chest pain, dyspnea, or palpitations. We have discussed proceeding with an electrical cardioversion tomorrow if he remains in atrial flutter. Physical Exam Physical Exam: In general this is a well-developed well-nourished white male in no acute distress. HEENT exam is negative. Neck reveals normal carotid upstrokes without bruits. No JVD. There is no thyromegaly. Cardiovascular exam reveals a regular rhythm with distant heart sounds. No evidence of murmurs. Lungs are clear without rales, rhonchi, or wheezes. Abdomen is soft without bruits. Extremities reveal intact radial artery and posterior tibial pulses bilaterally. There is no peripheral edema. Results & Data Vital Signs (Past 12 Hours) Vital Signs Temp Pulse Pulse Resp BP Pulse Ox O2 Del Method 05/07/25 12:41 36.4 C L 111 H 16 102/57 L 93 Room Air 05/07/25 08:00 36.6 C 108 H 16 119/60 96 Room Air 05/07/25 07:47 108 H Diagnostic Findings cafeteria monitor notes atrial flutter with a ventricular response of approximately 100 bpm. PG Care Time/CCT Total # of Minutes Spent Total Time Spent with Patient: Total time spent is greater than 50% in coordination of care (as documented) at patient's floor/unit and/or counseling patient: Coding Level of Care Code 90371 SUB INP/OBS CARE 3/50MIN Diagnoses Atrial flutter with rapid ventricular response I48.92 Hyperlipidemia E78.5
--- NOTE | 2025-05-07 14:41 | Hospitalist Progress Note ---
Date of Service May 07, 2025 Assessment & Plan (1) Atrial flutter with rapid ventricular response: (2) Bipolar disorder: (3) Chest pain: Plan This patient is a 70-year-old male with a history of paroxysmal atrial flutter recently started on Eliquis, bipolar disorder, ADHD, HLD, GERD, seasonal allergies, BPH, neuropathy, who presents to the ED with crushing chest pain and rapid atrial flutter. #Paroxysmal atrial flutter with rapid ventricular response/chest pain /hypotension-remains in atrial flutter but rates are better controlled after IV Lopressor and IV fluids. Initial troponin negative but would expect it to trend upward given how fast he was going with his rates. I discussed his care with cardiology-based on his symptoms and [employer] Watch, he most likely has been in continuous atrial flutter probably just for a little over 24 hours prior to starting Eliquis and therefore safe to chemically cardiovert. Remains in Aflutter with rates 100-110s - continued stay PCU for telemetry monitoring - Cont amiodarone drip - Continue IV Lopressor as needed for tachycardia - Continue home metoprolol 25 mg daily-his soft blood pressures prohibit increased dose - Gave one dose digoxin 250 mcg IV x 1 on day of admission but hold off on further doses - Appreciate cardiology consultation-plan for cardioversion electrically on AM of 05/08 if not converted - Trended serial troponin-peaked at 37 - Continue Eliquis 5 Mg p.o. twice daily - Continue to follow BMP and magnesium and keep electrolytes optimal-normal today #Bipolar disorder/ADHD-no acute issues - Hold home methylphenidate - Continue home Lamictal, mirtazapine - He is on oxcarbazepine for trigeminal neuralgia #HLD-no acute issues - Continue home rosuvastatin #GERD -no acute issues - Continue PPI #Seasonal allergies-no acute issues - Continue Zyrtec #BPH-no acute issues - Monitor for urinary retention - Continue home doxazosin #Neuropathy-no acute issues - Continue home gabapentin DVT prophylaxis-Eliquis Disposition-cont stay on PCU Admission and Anticipated Discharge Date Admission Date: May 07, 2025 Subjective Pt still feels a little lightheaded at times, no ches tpain. Tele remains with Aflutter 100s to 110s Physical Exam Constitutional: WD/WN, vitals as above Neck: trachea midline, no thyromegaly Respiratory: normal respiratory effort, lungs clear to auscultation Cardiovascular: Rate/Rhythm: + tachycardic and + irregularly irregular Heart Sounds: no murmur Chest (Breasts): Chest: normal inspection of chest Musculoskeletal: Extremities: extremities normal to inspection; no cyanosis and no clubbing Skin: no rashes, warm and dry Neurologic: moves all extremities and awake; no focal motor deficits Psychiatric: A+Ox3, euthymic affect Results & Data Results & Data Vital Signs (Past 12 Hours) Vital Signs Temp Pulse Pulse Resp BP Pulse Ox O2 Del Method 05/07/25 14:21 110 H 05/07/25 12:41 36.4 C L 111 H 16 102/57 L 93 Room Air 05/07/25 08:00 36.6 C 108 H 16 119/60 96 Room Air 05/07/25 07:47 108 H Laboratory Results BMP, mag reviewed PG Care Time/CCT Total # of Minutes Spent Total Time Spent with Patient: Total time spent is greater than 50% in coordination of care (as documented) at patient's floor/unit and/or counseling patient: Coding Level of Care Code 99866 SUB INP/OBS CARE 2/35MIN Diagnoses Atrial flutter with rapid ventricular response I48.92 Bipolar disorder F31.9 Chest pain R07.9 Chest pain type: unspecified (3) Chest pain Chest pain type: unspecified Qualified Code(s): R07.9 - Chest pain, unspecified
[2025-05-07] MEDS ORDERED: Nursing to Pharmacy Communication SCH (19:00)
[2025-05-08 09:40] LABS: Hematocrit (blood only) 40.6 % (42.0-52.0); Hemoglobin 13.6 g/dl (14.0-18.0); Immature Granulocytes # (auto) 0.02 K/uL (0.01-0.20); Immature Granulocytes % (auto) 0.4 %; Mean Corpuscular Hemoglobin 31.4 pg (25.0-34.0); Mean Corpuscular Volume 93.8 fL (80.0-100.0); Platelet Count 160 K/uL (130-400); RDW Standard Deviation 45.9 fL (36.4-46.3); Red Blood Count 4.33 M/uL (4.70-6.10); White Blood Count 5.70 K/ul (4.8-10.8)
[2025-05-08 09:54] LABS: Anion Gap 4.0 (3-11); Blood Urea Nitrogen 13.0 mg/dl (6-23); Carbon Dioxide 31.0 mmol/L (21-32); Chloride 104.0 mmol/L (98-107); Creatinine Clr Calc Pharmacy 84.4 ml/min; Potassium 3.8 mmol/L (3.5-5.1); Sodium 139.0 mmol/L (136-145)
[2025-05-08 09:55] LABS: Calcium 8.6 mg/dl (8.6-10.3); Glucose 99.0 mg/dl (70-99(Fasting)); Magnesium 1.9 mg/dl (1.7-2.4)
--- NOTE | 2025-05-08 10:19 | Anesthesiology Consultation ---
Date of Service May 08, 2025 Assessment & Plan Chart Review Chart Review: Acceptable Risk for Surgery Consults Requested none History Surgery Operation Date: 05/08/25 11:00 Proposed Procedures p Cardioversion w/Anesthesia Sedation - Tai Valencia MD Height/Weight Height: 6 ft 2 in Weight: 83.5 kg Allergies Allergy/AdvReac Type Severity Reaction Status Date / Time No Known Drug Allergies Allergy Verified 05/06/25 10:10 Medications Home Medications Medication Instructions Recorded Confirmed Last Taken cetirizine 10 mg tablet (Zyrtec) 10 mg PO QAM 12/28/18 05/06/25 05/06/25 docusate sodium 100 mg tablet 100 mg PO BID PRN Constipation 12/28/18 05/06/25 12/10/20 doxazosin 8 mg tablet 8 mg PO HS 12/28/18 05/06/25 05/05/25 methylphenidate HCl 10 mg tablet 10 mg PO QAM 12/28/18 05/06/25 05/06/25 (Ritalin) mirtazapine 15 mg tablet 15 mg PO HS 12/28/18 05/06/25 05/05/25 rosuvastatin 5 mg tablet (Crestor) 5 mg PO QPM 12/28/18 05/06/25 05/05/25 fluticasone propionate 50 1 spray intranasal HS PRN Allergy 10/29/23 05/06/25 Unknown mcg/actuation nasal Symptoms spray,suspension (Flonase Allergy Relief) pantoprazole 40 mg tablet,delayed 40 mg PO DAILYBB 10/29/23 05/06/25 05/06/25 release gabapentin 300 mg capsule 900 mg PO BID 12/20/23 05/06/25 05/06/25 lamotrigine 100 mg tablet 100 mg PO HS 12/20/23 05/06/25 05/05/25 (Lamictal) lamotrigine 25 mg tablet (Lamictal) 25 mg PO QAM 12/20/23 05/06/25 05/06/25 metoprolol succinate 25 mg 25 mg PO QAM #90 tabs 12/28/24 05/06/25 05/06/25 tablet,extended release 24 hr apixaban 5 mg tablet (Eliquis) 5 mg PO BID 05/06/25 05/06/25 05/06/25 08:30 mometasone 0.1 % topical solution 1 applic topical DAILY 05/06/25 05/06/25 05/05/25 oxcarbazepine 150 mg tablet 150 mg PO TID 05/06/25 05/06/25 05/06/25 Active Medications Generic Name Dose Route Start Last Admin Trade Name Freq PRN Reason Stop Dose Admin Apixaban 5 mg 05/06/25 21:00 05/08/25 08:44 Apixaban 5 Mg Tablet PO 06/05/25 20:59 5 mg BID SERAFIN Administration Cetirizine HCl 10 mg 05/07/25 09:00 05/08/25 08:44 Cetirizine Hcl 10 Mg Tablet PO 06/06/25 08:59 10 mg QAM SERAFIN Administration Doxazosin Mesylate 8 mg 05/06/25 21:00 05/07/25 20:25 Doxazosin Mesylate 4 Mg Tab PO 06/05/25 20:59 8 mg HS SERAFIN Administration Gabapentin 900 mg 05/06/25 21:00 05/08/25 08:44 Gabapentin 300 Mg Cap PO 06/05/25 20:59 900 mg BID SERAFIN Administration Amiodarone HCl/Dextrose 360 mg in 200 mls @ 16.667 mls/hr 05/06/25 20:45 05/08/25 09:57 Nexterone / D5w IV 06/05/25 20:44 Infused .Q12H SERAFIN Infusion 0.5 MG/MIN Lamotrigine 25 mg 05/06/25 21:00 05/07/25 20:26 Lamotrigine 25 Mg Tab PO 06/05/25 20:59 25 mg HS SERAFIN Administration Protocol Lamotrigine 100 mg 05/06/25 21:00 05/07/25 20:27 Lamotrigine 100 Mg Tab PO 06/05/25 20:59 100 mg HS SERAFIN Administration Protocol Metoprolol Succinate 25 mg 05/07/25 09:00 05/08/25 09:29 Metoprolol Succ 25mg Ext Rel Tab PO 06/06/25 08:59 Not Given QAM SERAFIN Metoprolol Tartrate 5 mg 05/06/25 09:23 05/06/25 09:25 Metoprolol Tartrate 1 Mg/Ml Vial IV 06/05/25 09:22 5 mg Q5M PRN Administration Tachycardia Mirtazapine 15 mg 05/06/25 21:00 05/07/25 20:31 Mirtazapine Tab 15 Mg Tab PO 06/05/25 20:59 15 mg HS SERAFIN Administration Oxcarbazepine 150 mg 05/06/25 14:04 05/08/25 08:44 Oxcarbazepine 150 Mg Tablet PO 06/05/25 14:03 150 mg TID SERAFIN Administration Pantoprazole Sodium 40 mg 05/08/25 09:00 05/08/25 08:44 Pantoprazole 40 Mg Tab PO 06/06/25 06:29 40 mg DAILY SERAFIN Administration Rosuvastatin Calcium 5 mg 05/06/25 21:00 05/07/25 20:27 Rosuvastatin Calcium 5 Mg Tab PO 06/05/25 20:59 5 mg QPM SERAFIN Administration Triamcinolone Acetonide 1 appln 05/07/25 09:00 05/08/25 08:44 Triamcinolone Acet 0.1% Cr 15 Gm Tube TOP 06/06/25 08:59 Not Given DAILY SERAFIN NPO Date Last Intake of Fluids: 05/08/25 Time Last Intake of Fluids: 08:00 Last Intake of Fluids Comment: sip with meds Date Last Intake of Solids: 05/07/25 Past Medical History Medical History Anemia MILD Bipolar disorder Depression Anxiety Hyperlipidemia Environmental allergies Past Family History Family History Other No pertinent family history in first degree relatives Past Surgical History Surgical History S/P hernia repair S/P repair of hydrocele History of surgery AN INFANT-pectus excavatum REPAIR History of esophagogastroduodenoscopy (EGD) History of colonoscopy History of herniorrhaphy History of endoscopic sinus surgery History of tonsillectomy History of adenoidectomy Social History Smoking Status: Never smoker Do You Dip or Chew Tobacco: No Hx Alcohol Use: No Alcohol type: wine alcohol intake frequency: holidays/special occasions only Hx Substance Use: No substance use type: does not use Physical Exam Vital Signs Last Vital Signs Temp 36.8 C 05/08/25 07:00 Pulse 108 H 05/08/25 07:21 Resp 18 05/08/25 07:00 BP 90/54 L 05/08/25 07:00 Pulse Ox 95 05/08/25 07:00 O2 Del Method Room Air 05/08/25 07:00 Testing Laboratory Results 05/08/25 09:15 05/08/25 09:15
--- NOTE | 2025-05-08 10:31 | Cardioversion ---
Date of Service May 08, 2025 PG Electrical Cardioversion Rp Electrical Cardioversion Report Date of procedure: May 08, 2025 Procedure: Elective, electrical cardioversion Indication: Refractory, symptomatic atrial flutter Protocol: After informed consent and a "timeout" performed, the patient was sedated smoothly by anesthesia. The patient was monitored continuously by telemetry, end tidal CO2, pulse oximetry, and sphygmomanometry. Once anesthetized, the patient was given 100 J of synchronized biphasic energy via hands-off paddles. This successfully converted the patient to normal sinus rhythm. There were no complications. The patient tolerated the procedure well. Following the cardioversion, the patient was awake, alert, conversant, and without complaints. Conclusions: 1. Successful cardioversion to normal sinus rhythm 2. No complications. Coding Level of Care Code 56513 CARDIOVERSION, ELECTIVE Additional Codes Electrical Cardioversion Report ([id number])
--- NOTE | 2025-05-08 10:37 | Cardiology Progress Note ---
Date of Service May 08, 2025 Assessment & Plan (1) Atrial flutter with rapid ventricular response: Plan: -Remained in atrial flutter with a ventricular response of approximately 100 bpm overnight and this morning. -He is tolerating intravenous amiodarone without difficulty. -He was successfully cardioverted to sinus rhythm this morning. -Would discharge on amiodarone 200 mg daily. -Continue Eliquis at 5 mg twice daily. -Continue metoprolol succinate at 25 mg daily -Stable for hospital discharge. -I will arrange outpatient follow-up. (2) Hyperlipidemia: Plan: -Continue rosuvastatin. Admission and Anticipated Discharge Date Admission Date: May 07, 2025 Subjective The patient is resting comfortably in bed following his electrical cardioversion. He is without complaints of chest pain, dyspnea, or palpitations. All questions have been answered. Physical Exam Physical Exam: In general this is a well-developed well-nourished white male in no acute distress. HEENT exam is negative. Neck reveals normal carotid upstrokes without bruits. No JVD. There is no thyromegaly. Cardiovascular exam reveals a regular rhythm with distant heart sounds. No murmurs. Lungs are clear without rales, rhonchi, or wheezes. Abdomen is soft without bruits. Extremities reveal intact radial artery and posterior tibial pulses bilaterally. There is no peripheral edema. Results & Data Vital Signs (Past 12 Hours) Vital Signs Temp Pulse Pulse Resp BP Pulse Ox O2 Del Method 05/08/25 10:22 64 16 102/71 94 Room Air 05/08/25 07:21 108 H 05/08/25 07:00 36.8 C 69 18 90/54 L 95 Room Air 05/08/25 03:03 36.9 C 103 H 18 100/66 94 Room Air 05/07/25 22:46 36.6 C 103 H 18 110/63 94 Room Air PG Care Time/CCT Total # of Minutes Spent Total Time Spent with Patient: Total time spent is greater than 50% in coordination of care (as documented) at patient's floor/unit and/or counseling patient: Coding Level of Care Code 46568 SUB INP/OBS CARE 3/50MIN Diagnoses Atrial flutter with rapid ventricular response I48.92 Hyperlipidemia E78.5
[2025-05-08 10:52] VITALS: TEMP 97.3
[2025-05-08] MEDS: LIDOCAINE 2% 2 ML VIAL/AMP(20MG/ML) INFIL ONE (10:59)
[2025-05-08] MEDS: PROPOFOL IV EMULSION 10 MG/ML 20 ML VIAL IV ONE (11:00)
[2025-05-08] MEDS: AMIODARONE 200 MG TAB PO ONE (13:01)
[2025-05-08 13:06] VITALS: O2SAT 95
--- NOTE | 2025-05-08 13:31 | Discharge Summary ---
Discharge Summary Date of Service May 08, 2025 Principal Dx & Hospital Course #1 = Principal Diagnosis (1) Atrial flutter with rapid ventricular response: (2) Bipolar disorder: (3) Chest pain: Plan This patient is a 70-year-old male with a history of paroxysmal atrial flutter recently started on Eliquis, bipolar disorder, ADHD, HLD, GERD, seasonal allergies, BPH, neuropathy, who presents to the ED with crushing chest pain and rapid atrial flutter with rates in the 200s with hypotension systolic blood pressure 71 on arrival. Rates improved with IV diltiazem and p.o. metoprolol. #Paroxysmal atrial flutter with rapid ventricular response/chest pain/hypotension/myocardial demand ischemia-remains in atrial flutter but rates are better controlled after IV Lopressor and IV fluids. Initial troponin negative but peaked at 37 after admission. TSH normal at 2.6. I discussed his care with cardiology-based on his symptoms and Apple Watch, he most likely has been in continuous atrial flutter probably just for a little over 24 hours prior to starting Eliquis and therefore safe to chemically cardiovert. He was on an amiodarone drip for 2 days and remained in Aflutter with rates 100-110s for 48 hours and was cardioverted electrically on the morning of 05/08 back to a normal sinus rhythm with rates in the 60s to 70s. -Stable for discharge to home - Cont amiodarone 200 mg p.o. daily - Continue same dose of home Toprol XL 25 mg daily-his soft blood pressures prohibit increased dose -Follow-up with cardiology in 2 weeks - Continue Eliquis 5 Mg p.o. twice daily on discharge-of note, this is quite expensive for him-May need free samples versus switch to Coumadin as an outpatient #Bipolar disorder/ADHD-no acute issues -Held home methylphenidate and advised him to try to take this less often as it may stimulate atrial arrhythmias - Continue home Lamictal, mirtazapine - He is on oxcarbazepine for trigeminal neuralgia #HLD-no acute issues - Continue home rosuvastatin #GERD -no acute issues - Continue PPI #Seasonal allergies-no acute issues - Continue Zyrtec #BPH-no acute issues - Monitor for urinary retention-none - Continue home doxazosin #Neuropathy-no acute issues - Continue home gabapentin DVT prophylaxis-Eliquis Disposition-discharge to home Notes For Next Care Provider Medication Changes From Visit Added amiodarone 2 mg p.o. daily Admission HPI Per Admitting Provider This patient is a 70-year-old male with a history of paroxysmal atrial flutter recently started back on Eliquis, bipolar disorder, ADHD, HLD, GERD, seasonal allergies, BPH, neuropathy, who presents to the ED with crushing chest pain and a racing heartbeat. He was recently hospitalized in [place] this past weekend for rapid atrial flutter after he noticed on his Apple Watch that his heart rate was going 180-200 bpm. He was treated there with IV diltiazem and had improvement in his heart rate down to the low 100s and was sent home. This morning his heart rate was in the 200s and he almost passed out every time he tried to stand up from low blood pressure. He began having chest burning and came to the hospital. He took his home metoprolol and started back on Eliquis yesterday which she had at home from previous. In the ED, his heart rate was 200 with a wide-complex tachycardia with a baseline known RBBB. His blood pressure was 71 systolic. He was given a liter of normal saline and 2 doses of IV Lopressor 5 mg x 1 with improvement in his heart rate to the 120s and blood pressure improved up to 93 systolic. His chest pain was gone once his heart rate was controlled. He will be admitted for rapid atrial flutter. Discharge Exam Constitutional WD/WN, vitals as above Neck trachea midline, no thyromegaly Respiratory normal respiratory effort Chest (Breasts) Chest: normal inspection of chest Musculoskeletal Extremities: extremities normal to inspection; no cyanosis and no clubbing Skin no rashes, warm and dry Neurologic moves all extremities and awake; no focal motor deficits Psychiatric A+Ox3, euthymic affect Discharge Plan Discharge Items Patient Disposition: Home - Self-Care Reason For Visit: RAPID ATRIAL FLUTTER Discharge Diagnosis: Rapid atrial flutter Condition on Discharge: Good Activity: Resume your previous activity Non-emergency contact: Primary Care Provider and Cosmetologist Apprentice Call non-emergency contact if: you have any medication questions and your symptoms worsen Follow-up/Referrals: Tai Valencia MD [Physician] - 05/23/25 12:00 pm Marty Uribe [Primary Care Provider] - (Please follow-up within 1-2 weeks) Diet: Regular Addtl Attending Provider Instructions: You were admitted for rapid atrial flutter and had a cardioversion back to a normal sinus rhythm. You were started on medication called amiodarone to help keep you from going back into atrial flutter. You should continue on Eliquis 5 mg twice a day. If it is too cost prohibiting, talk to your garment cutter about getting free samples, or switching to Coumadin as a cheaper alternative blood thinner. Here are some guidelines about taking Eliquis: There is an increased risk of blood clots if you stop taking Eliquis. Do not stop taking Eliquis without talking to your doctor.. Stopping Eliquis increases your risk of having a stroke. Three is an increased risk of bleeding. Eliquis can cause bleeding which can be serious and may lead to . This is because Eliquis is a blood thinner medicine (anticoagulant) that lowers blood clotting. During treatment with Eliquis you are likely to bruise more easily, and it may take longer for bleeding to stop. * If you ever cannot get the bleeding to stop please report to the ER * If you have a bruise that is large/painful or swollen you should also be seen by a medical provider Call your doctor or get medical help right away if you or your child develop any of these signs or symptoms of bleeding: unexpected bleeding or bleeding that lasts a long time, such as: * Nose bleeds that happen often * unusual bleeding from the gums * bleeding that is severe or you cannot control * red, pink or brown urine * bright red or black stools (looks like tar) * cough up blood or blood clots * vomit blood or your vomit looks like coffee grounds If you have a fall and hit your head, please come to the ER and get checked out. Being on a blood thinner increases your risk of brain bleeding with falls. Avoid high risk activities, such as: * standing on tall ladders * riding motorcycles * anything where you are high risk for falls or trauma Avoid taking NSAIDs (pain medication) while you are taking a blood thinner. This includes: * Ibuprofen, Aleve Advil, Naproxen. * If you are ever unsure you can ask your doctor or pharmacist. * Tylenol is SAFE to take. If you have any new or worsening chest pain or shortness of breath please return to the ER. Pending Studies at Discharge: No Stand-Alone Forms: My [facility], Smoking Cessation Medications and DC Order Prescriptions: New amiodarone 200 mg Tablet 200 mg PO QAM Qty: 30 0RF Continued metoprolol succinate 25 mg tablet extended release 24 hr 25 mg PO QAM Qty: 90 3RF lamotrigine [Lamictal] 100 mg tablet 100 mg PO HS cetirizine [Zyrtec] 10 mg Tablet 10 mg PO QAM Rx Instructions: OTC not able to verify with pharmacy 10/29/23 methylphenidate HCl [Ritalin] 10 mg Tablet 10 mg PO QAM MDD 20mg/24hr Hold Instructions: Hold until follow-up with PCP, if heart rate well controlled and blood pressure is good can resume. Rx Instructions: May take additional later in the day if needed doxazosin 8 mg Tablet 8 mg PO HS Rx Instructions: filled jul 2023 mirtazapine 15 mg Tablet 15 mg PO HS docusate sodium 100 mg Tablet 100 mg PO BID PRN (Reason: Constipation) rosuvastatin [Crestor] 5 mg Tablet 5 mg PO QPM gabapentin 300 mg capsule 900 mg PO BID pantoprazole 40 mg tablet,delayed release (DR/EC) 40 mg PO DAILYBB fluticasone propionate [Flonase Allergy Relief] 50 mcg/actuation spray,suspension 1 spray intranasal HS PRN (Reason: Allergy Symptoms) oxcarbazepine 150 mg tablet 150 mg PO TID mometasone 0.1 % solution 1 applic TOPICAL DAILY Eliquis 5 mg Tablet 5 mg PO BID Qty: 60 0RF Changed lamotrigine [Lamictal] 25 mg tablet 25 mg PO HS Qty: 0 0RF Discharge Orders: Discharge Order (Routine); Ordered 05/08/25 Ordered By: Viki Canchola Admission Data Admit Date/Time: 05/07/25 14:23 Attending Provider: Viki Canchola Admit Provider: Viki Canchola Primary Care Provider: Marty Uribe Other Providers: Tai Valencia; Viki Canchola Hospital Stay Data Consultations 05/06/25 09:49 Consult Cardiology Stat 05/06/25 09:52 ED Decision to Admit Stat Procedures Performed Operation Date: 05/08/25 11:00 Actual Procedures p Cardioversion - Tai Valencia MD Pending Results Patient Have Any Pending Studies at Discharge: No Discharge Instructions Given to Patient (Per Discharging Provider) You were admitted for rapid atrial flutter and had a cardioversion back to a normal sinus rhythm. You were started on medication called amiodarone to help keep you from going back into atrial flutter. You should continue on Eliquis 5 mg twice a day. If it is too cost prohibiting, talk to your garment cutter about getting free samples, or switching to Coumadin as a cheaper alternative blood thinner. Here are some guidelines about taking Eliquis: There is an increased risk of blood clots if you stop taking Eliquis. Do not stop taking Eliquis without talking to your doctor.. Stopping Eliquis increases your risk of having a stroke. Three is an increased risk of bleeding. Eliquis can cause bleeding which can be serious and may lead to . This is because Eliquis is a blood thinner medicine (anticoagulant) that lowers blood clotting. During treatment with Eliquis you are likely to bruise more easily, and it may take longer for bleeding to stop. * If you ever cannot get the bleeding to stop please report to the ER * If you have a bruise that is large/painful or swollen you should also be seen by a medical provider Call your doctor or get medical help right away if you or your child develop any of these signs or symptoms of bleeding: unexpected bleeding or bleeding that lasts a long time, such as: * Nose bleeds that happen often * unusual bleeding from the gums * bleeding that is severe or you cannot control * red, pink or brown urine * bright red or black stools (looks like tar) * cough up blood or blood clots * vomit blood or your vomit looks like coffee grounds If you have a fall and hit your head, please come to the ER and get checked out. Being on a blood thinner increases your risk of brain bleeding with falls. Avoid high risk activities, such as: * standing on tall ladders * riding motorcycles * anything where you are high risk for falls or trauma Avoid taking NSAIDs (pain medication) while you are taking a blood thinner. This includes: * Ibuprofen, Aleve Advil, Naproxen. * If you are ever unsure you can ask your doctor or pharmacist. * Tylenol is SAFE to take. If you have any new or worsening chest pain or shortness of breath please return to the ER. Total Time Total Time Spent Total Time Spent (In Minutes): 35 minutes Total Time Includes: Examination of the Patient, Discharge Planning, Medication Reconciliation and Communication With Other Providers (Cardiology) Coding Level of Care Code 73082 INP/OBS DISCH >30 MIN Diagnoses Atrial flutter with rapid ventricular response I48.92 Bipolar disorder F31.9 Chest pain R07.9 Chest pain type: unspecified
--- NOTE | 2025-05-08 14:44 | Anesthesiology Progress Note ---
Date of Service May 08, 2025 Anesthesia Post Procedure Vital Signs Vital Signs: Temp Pulse Pulse Resp BP Pulse Ox O2 Del Method 05/08/25 13:42 36.3 C L 73 18 97/60 L 95 05/08/25 13:03 73 18 97/60 L 95 Room Air 05/08/25 11:58 68 16 98/63 L 93 Room Air 05/08/25 11:10 65 16 104/68 93 Room Air 05/08/25 10:51 36.3 C L 66 16 98/62 L 94 Room Air 05/08/25 10:50 64 05/08/25 10:37 63 16 110/70 94 Room Air 05/08/25 10:22 64 16 102/71 94 Room Air 05/08/25 07:21 108 H 05/08/25 07:00 36.8 C 69 18 90/54 L 95 Room Air 05/08/25 03:03 36.9 C 103 H 18 100/66 94 Room Air 05/07/25 22:46 36.6 C 103 H 18 110/63 94 Room Air 05/07/25 22:11 104 H 05/07/25 19:42 36.8 C 112 H 18 98/61 L 94 Room Air 05/07/25 16:00 36.5 C 119 H 18 100/61 96 Room Air Transfer of Care Handoff Completed per policy Notes Mental Status: alert / awake / arousable and participated in evaluation Patient Amnestic to Procedure: Yes Nausea / Vomiting: adequately controlled Pain: adequately controlled Airway Patency, RR, SpO2: stable & adequate BP & HR: stable & adequate Hydration State: stable & adequate Anesthetic Complications: no major complications apparent
[2025-05-08 15:21] VITALS: PULSE 69
[2025-05-08 15:35] VITALS: RESP 68
--- NOTE | 2025-05-08 15:36 | Electrocardiogram Report ---
Test Reason : Blood Pressure : */* mmHG Vent. Rate : 67 BPM Atrial Rate : 67 BPM P-R Int : 202 ms QRS Dur : 104 ms QT Int : 398 ms P-R-T Axes : 64 262 32 degrees QTcB Int : 420 ms Normal sinus rhythm Possible Left atrial enlargement Right superior axis deviation Incomplete right bundle branch block Poor R wave progression, consider anterior [place] vs. lead placement vs. LVH T wave abnormality, consider lateral ischemia Abnormal ECG When compared with ECG of 06-May-2025 11:21, Significant changes have occurred Confirmed by Tai Valencia ([id number]) on 05/08/2025 3:36:09 PM Referred By: REFERRED SELF Confirmed By: Tai Valencia
[2025-05-08 17:12] VITALS: BP 107/62
[2025-05-08] MEDS: SODIUM CHLORIDE 0.9% 500 ML IV ONE (17:30)
[2025-05-09] MEDS ORDERED: AMIODARONE 200 MG TAB PO SCH (09:00)
== END 2025-05-08 18:02 | disposition home or self-care (01) | DRG 309 ==
LOC: SUATTDRO → ED 09:03 → EDINP 09:03 → 2S 14:04 → SUATTDRO 05-07 14:23